=== PATIENT | female | born 1955 | race Caucasian/White ===

== ENCOUNTER 2018-06-24 08:48 | Observation (INO) | payer OTHER ==
--- OUTSIDE RECORDS SUMMARY | 2018-06-24 08:54 | XMS REPORT | Continuity of Care Document ---
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 FOLLOW UP Active 11/27/[address] 6 MONTH FOLLOW UP Active 11/24/[address] Discharge 06/22/20 06/25/2017 [facility] Diagnosis: Chest 17 [facility] pain 3 MONTH FOLLOW Active 02/01/20 [facility] ER FOLLOW UP Active 02/01/[address] Discharge 01/05/20 01/07/2017 [facility] Diagnosis: Acute 17 [facility] pain of both knees Discharge 01/05/20 01/07/2017 [facility] Diagnosis: 17 [facility] Effusion of knee joint, left KNEE PAIN Active 01/05/20 [facility] 17 [facility] LOW BACK PAIN Active 10/15/20 [facility] 16 [facility] Discharge 10/13/20 10/16/2016 [facility] Diagnosis: Acute 16 [facility] diverticulitis Discharge 10/13/20 10/16/2016 [facility] Diagnosis: 16 Hospital Abdominal pain, acute, left lower quadrant ABD PAIN Active 10/13/20 [facility] 16 Hospital 3 MONTH FOLLOW UP Active 09/06/[address] OBESITY Active 09/06/20 [facility] H[facility]PITAL FOLLOW UP Active 06/08/[address] CHEST PAIN Active 06/07/20 [facility] 16 [facility] ACUTE BACK Active 06/07/20 [facility] PAIN/SOB 16 Hospital CHEST PAIN Active 06/07/[address] Cardiac Active Problem 03/19/2018 [facility] catheterization Neuro,[facility],Sudarshan Galarza,[facility], [facility] Hyperlipemia Active Problem 03/19/2018 [facility] Neuro,[facility],Sudarshan Galarza,[facility], [facility] Hypertension Active Problem 03/19/2018 [facility] Neuro,[facility] J LUIS Galarza,[facility], [facility] [place] (<span Active Problem 03/19/2018 [facility] ID="[id number]"> Neuro, Confirmed</span>) [facility] J LUIS Galarza,[facility], [facility] Morbid obesity Active Problem 03/19/2018 [facility] Neuro, J LUIS Galarza,[facility] OA (<span Resolved Problem 03/19/2018 [facility] ID="[id number]"> Neuro, Confirmed</span>) [facility] J LUIS Galarza,[facility], [facility] Stent Active Problem 10/30/2017 [facility], J LUIS Galarza, [facility] Low back pain 03/14/2018 [facility] Degenerative 03/14/2018 [facility] disease of nervous [facility] system, unspecified 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 [facility] or radiculopathy, 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/2018 [facility]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, lumbar region Spinal stenosis, 03/14/2018 [facility] lumbar region [facility] without neurogenic claudication Unspecified 03/14/2018 [facility] dementia without [facility] behavioral disturbance Chest pain, 03/05/2018 [facility] Coronary 03/05/2018 [facility] angioplasty status Medical Center Essential 03/05/2018 [facility] hypertension [facility] Center Hyperlipidemia, 03/05/2018 [facility] Unspecified 03/05/2018 [facility] osteoarthritis, Medical unspecified site Center Morbid obesity due 03/05/2018 [facility] to excess calories Medical Center Old myocardial 03/05/2018 [facility] infarction [facility] Center Myasthenia gravis 03/05/2018 [facility] without Medical exacerbation Center CHEST PAIN, Active [facility] Active [facility] ADULT MEDICAL EXAM Medical W/ Center OBESITY, Active [facility] UNSPECIFIED Rehab Medications Medication Details Route Status Patient Ordering Order Source Instructions Provider Date tizanidine 4 mg 4 mg=1 tab, PO, Active 12/12/ Leonel oral tablet Bedtime, # 30 2018 Neuro tab, 3 Refill(s), Pharmacy: [facility] [id number] predniSONE 2.5 2.5 mg=1 tab, Active 12/12/ [facility] mg oral tablet PO, Daily, # 2017 Neuro tab, 3 Refill(s), Pharmacy: [facility] [id number] pyridostigmine 180 mg=1 tab, Active 12/12/ [facility] 180 mg oral PO, QAM, # 2017 Neuro tablet, extended tab, 3 release Refill(s), Pharmacy: [facility] [id number] tizanidine 4 mg 4 mg=1 tab, PO, Active 09/21/ [facility] oral tablet Bedtime, # 30 2016 Neuro tab, 1 Refill(s), Pharmacy: [facility] [id number] pyridostigmine 60 mg=1 tab, Active 09/19/ [facility] 60 mg oral PO, TID, # 90 2016 Neuro tablet tab, 2 Refill(s), Pharmacy: [facility] [address]649 atorvastatin 80 80 mg=1 tab, Active [place] mg oral tablet PO, Daily, # 90 2017 Medical tab, 3 Center Refill(s), Pharmacy: [facility] [id number] isosorbide See Active [place] mononitrate 30 Instructions, 3 2017 Medical mg oral tablet, tabs PO QAM, # Center extended release 90 tab, 2 Refill(s), Pharmacy: [facility] [address] Aspirin 324 mg, 4 tab, No Longer [facility] Route: PO, Drug Active 2017 Hospital form: CHEWTAB, ONCE, Dosing Weight 119.091, kg, Priority: STAT, Start date: 06/21/17 22:42:00 CDT, Stop date: 06/21/17 22:42:00 CDTNotes: Take with food. Nitroglycerin 1 inch, Route: No Longer [facility] 0.02 MG/MG TOP, Drug Form: Active 2017 [facility] Topical Ointment OINT, Dosing Weight 119.091, kg, ONCE, STAT, Start date: 06/21/17 22:42:00 CDT, Stop date: 06/21/17 22:42:00 CDTNotes: 1 gram is approximately 1 inch of nitroglycerin ointment (20 mg NTG per gram) (Same as:Nitro-Bid) Saline Flush 10 mL, Route: No Longer [facility] 0.9% IVP, Drug Form: Active 2016 Hospital INJ, Dosing Weight 119.091, kg, PRN, PRN Line Flush, Start date: 06/21/17 22:42:00 CDT, Duration: 30 day, Stop date: 07/21/17 22:41:00 CDTNotes: (Same as: BD Posiflush) Saline Flush 10 mL, Route: Inactive [facility] 0.9% IVP, Drug Form: 2017 Hospital INJ, Dosing Weight 119.091, kg, PRN, PRN Line Flush, Start date: 06/21/17 18:13:00 CDT, Duration: 30 day, Stop date: 07/21/17 18:12:00 CDTNotes: (Same as: BD Posiflush) 24 HR Isosorbide 60 mg=1 tab, Active [place] Mononitrate 60 PO, QAM, # 30 2017 Medical MG Extended tab, 11 Center Release Tablet Refill(s), [Imdur] Pharmacy: [facility] [id number] valsartan 320 mg 320 mg=1 tab, Active [facility] oral tablet PO, Daily, # 30 2016 Medical tab, 11 Center Refill(s), Pharmacy: [facility] [id number] spironolactone 25 mg=1 tab, Active [place] 25 mg oral PO, Daily, # 30 2016 Medical tablet tab, 11 Center Refill(s), Pharmacy: [facility] [address] prasugrel 10 MG 10 mg=1 tab, Active [facility] Oral Tablet PO, Daily, # 30 2017 Medical [Effient] tab, 11 Center Refill(s), [facility] [id number] atorvastatin 80 80 mg=1 tab, Active [place] mg oral tablet PO, Daily, # 30 2017 Medical tab, 0 Center Refill(s), [facility] [address] Acetaminophen 1 tab, PO, Q6H, Active [facility] 325 MG / X 5 day, # 20 2017 Hospital Hydrocodone tab, 0 Bitartrate 5 MG Refill(s) Oral Tablet [[place] 5/325] {21 See Active [facility] (Methylprednisol Instructions, 2017 [facility] one 4 MG Oral PO, Take by Tablet [Medrol]) mouth as } Pack [Medrol directed on Dosepak] label., # 1 Pack, 0 Refill(s) naproxen 250 mg 250 mg=1 tab, Active [facility] oral tablet PO, BID, X 7 2016 Hospital day, # 14 tab, 0 Refill(s) BD Normal Saline 10 mL, Route: Inactive [facility] Flush IV, Drug Form: [address] [place] [address] INJ, PRN, PRN Line Flush, Start date: 01/04/17 12:28:00 CDT, Duration: 30 day, Stop date: 02/03/17 12:27:00 CDTNotes: (Same as: BD Posiflush) Motrin 600 mg, Route: Inactive [facility] PO, Drug form: 2017 [facility] TAB, ONCE, Dosing Weight 119.545, kg, Priority: STAT, Start date: 01/04/17 12:15:00 CDT, Stop date: 01/04/17 12:15:00 CDT valsartan 320 mg, 2 tab, No Longer [facility] Route: PO, Drug Active 2015 Hospital form: TAB, Daily, Dosing Weight 118.182, kg, Start date: 10/18/16 9:00:00 GUEST RELATIONS COORDINATOR, Duration: 30 day, Stop date: 11/16/16 9:00:00 CSTNotes: Same as Sang pantoprazole 40 40 mg=1 tab, Active [facility] mg oral enteric PO, Daily, # 30 2015 Hospital coated tablet tab, 1 Refill(s), Pharmacy: [facility] [id number] moxifloxacin 400 400 mg=1 tab, Active [facility] MG Oral Tablet PO, Daily, X 10 2015 Hospital day, # 10 tab, 0 Refill(s), Pharmacy: [facility] [address] Tylenol 650 mg, 2 tab, Inactive [facility] Route: PO, Drug 2015 Hospital form: TAB, Q6H, Dosing Weight 118.182, kg, PRN Pain 1-3/Temp > 100.4 F, Start date: 10/17/16 13:12:00 GUEST RELATIONS COORDINATOR, Duration: 30 day, Stop date: 11/16/16 13:11:00 CSTNotes: Do not exceed 4 gm/day. (Same as: Tylenol) valsartan 320 mg, 2 tab, Inactive Route: PO, Drug 2015 Hospital form: TAB, ONCE, Dosing Weight 118.182, kg, Start date: 10/17/16 13:11:00 GUEST RELATIONS COORDINATOR, Stop date: 10/17/16 13:11:00 CSTNotes: Same as Diovan Levaquin 750 mg, 150 mL, No Longer [facility] Route: IV, Drug Active 2015 Hospital form: SOLN, [id number], Start date: 10/16/16 11:30:00 GUEST RELATIONS COORDINATOR, Duration: 30 day, Stop date: 11/14/16 11:30:00 CSTNotes: (Same as:Levaquin) Lovenox 40 mg, 0.4 mL, No Longer [facility] Route: SUB-Q, Active 2015 Hospital Drug form: INJ, [id number], Dosing Weight 118.182, kg, Start date: 10/16/16 9:00:00 GUEST RELATIONS COORDINATOR, Duration: 30 day, Stop date: 11/14/16 9:00:00 CSTNotes: (Same as: Lovenox) Spironolactone 25 mg, 1 tab, No Longer [facility] Route: PO, Drug Active 2015 Hospital form: TAB, Daily, Dosing Weight 118.182, kg, Start date: 10/16/16 9:00:00 GUEST RELATIONS COORDINATOR, Duration: 30 day, Stop date: 11/14/16 9:00:00 CSTNotes: (Same As: Aldactone) Imdur 60 mg, 1 tab, No Longer [facility] Route: PO, Drug Active 2015 Hospital form: ERTAB, QAM, Dosing Weight 118.182, kg, Start date: 10/16/16 9:00:00 GUEST RELATIONS COORDINATOR, Duration: 30 day, Stop date: 11/14/16 9:00:00 CSTNotes: (Same as:Imdur) "Do Not Crush" Take on empty stomach/ full glass of water. Do not crush moxifloxacin 400 mg, Route: Inactive [facility] IVPB, [id number], 2015 Hospital Dosing Weight 118.182, kg, Start date: 10/16/16 9:00:00 GUEST RELATIONS COORDINATOR, Duration: 30 day, Stop date: 11/14/16 9:00:00 GUEST RELATIONS COORDINATOR Lunesta 3 mg, Route: Inactive [facility] PO, Drug form: 2015 Hospital TAB, Bedtime, Dosing Weight 118.182, kg, PRN Insomnia, Start date: 10/16/16 8:27:00 GUEST RELATIONS COORDINATOR, Duration: 30 day, Stop date: 11/15/16 8:26:00 GUEST RELATIONS COORDINATOR Diazepam 2 mg, 1 tab, No Longer [facility] Route: PO, Drug Active 2015 Hospital form: TAB, BID, Dosing Weight 118.182, kg, PRN Anxiety, Start date: 10/16/16 8:27:00 GUEST RELATIONS COORDINATOR, Duration: 30 day, Stop date: 11/15/16 8:26:00 CSTNotes: (Same as: Valium) Protonix Route: IVP, No Longer [facility] BID-Before Active 2015 Hospital Meals, Dosing Weight 118.182, kg, Start date: 10/16/16 7:30:00 GUEST RELATIONS COORDINATOR, Duration: 30 day, Stop date: 11/14/16 16:30:00 CSTNotes: For IV push reconstitute with 10 ml 0.9% sodium chloride and push over 2 minutes. (Same as: Protonix) atorvastatin 80 mg, 4 tab, No Longer [facility] Route: PO, Drug Active 2015 Hospital form: TAB, Daily, Dosing Weight 118.182, kg, Start date: 10/15/16 21:00:00 GUEST RELATIONS COORDINATOR, Duration: 30 day, Stop date: 11/13/16 21:00:00 CSTNotes: (Same As: Lipitor) Carbamazepine 300 mg, 3 tab, No Longer [facility] Route: PO, Drug Active 2015 Hospital form: ERTAB, Bedtime, Dosing Weight 118.182, kg, Start date: 10/15/16 21:00:00 GUEST RELATIONS COORDINATOR, Stop date: 11/13/16 21:00:00 CSTNotes: Do not crush or chew. (Same As: Tegretol XR) Sucralfate 100 1 gm, 1 tab, No Longer [facility] MG/ML Oral Route: PO, Drug Active [address] [place] [address] Suspension form: TAB, QID, [Carafate] Dosing Weight 118.182, kg, Start date: 10/15/16 17:00:00 GUEST RELATIONS COORDINATOR, Duration: 30 day, Stop date: 11/14/16 13:00:00 CSTNotes: May interfere w/enteral feeds - Take 1 hr before or 2 hr after antacids, dairy pdt, meals & minerals - On empty stomach. For patients unable to swallow tablet, dissolve in 10mL - 30mL of water or juice and stir before giving. (Same As: Carafate) Protonix 40 mg, Route: Inactive [facility] IVP, Drug form: [address] [place] [address] INJ, Before Dinner, Dosing Weight 118.182, kg, Start date: 10/15/16 16:30:00 GUEST RELATIONS COORDINATOR, Duration: 30 day, Stop date: 11/13/16 16:30:00 CSTNotes: For IV push reconstitute with 10 ml 0.9% sodium chloride and push over 2 minutes. (Same as: Protonix) Phenergan 12.5 mg, 0.5 Inactive 10/15[facility] mL, Route: IV [address] [place] [address] Central, Q6H, Dosing Weight 118.182, kg, PRN Nausea & Vomiting, Start date: 10/15/16 10:03:00 GUEST RELATIONS COORDINATOR, Duration: 30 day, Stop date: 11/14/16 10:02:00 CSTNotes: Do not give IV push. (Same as: Phenergan) Phenergan 12.5 mg, Route: Inactive [facility] IV Central, [address] [place] [address] Q6H, Dosing Weight 118.182, kg, PRN Nausea & Vomiting, Priority: STAT, Start date: 10/15/16 9:30:00 GUEST RELATIONS COORDINATOR, Duration: 30 day, Stop date: 11/14/16 9:29:00 GUEST RELATIONS COORDINATOR Dilaudid 0.5 mg, 0.25 Inactive 10/15[facility] mL, Route: IVP, [address] [place] [address] Drug form: INJ, Q6H, Dosing Weight 118.182, kg, PRN Pain Score 7-10, if morphine is not working, Priority: STAT, Start date: 10/15/16 9:29:00 GUEST RELATIONS COORDINATOR, Duration: 30 day, Stop date: 11/14/16 9:28:00 CSTNotes: Same as Dilaudid Effient 10 mg, 1 tab, No Longer [facility] Route: PO, Drug Active 2015 [facility] form: TAB, Daily, Dosing Weight 118.182, kg, Start date: 10/15/16 9:00:00 GUEST RELATIONS COORDINATOR, Duration: 30 day, Stop date: 11/13/16 9:00:00 CSTNotes: Same as Effient For patients 60kg, without history of TIA/Ischemic stroke and without likely bypass surgery Pramipexole 0.25 mg, 1 tab, No Longer [facility] Route: PO, Drug Active 2015 [facility] form: TAB, TID, Dosing Weight 118.182, kg, Start date: 10/15/16 9:00:00 GUEST RELATIONS COORDINATOR, Duration: 30 day, Stop date: 11/13/16 17:00:00 CSTNotes: (Same as: Mirapex) Ambien 5 mg, 1 tab, No Longer [facility] Route: PO, Drug Active [address] [place] [address] form: TAB, Bedtime, PRN Insomnia, Start date: 10/15/16 3:18:00 GUEST RELATIONS COORDINATOR, Duration: 30 day, Stop date: 11/14/16 3:17:00 CSTNotes: (Same As: Ambien) Nitroglycerin 0.4 mg, 1 tab, No Longer [facility] 0.4 MG Route: SL, Drug Active [address] [place] [address] Sublingual form: TAB, Tablet Q5Min, Dosing Weight 118.182, kg, PRN Chest Pain, Start date: 10/15/16 3:10:00 GUEST RELATIONS COORDINATOR, Duration: 30 day, Stop date: 11/14/16 3:09:00 CSTNotes: (Same as:Nitroquick, Nitrostat) "Do Not Crush" Sublingual tablet Lunesta 3 mg, Route: Inactive [facility] PO, Drug form: [address] [place] [address] TAB, Bedtime, Dosing Weight 118.182, kg, PRN Insomnia, Start date: 10/15/16 3:10:00 GUEST RELATIONS COORDINATOR, Duration: 30 day, Stop date: 11/14/16 3:09:00 GUEST RELATIONS COORDINATOR Morphine 2 mg, 1 mL, Inactive [facility] Route: IVP, 2015 [facility] Drug form: SOLN, ONCE, Dosing Weight 118.182, kg, Start date: 10/15/16 2:19:00 GUEST RELATIONS COORDINATOR, Stop date: 10/15/16 2:19:00 GUEST RELATIONS COORDINATOR Sodium Chloride 25 mL, Route: No Longer [facility] 0.9% IV IV, Start date: Active [address] [place] [address] 10/15/16 0:54:00 GUEST RELATIONS COORDINATOR, Duration: 30 day, Stop date: 11/14/16 0:53:00 GUEST RELATIONS COORDINATOR, PRN Line Flush pantoprazole Route: IVP, Inactive [facility] Daily, Dosing 2015 Hospital Weight 117.727, kg, Priority: NOW, Start date: 10/15/16 0:45:00 GUEST RELATIONS COORDINATOR, Duration: 30 day, Stop date: 11/13/16 16:30:00 CSTNotes: For IV push reconstitute with 10 ml 0.9% sodium chloride and push over 2 minutes. (Same as: Protonix) Dextrose 5% with 1,000 mL, Rate: Inactive [facility] 0.45% NaCl IV 125 ml/hr, [address] [place] [address] 1000 mL Infuse over: 8 hr, Route: IV, Dosing Weight 117.727 kg, Total Volume: 1,000, Start date: 10/15/16 0:39:00 GUEST RELATIONS COORDINATOR, Duration: 30 day, Stop date: 11/14/16 0:38:00 GUEST RELATIONS COORDINATOR Flagyl 500 mg, 100 mL, No Longer [facility] Route: IVPB, Active 2015 [facility] Drug form: INJ, [id number], Dosing Weight 117.727, kg, Priority: NOW, Start date: 10/15/16 0:38:00 GUEST RELATIONS COORDINATOR, Duration: 30 day, Stop date: 11/13/16 20:00:00 CSTNotes: (Same as: Flagyl) Avoid alcohol. Ciprofloxacin 400 mg, 200 mL, No Longer [facility] Route: IVPB, Active 2015 [facility] Drug form: INJ, [id number], Dosing Weight 117.727, kg, Priority: NOW, Start date: 10/15/16 0:38:00 GUEST RELATIONS COORDINATOR, Duration: 30 day, Stop date: 11/13/16 13:00:00 CSTNotes: Do not refrigerate Acetaminophen 650 mg, 1 supp, No Longer [facility] Route: [place], Drug [facility] 2015 [facility] form: SUPP, Q4H, Dosing Weight 117.727, kg, PRN Pain 1-3/Temp > 100.4 F, Start date: 10/15/16 0:36:00 GUEST RELATIONS COORDINATOR, Duration: 30 day, Stop date: 11/14/16 0:35:00 CSTNotes: Max acetaminophen=4 000 mg/day (4 gm/day). (Same as: Tylenol) Morphine 2 mg, 1 mL, No Longer [facility] Route: IVP, [facility] 2015 [facility] Drug form: SOLN, Q3H, Dosing Weight 117.727, kg, PRN Pain Score 7-10, Start date: 10/15/16 0:36:00 GUEST RELATIONS COORDINATOR, Duration: 30 day, Stop date: 11/14/16 0:35:00 GUEST RELATIONS COORDINATOR Saline Flush 10 ml, Route: No Longer [facility] 0.9% IVP, Drug Form: [address] INJ, Dosing Weight 117.727, kg, PRN, PRN Line Flush, Start date: 10/15/16 0:36:00 GUEST RELATIONS COORDINATOR, Duration: 30 day, Stop date: 11/14/16 0:35:00 CSTNotes: (Same as: BD Posiflush) Ondansetron 4 mg, 2 mL, No Longer [facility] Route: IVP, [address] Drug form: INJ, Q6H, Dosing Weight 117.727, kg, PRN Nausea & Vomiting, Start date: 10/15/16 0:36:00 GUEST RELATIONS COORDINATOR, Duration: 30 day, Stop date: 11/14/16 0:35:00 CSTNotes: (Same as: Zofran) MEDICATION WASTE Product Size: 4 mg Product Wasted: _0__ mg D5W 1/2NS 1,000 1,000 mL, Rate: No Longer [facility] mL 125 ml/hr, [address] Infuse over: 8 hr, Route: IV, Dosing Weight 117.727 kg, Total Volume: 1,000, Start date: 10/15/16 0:36:00 GUEST RELATIONS COORDINATOR, Duration: 30 day, Stop date: 11/14/16 0:35:00 GUEST RELATIONS COORDINATOR Ondansetron 4 mg, Route: No Longer [facility] IVP, Drug form: Active 2016 [facility] INJ, ONCE, Dosing Weight 117.727, kg, Priority: STAT, Start date: 10/14/16 22:17:00 GUEST RELATIONS COORDINATOR, Stop date: 10/14/16 22:17:00 GUEST RELATIONS COORDINATOR Sodium Chloride 1,000 mL, 2,000 No Longer [facility] 0.154 MEQ/ML ml/hr, Infuse Active 2016 [facility] Injectable Over: 30 Solution minutes, Route: IV, ONCE, Priority: STAT, Dosing Weight 117.727 kg, Start date: 10/14/16 22:17:00 GUEST RELATIONS COORDINATOR, Duration: 1 doses or times, Stop date: 10/14/16 22:17:00 GUEST RELATIONS COORDINATOR Metronidazole 500 mg=1 tab, On Hold [facility] 500 MG Oral PO, TID, # 30 2015 [facility] Tablet [Flagyl] tab, 0 Refill(s) Ciprofloxacin 500 mg=1 tab, On Hold [facility] 500 MG Oral PO, Q12H, # [address] [place] [address] Tablet [Cipro] tab, 0 Refill(s) tramadol 50 mg=1 tab, On Hold [facility] hydrochloride 50 PO, Q4H, PRN 2015 Hospital MG Oral Tablet Pain, # 20 tab, 0 Refill(s) Cipro 500 mg, 1 tab, Inactive [facility] Route: PO, Drug 2015 [facility] form: TAB, ONCE, Dosing Weight 117.773, kg, Priority: STAT, Start date: 10/13/16 14:42:00 GUEST RELATIONS COORDINATOR, Stop date: 10/13/16 14:42:00 CSTNotes: May interfere w/enteral feedings - Take 1 hr before or 2 hrs after antacids, dairy pdt & minerals. On empty stomach. Flagyl 500 mg, 1 tab, Inactive [facility] Route: PO, Drug 2015 [facility] form: TAB, ONCE, Dosing Weight 117.773, kg, Priority: STAT, Start date: 10/13/16 14:42:00 GUEST RELATIONS COORDINATOR, Stop date: 10/13/16 14:42:00 CSTNotes: (Same as: Flagyl) Take with food/ avoid alcohol Sodium Chloride IV, 0 ml/hr, Inactive [facility] 0.9% IV PRN, PRN Line [address] [place] [address] Flush, Start date: 10/13/16 12:15:00 GUEST RELATIONS COORDINATOR, Duration: 30, 25 ml BD Normal Saline 10 mL, Route: Inactive [facility] Flush IV, Drug Form: [address] [place] [address] INJ, PRN, PRN Line Flush, Start date: 10/13/16 12:15:00 GUEST RELATIONS COORDINATOR, Duration: 30 day, Stop date: 11/12/16 12:14:00 CSTNotes: (Same as: BD Posiflush) Morphine 4 mg, 1 mL, Inactive [facility] Route: IVP, [address] [place] [address] Drug form: INJ, ONCE, Dosing Weight 117.727, kg, Priority: STAT, Start date: 10/13/16 12:07:00 GUEST RELATIONS COORDINATOR, Stop date: 10/13/16 12:07:00 CSTNotes: (Same as:MORPhine Sulfate) Sodium Chloride 1,000 mL, 2,000 Inactive [facility] 0.154 MEQ/ML ml/hr, Infuse [address] [place] [address] Injectable Over: 30 Solution minutes, Route: IV, 1,000, Drug form: INJ, ONCE, Priority: STAT, Dosing Weight 117.727 kg, Start date: 10/13/16 12:07:00 GUEST RELATIONS COORDINATOR, Duration: 1 doses or times, Stop date: 10/13/16 12:07:00 GUEST RELATIONS COORDINATOR Ondansetron 4 mg, 2 mL, Inactive [facility] Route: IVP, [address] [place] [address] Drug form: INJ, ONCE, Dosing Weight 117.727, kg, Priority: STAT, Start date: 10/13/16 12:07:00 GUEST RELATIONS COORDINATOR, Stop date: 10/13/16 12:07:00 CSTNotes: (Same as: Zofran) MEDICATION WASTE Product Size: 4 mg Product Wasted: _0__ mg diazepam 2 mg 2 mg=1 tab, PO, Active [place] oral tablet BID, PRN 2016 [facility] Anxiety, # 60 Center tab, 0 Refill(s) pramipexole 0.25 0.25 mg=1 tab, Active [place] mg oral tablet PO, TID, 0 2015 Medical Refill(s) Center Trazodone 100 mg=1 tab, Active [place] Hydrochloride PO, Bedtime, # 2016 Medical 100 MG Oral 30 tab, 0 Center Tablet Refill(s) carBAMazepine 300 mg=1 cap, Active [place] 300 mg oral PO, Bedtime, 0 2016 Medical capsule, Refill(s) Center extended release Baclofen 20 mg, 2 tab, Inactive [facility] Route: PO, Drug 2016 Hospital form: TAB, ONCE, Dosing Weight 116.591, kg, Start date: 06/08/16 10:16:00 CDT, Stop date: 06/08/16 10:16:00 CDTNotes: (Same As: Lioresal) baclofen 20 mg 20 mg=1 tab, Active [facility] oral tablet PO, TID, PRN 2016 [facility] Spasms, # 90 tab, 0 Refill(s) 24 HR Isosorbide 60 mg=1 tab, Active [facility] Mononitrate 60 PO, QAM, # 30 2016 Hospital MG Extended tab, 11 Release Tablet Refill(s) [Imdur] Nitroglycerin 0.4 mg=1 tab, Active [facility] 0.4 MG SL, Q5Min, PRN 2016 [facility] Sublingual Chest pain, Tablet Give up to 3 doses. Call 911 if pain persists., # 100 tab, 3 Refill(s) valsartan 320 mg, 2 tab, Inactive [facility] Route: PO, Drug 2015 Hospital form: TAB, Daily, Dosing Weight 116.364, kg, Start date: 06/08/16 9:00:00 CDT, Duration: 30 day, Stop date: 07/07/16 9:00:00 CDTNotes: Same as Diovan Spironolactone 25 mg, 1 tab, Inactive [facility] Route: PO, Drug 2015 Hospital form: TAB, Daily, Dosing Weight 116.364, kg, Start date: 06/08/16 9:00:00 CDT, Duration: 30 day, Stop date: 07/07/16 9:00:00 CDTNotes: (Same As: Aldactone) Effient 10 mg, 1 tab, Inactive [facility] Route: PO, Drug 2015 Hospital form: TAB, Daily, Dosing Weight 116.364, kg, Start date: 06/08/16 9:00:00 CDT, Duration: 30 day, Stop date: 07/07/16 9:00:00 CDTNotes: Same as Effient For patients 60kg, without history of TIA/Ischemic stroke and without likely bypass surgery Wellbutrin 300 mg, 2 tab, Inactive [facility] Route: PO, Drug 2015 Hospital form: ERTAB, Daily, Dosing Weight 116.364, kg, Start date: 06/08/16 9:00:00 CDT, Duration: 30 day, Stop date: 07/07/16 9:00:00 CDT Aspirin 325 MG 325 mg, 1 tab, Inactive [facility] Enteric Coated Route: PO, Drug 2015 [facility] Tablet form: ECTAB, Daily, Dosing Weight 100, kg, Start date: 06/08/16 9:00:00 CDT, Duration: 30 day, Stop date: 07/07/16 9:00:00 CDTNotes: (Do Not Crush) Do not crush or chew. atorvastatin 80 mg, 4 tab, No Longer [facility] Route: PO, Drug Active 2015 Hospital form: TAB, Bedtime, Dosing Weight 116.364, kg, Start date: 06/07/16 23:00:00 CDT, Duration: 30 day, Stop date: 07/07/16 21:00:00 CDTNotes: (Same As: Lipitor) Ambien 5 mg, 1 tab, No Longer [facility] Route: PO, Drug Active 2015 Hospital form: TAB, Bedtime, PRN Sleep, Start date: 06/07/16 22:16:00 CDT, Duration: 30 day, Stop date: 07/07/16 22:15:00 CDTNotes: (Same As: Ambien) Lunesta 3 mg, Route: Inactive [facility] PO, Drug form: 2016 Hospital TAB, Bedtime, Dosing Weight 116.364, kg, PRN Insomnia, Start date: 06/07/16 21:11:00 CDT, Duration: 30 day, Stop date: 07/07/16 21:10:00 CDT heparin 5,000 unit, 1 No Longer [facility] mL, Route: Active 2015 [facility] SUB-Q, Drug form: INJ, Q12H, Dosing Weight 100, kg, Start date: 06/07/16 21:00:00 CDT, Duration: 30 day, Stop date: 07/07/16 9:00:00 CDTNotes: porcine heparin Saline Flush 10 ml, Route: No Longer [facility] 0.9% IVP, Drug Form: Active 2015 [facility] INJ, Dosing Weight 100, kg, Q12H, Start date: 06/07/16 21:00:00 CDT, Duration: 30 day, Stop date: 07/07/16 9:00:00 CDTNotes: (Same as: BD Posiflush) valsartan 320 mg 320 mg=1 tab, Active [facility] oral tablet PO, Daily, # 30 2016 Hospital tab, 0 Refill(s) spironolactone 25 mg=1 tab, Active [facility] 25 mg oral PO, Daily, # 30 2016 Hospital tablet tab, 3 Refill(s) Wellbutrin 300 mg, PO, Active [facility] Daily, 0 2016 Hospital Refill(s) Eszopiclone 3 MG 3 mg=1 tab, PO, Active [facility] Oral Tablet Bedtime, PRN 2016 [facility] [Lunesta] for insomnia, # 30 tab, 0 Refill(s) prasugrel 10 MG 10 mg=1 tab, Active [facility] Oral Tablet PO, Daily, # 30 2016 Hospital [Effient] tab, 0 Refill(s) atorvastatin 80 80 mg=1 tab, Active [facility] mg oral tablet PO, Daily, # 90 2016 Hospital tab, 3 Refill(s) Saline Flush 10 ml, Route: Inactive [facility] 0.9% IVP, Drug Form: 2015 [facility] INJ, Dosing Weight 100, kg, PRN, PRN Line Flush, Start date: 06/07/16 18:28:00 CDT, Duration: 30 day, Stop date: 07/07/16 18:27:00 CDTNotes: (Same as: BD Posiflush) Nitroglycerin 0.4 mg, 1 tab, No Longer [facility] Route: SL, Drug Active 2015 Hospital form: TAB, Q5Min, Dosing Weight 100, kg, PRN Chest Pain, Start date: 06/07/16 18:28:00 CDT, Duration: 3 doses or times, Stop date: Limited # of timesNotes: (Same as:Nitroquick, Nitrostat) "Do Not Crush" Sublingual tablet Morphine 2 mg, 1 mL, No Longer [facility] Route: IVP, Active 2015 [facility] Drug form: INJ, Q15Min, Dosing Weight 100, kg, PRN Chest Pain, Start date: 06/07/16 18:28:00 CDT, Duration: 2 doses or times, Stop date: Limited # of timesNotes: (Same as:MORPhine Sulfate) Ondansetron 4 mg, 1 tab, No Longer [facility] Route: PO, Drug Active 2015 Hospital form: TAB, Q4H, Dosing Weight 100, kg, PRN Nausea & Vomiting, Start date: 06/07/16 18:28:00 CDT, Duration: 30 day, Stop date: 07/07/16 18:27:00 CDTNotes: (Same as: Zofran) Aspirin 324 mg, 4 tab, Inactive [facility] Route: CHEW, 2015 Hospital Drug form: CHEWTAB, ONCE, Dosing Weight 100, kg, Priority: STAT, Start date: 06/07/16 17:40:00 CDT, Stop date: 06/07/16 17:40:00 CDTNotes: Take with food. Sodium Chloride 25 mL, Route: No Longer [facility] 0.9% IV IV, Start date: Active 2016 Hospital 06/07/16 15:59:00 CDT, Duration: 30 day, Stop date: 07/07/16 15:58:00 CDT, PRN Line Flush Saline Flush 10 mL, Route: No Longer [facility] 0.9% IVP, Drug Form: Active 2015 [facility] INJ, Dosing Weight 100, kg, PRN, PRN Line Flush, Start date: 06/07/16 15:55:00 CDT, Duration: 30 day, Stop date: 07/07/16 15:54:00 CDTNotes: (Same as: BD Posiflush) Allergies, Adverse Reactions, Alerts Substance Category Reaction Severity Reaction Status Date Comments Source type Reported penicillins Assertion Drug Active [facility] allergy Neuro tetanus Assertion Drug Active [facility] toxoid allergy Neuro Immunizations Immunization Date Given Site Status Last Updated Comments Source Results Order Name Results Value Reference Date Interpretation Comments Source Range Brain wo Brain wo Procedure: MRI Brain without contrast. 12/06 [facility] contrast contrast MRI /2017 - [facility] Clinical Indication: Memory loss, dementia. Read by: Preston Voss MD Dictated Date/time: 12/06/17 15:24 Electronically Signed by: Preston Voss MD 12/06/17 15:28 FINAL REPORT Comparison: Head CT 06/21/2017. TECHNIQUE: Multiplanar MRI of the brain was performed without contrast. FINDINGS: BRAIN PARENCHYMA: There is minimal generalized brain parenchymal atrophy. Nonspecific periventricular white matter foci of increased T2 and FLAIR signal are seen, likely related to small vesse l disease. There is no mass effect or midline shift. There is no extra- axial fluid collection or intraparenchymal hemorrhage. The corpus callosum is unremarkable. There is no diffusion weighted imaging or ADC map abnormality to suggest acute/subacute ischemia. There is no magnetic susceptibility to suggest recent or remote intracranial hemorrhage. CEREBELLOPONTINE REGIONS AND SKULL BASE: The cerebellopontine angles appear unremarkable. The skull base, craniocervical junction, and brainstem regions are normal. The optic chiasm is normal. The sellar and pineal regions are unremarkable. VENTRICLES: The ventricles are minimally dilated. The basilar cisterns are normal. VISUALIZED VESSELS:The venous sinuses are grossly unremarkable. The expected intracranial flow voids are present. ORBITS, VISUALIZED PARANASAL SINUSES AND MASTOIDS: The orbits are maintained. The visualized paranasal sinuses are unremarkable. The mastoid air cells are pneumatized. IMPRESSION: 1. No acute intracranial abnormality without acute stroke, hemorrhage or mass. 2. Minimal brain parenchymal atrophy with associated nonspecific periventricular white matter disease changes/small vessel disease. [id number] Spine Spine lumbar MRI LUMBAR SPINE WITHOUT CONTRAST 12/06 [facility] lumbar wo wo contrast /2017 - [facility] contrast MRI MRI HISTORY: Low back pain. Read by: Scooby Noble MD Dictated Date/time: 12/06/17 15:33 Electronically Signed by: Scooby Noble 12/06/17 15:39 FINAL REPORT FINDINGS: COMPARISON: None TECHNIQUE: Multiplanar, multi-sequence surface-coil MR imaging of the lumbar spine was performed without contrast. LEVELS IMAGED: Lower thoracic to upper sacral region FINDINGS: Conus: Terminates at T12-L1. Normal signal and contour. Vertebrae: There is 5 lumbar type vertebral bodies. Scattered vertebral hemangioma. Otherwise marrow signal is within normal limits. Vertebral heights are maintained. Normal alignment. Paraspinal soft tissues: No edema or masses. Discs: T12-L1: No significant central canal, lateral recess or foraminal stenosis L1-L2: No significant suture canal, lateral recess or foraminal stenosis. Mild facet disease. L2-L3: Small bulging disc minimally indenting the ventral thecal sac. No significant lateral recess stenosis. Minimal right foraminal narrowing. Mild facet disease. L3-L4: Minimal bulging discs very slightly indenting the ventral thecal sac. Mild to moderate facet disease with slight ligament flavum thickening and small facet effusions. Mild foraminal narrowing. L4-L5: Minimal bulging disc slightly indenting the ventral thecal sac and minimally narrowing the lateral recesses. Moderate facet disease with hypertrophy and ligament flavum thickening slightly in denting the dorsal lateral aspect of the thecal sac producing a slight trefoil configuration of the thecal sac. Mild bilateral foraminal narrowing slightly greater on the left related to endplate osteophytes. L5-S1: Small bulging disc and small foraminal endplate osteophytes. No significant suture canal stenoses. Moderate facet arthrosis with hypertrophy. Foraminal stenosis is mild bilaterally. Additional Comments: None . IMPRESSION: Lumbar spondylosis with degenerative disc disease and facet osteoarthropathy result in mild areas of central canal and foraminal stenosis as detailed above. SL: [id number] Cardiac Cardiac LEXISCAN CARDIOLITE STRESS TEST 07/17 [facility] SPECT multi SPECT [facility] /2017 - [facility] studies (C) studies (C) NM NM Reason for study: chest pain Read by: Kayli Galeas MD Dictated Date/time: 07/17/17 18:08 Electronically Signed by: Kayli Galeas MD 07/17/17 18:11 FINAL REPORT Referring physician: Dr. Galeas Site of injection: Right antecubital vein Stress ECG Results: This patient was stressed by 0.4 mg intravenous lexiscan infused over 10 seconds. Please see the pediatric nephrologist's dictation of this section. Myocardial Perfusion Imaging: Gated myocardial perfusion SPECT imaging was carried out with 32.5 mCi of technetium 99 sestamibi with lexiscan at stress and 13 mCi of technetium 99 sestamibi at rest. Standard imaging planes processed in the short, vertical and horizontal planes The end-diastolic volume is 107 cc , end-systolic volume is 40 cc , and the calculated stroke volume is 67 cc . Both sets of images show an apical defect that improves from rest to stress imaging. SSS: 4 SRS: 3 SDS: 1 TID: 1.02 Raw Images: Breast shadow noted, limited motion artifact. Conclusions: 1. Lexiscan technetium 99 sestamibi study is negative for stress induced ischemia. The apical perfusion defect improving from rest to stress imaging appears to be consistent with shifting breast attenuation artifact. 2. Gated perfusion images showed normal left ventricular function with an estimated ejection fraction of 63% . There are no regional wall motion abnormalities. CARDIAC CK MB 1.2 ng/mL 0.5 - 3.6 06/22 [facility] CARDIAC CK MB Index 0.8 0.0 - 2.5 06/22 [facility] CARDIAC Troponin-I null 0.00 - 06/22 [facility] ENZYMES 0.40 [facility] CARDIAC Total CK 143 unit/L - 06/22 [facility] CARDIAC CK MB Index 0.8 0.0 - 2.5 06/22 [facility] CARDIAC Total CK 154 unit/L 06/22 [facility] CARDIAC CK MB 1.3 ng/mL 0.5 - 3.6 06/22 [facility] CARDIAC Troponin-I null 0.00 - 06/22 [facility] 0.40 2017 Hospital CHEM PANEL eGFR 72 06/22 Result Comment: The eGFR is calculated using the CKD-EPI formula. In most young, healthy individuals the eGFR will be >90 mL/ min/1.73m2. The eGFR declines with age. An eGFR of 60-89 may be normal in mL/min/1.7 some populations, particularly the elderly, for whom the CKD-EPI formula has not been extensively validated. Use of the eGFR is not recommended in the following populations: Hospital 3m2 Individuals with unstable creatinine concentrations, including patients and those with serious co-morbid conditions. Patients with extremes in muscle mass or diet. The data above are obtained from the National Kidney Disease Education Program (NKDEP) which additionally recommends that when the eGFR is used in patients with extremes of body mass index for purposes of drug dosing, the eGFR should be multiplied by the estimated BMI. CHEM PANEL A/G Ratio 1.0 0.7 - 1.6 06/22 Hospital CHEM PANEL B/C Ratio 13 6 - 25 06/22 Hospital CHEM PANEL Globulin 3.7 g/dL 2.7 - 4.2 06/22 Hospital CHEM PANEL Bili Total 0.4 mg/dL 0.2 - 1.3 06/22 Hospital CHEM PANEL AGAP 10.1 meq/L 10.0 - 06/22 20.0 Hospital CHEM PANEL AST 19 unit/L 0 - 37 06/22 Hospital CHEM PANEL Alk Phos 116 unit/L 39 - 136 06/22 Hospital CHEM PANEL Total 7.4 g/dL 6.4 - 8.4 06/22 [facility] CHEM PANEL Albumin Lvl 3.7 g/dL 3.5 - 5.0 06/22 Hospital CHEM PANEL ALT 24 unit/L 0 - 65 06/22 Hospital CHEM PANEL CO2 33 meq/L 24 - 32 06/22 Hospital CHEM PANEL Calcium Lvl 9.1 mg/dL 8.5 - 10.5 06/22 Hospital CHEM PANEL BUN 11 mg/dL 7 - 22 06/22 Hospital CHEM PANEL Sodium Lvl 141 meq/L 135 - 145 06/22 Hospital CHEM PANEL Creatinine 0.87 mg/dL 0.50 - 06/22 Lvl 1.40 Hospital CHEM PANEL Potassium 4.1 meq/L 3.5 - 5.1 06/22 l Hospital CHEM PANEL Glucose Lvl 87 mg/dL 70 - 99 06/22 Hospital CHEM PANEL Chloride Lvl 102 meq/L 95 - 109 06/22 [facility] CHEM PANEL Lipase Lvl 112 unit/L 73 - 393 06/22 [facility] HEMATOLOGY Eosinophils 0.2 K/CMM 0.0 - 0.5 06/22 [facility] # /2016 [facility] HEMATOLOGY Monocytes # 0.5 K/CMM 0.0 - 0.8 06/22 [facility] HEMATOLOGY Lymphocytes 1.9 K/CMM 1.0 - 5.5 06/22 [facility] # [facility] HEMATOLOGY Monocytes 7.9 % 2.0 - 12.0 06/22 [facility] HEMATOLOGY Segs 60.0 % 45.0 - 06/22 [facility] 75.0 [facility] HEMATOLOGY Segs-Bands # 4.0 K/CMM 1.5 - 8.1 06/22 [facility] HEMATOLOGY Basophils 0.6 % 0.0 - 1.0 06/22 [facility] HEMATOLOGY Eosinophils 2.8 % 0.0 - 4.0 06/22 [facility] HEMATOLOGY Lymphocytes 28.7 % 20.0 - 06/22 [facility] 40.0 [facility] HEMATOLOGY MCH 28.4 pg 27.0 - 06/22 [facility] 31.0 [facility] HEMATOLOGY MCV 85.0 fL 80.0 - 06/22 [facility] 98.0 [facility] HEMATOLOGY WBC 6.7 K/CMM 3.7 - 10.4 06/22 [facility] HEMATOLOGY RBC 4.47 M/CMM 4.20 - 06/22 [facility] 5.40 [facility] HEMATOLOGY Hgb 12.7 g/dL 12.0 - 06/22 [facility] 16.0 [facility] HEMATOLOGY Hct 38.0 % 36.0 - 06/22 [facility] 48.0 [facility] HEMATOLOGY Platelet 295 K/CMM 133 - 450 06/22 [facility] HEMATOLOGY MPV 7.8 fL 7.4 - 10.4 06/22 [facility] HEMATOLOGY MCHC 33.4 g/dL 32.0 - 06/22 [facility] 36.0 [facility] HEMATOLOGY RDW 13.6 % 11.5 - 06/22 [facility] 14.5 [facility] HEMATOLOGY PT 12.9 s 12.0 - 06/22 [facility] 14.7 [facility] HEMATOLOGY INR 0.95 0.85 - 06/22 [facility] 1.17 [facility] HEMATOLOGY PTT 35.1 s 22.9 - 06/22 [facility] 35.8 [facility] URINE AND UA Ketones Negative Negative 06/22 [facility] STOOL mg/dL mg/dL /2016 [facility] URINE AND UA Glucose Negative Negative 06/22 [facility] mg/dL mg/dL [facility] URINE AND UA Bili Negative Negative 06/22 [facility] STOOL [facility] *NA* (06/21/17 10:50 PM) URINE AND UA Protein Negative Negative 06/22 [facility] mg/dL mg/dL /2016 [facility] URINE AND UA pH 6.0 5.0 - 8.0 06/22 [facility] STOOL [facility] URINE AND UA Leuk Est Negative Negative 06/22 [facility] (06/21/17 10:50 PM) URINE AND UA 0.2 EU/dL 0.1 - 1.0 [facility] URINE AND UA Blood Negative Negative 06/22 [facility] STO[facility] (06/21/17 10:50 PM) URINE AND UA Nitrite Negative Negative 06/22 [facility] (06/21/17 10:50 PM) URINE AND UA Turbidity Clear Clear 06/22 [facility] STO[facility] (06/21/17 10:50 PM) URINE AND UA Color Yellow Yellow 06/22 [facility] *NA* (06/21/17 10:50 PM) URINE AND UA Spec Grav 1.015 <=1.030 06/22 [facility] STOOL [facility] URINE AND UA Bacteria Occasional None Seen 06/22 [facility] /HPF /HPF /2016 [facility] URINE AND UA Mucus None Seen None Seen 06/22 [facility] [address] [place] [address] (06/21/17 10:50 PM) URINE AND UA RBC None Seen 0 - 2 06/22 [facility] STOOL [facility] (06/21/17 10:50 PM) URINE AND UA Sq Epi Few /LPF Few /LPF 06/22 [facility] STO[facility] URINE AND UA WBC 0-2 /HPF None Seen 06/22 [facility] ST[facility]OL /HPF /2016 [facility] Brain/Neck Brain/Neck CTA head and neck without contrast 06/21/201706/22 [facility] CTA CTA /2017 - [facility] HISTORY: Right eyelid droop. Read by: Pedro Javed MD Dictated Date/time: 06/22/17 03:06 Electronically Signed by: Pedro Javed MD 06/22/17 03:30 FINAL REPORT PROCEDURE: Axial computed tomographic images obtained of the head and neck after intravenous contrast as per CTA protocol. Coronal and sagittal reconstructed images were performed. IV contrast: 97 mL of Omnipaque 350. DLP: 351 mGy.cm. Comparison: Noncontrast CT head dated 06/21/2017. FINDINGS: CTA neck: Calcified atherosclerotic plaques are noted arch of aorta, subclavian, CCA and brachiocephalic artery close to the aorta. Bilateral CCA enhance normally without abnormal dilation or stenosis. Calcified atherosclerotic plaques are present. Internal carotid artery enhance normally in the neck. Bilateral vertebral arteries are opacified in the neck. Left vertebral artery is dominant while right vertebral artery is smaller in caliber. Hypoplasia of the right vertebral artery is noted the at the level of foramen magnum while it remains smaller in caliber in the neck. Anterior circulation: Bilateral intracranial internal carotid arteries enhance normally. [place] of [place] is unremarkable. Bilateral middle cerebral arteries and anterior cerebral arteries are unremarka ble. No aneurysm formation or dissection is seen.. Posterior circulation: The left vertebral artery is dominant and predominantly forms the basilar artery. Right vertebral artery is attenuated at the level of foramen magnum. The basilar artery is unrema rkable. There are no hemodynamically significant stenosis or aneurysm formation. No vascular malformation is seen. No midline shift, extra-axial fluid collection, hydrocephalus, or mass lesion is present. The visualized mastoid air cells are clear. There is no air- fluid level in the visualized paranasal sinuses. Leonardo varium is intact. Artifact from dental work is noted. No adenopathy seen in the neck. Thyroid gland is unremarkable. Apical lung is unremarkable. Mild degenerative changes are noted in the cervical spine. IMPRESSION: 1. 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 Vertebral artery is smaller in caliber throughout its course. As an artery in the left vertebral arteries are unremarkable. 2. Bilateral carotid arteries and anterior circulation and the brain is unremarkable. There is no aneurysm formation, dissection or hemodynamically significant stenosis. 3. Atherosclerotic calcified plaques in bilateral carotid bulb, visualized arch of aorta and its branches in the apical chest. 4: No intracranial mass, midline shift or acute pathology seen. Mild degenerative changes of the cervical spine noted. Brain wo Brain wo CT head without contrast 06/21/201706/[address] [facility] contrast CT contrast CT /2016 - Hospital HISTORY: Right eyelid droop. Read by: Trevor Longoria MD Dictated Date/time: 06/21/17 23:30 Electronically Signed by: Trevor Longoria MD 06/21/17 23:32 FINAL REPORT PROCEDURE: Multiple axial images from the skull base to the skull vertex were obtained without contrast. Coronal and sagittal reconstructed images were performed. DLP: [id number] No prior exams are available for comparison. FINDINGS: No acute intracranial hemorrhage, midline shift, extra-axial fluid collection, hydrocephalus, or mass lesion is present. No cortical hypodensity to suggest acute infarct is present. The visual ized mastoid air cells are clear. There is no air-fluid level in the visualized paranasal sinuses. Calvarium is intact. IMPRESSION: No acute intracranial abnormality. SL: [id number] Chest 1view Chest 1view PROCEDURE: CHEST SINGLE VIEW 06/21 [facility] DX DX /2016 - Hospital INDICATION: Chest pain Read by: Trevor Longoria MD Dictated Date/time: 06/21/17 19:32 Electronically Signed by: Trevor Longoria MD 06/21/17 19:33 FINAL REPORT COMPARISON: 06/07/2016 FINDINGS: The lungs are clear. The pleura, cardiomediastinal silhouette and bony thorax are normal. No vascular congestion is present. IMPRESSION: No acute cardiopulmonary process. SL: [id number] Thyroid US Thyroid US PROCEDURE: THYROID ULTRASOUND 01/25 [facility] - [facility] INDICATION: Enlarged thyroid Read by: Navi Trinh MD Dictated Date/time: 01/25/17 14:18 Electronically Signed by: Navi Trinh MD 01/25/17 14:20 FINAL REPORT COMPARISON: None. TECHNIQUE: Sonographic evaluation of the thyroid gland is performed using high resolution B-mode and supplemental Doppler imaging. FINDINGS: The right lobe measures 4.5 x 1.7 x 1.6 cm The left lobe measures 4.6 x 1.5 x 1.4 cm The isthmus is 0.22 cm. Small hypoechoic nodule inferior right thyroid lobe measures 0.8 x 0.7 x 0.4 cm. Thyroid otherwise appears within normal limits. IMPRESSION: 1. Small hypoechoic nodule measuring up to 0.8 cm inferior right thyroid lobe. SL: [id number] Inj Inj Patient Name: JERMAINE JONES. 01/18 - [facility] Arthrogram Arthrogram /2016 - [facility] Knee Unilat Knee Unilat : 1955; Age: 61 years y/o; Female. DX DX MR: [id number]. Read by: Cliff Hines MD Dictated Date/time: 01/18/17 16:21 Ordering Physician: Nikko Jimenez MD. Electronically Signed by : Cliff Hines MD 01/18/17 16:33 FINAL REPORT FLUOROSCOPIC GUIDED LEFT KNEE STEROID INJECTION: HISTORY: Left knee osteoarthritis and pain. COMPARISON: None. FINDINGS: Prior to the start of the procedure, the procedure including risks and benefits was explained to the patient. Informed consent was obtained. The patient was placed in a supine position on the fluoroscopic table with the left leg internal rotation. Using fluoroscopic guidance, a skin site overlying the lateral patellofemoral compartment was s elected. The site was prepped and draped in sterile fashion. Approximately 3 to 4 mL of 1% lidocaine was administered for local anesthesia. Under fluoroscopic guidance, a 22-gauge needle was used to acc ess the lateral patellofemoral compartment. Needle entry into the lateral patellofemoral compartment was confirmed with fluoroscopic-guided administration of 0.5 mL of Omnipaque 300. Then a solution con taining 5 cc of 0.5% ropivacaine and 80 mg of Kenalog was administered into the left knee. The needle was then removed and pressure was applied to the skin puncture site. The site was cleaned and a ster ile dressing was applied. The patient tolerated the procedure well. No immediate complication. Discharge instructions were given to the patient prior to patient discharge. IMPRESSION: Successful fluoroscopic guided left knee steroid injection as described. Total fluoroscopic time 0.6 minutes noted. SL: [id number] Knee 3 Knee 3 Views 3 VIEW RIGHT KNEE 01/04 - [facility] Views Bilateral DX /2016 - [facility] Bilateral 3 VIEW LEFT KNEE DX Read by: Aroldo Chavis MD Dictated Date/time: 01/04/17 13:35 INDICATION: Several weeks of bilateral knee pain is worse today. Electronically Signed by: Aroldo Chavis MD 01/04/17 13 :37 FINAL REPORT COMPARISON: None. Right knee: Mild arthritic changes noted medially with small bony spurs. Mild arthritic changes noted patellofemoral space as well. No appreciable narrowing of the medial and lateral compartment. No debbie reciable joint effusion. Bone density normal. Soft tissues normal. Left knee: Mild arthritic change noted medial compartment. Patellofemoral space arthritic change also present. Small joint effusion. No fractures or malalignment. Bone density normal. Soft tissues normal. IMPRESSION: Mild osteoarthritic changes bilaterally fairly symmetric from right to left. Small suprapatellar joint effusion on the left. END REPORT SL: [id number] Ext Lower Ext Lower PROCEDURE: BILATERAL LOWER EXTREMITY VENOUS ULTRASOUND 01/04 - [facility] Venous Venous /2016 - [facility] Doppler Doppler Bilat US Bil[facility] US INDICATION: Bilateral leg pain for 2 weeks, left greater than right. Deep vein thrombosis. Read by: Asaf Brizuela MD Dictated Date/time: 01/04/17 13:18 Electronically Signed by: Asaf Brizuela MD 01/04/17 13:19 FINAL REPORT COMPARISON: None. TECHNIQUE: Sonographic evaluation of the bilateral lower extremity veins was performed using high resolution B-mode, pulse and color Doppler imaging. FINDINGS: Exam limited by patient body habitus. RIGHT: The common femoral, femoral, popliteal and visualized calf veins are patent. Normal venous waveforms. LEFT: The common femoral, femoral, popliteal and visualized calf veins are patent. Normal venous waveforms. IMPRESSION: No deep venous thrombosis. SL: [id number] ELECTROLYTE AGAP 10.6 meq/L 10.0 - 10/16 [facility] 20.0 Hospital ELECTROLYTE eGFR 70 10/16 Result Comment: The eGFR is calculated using the CKD-EPI formula. In most young, healthy individuals the eGFR will be >90 mL/ min/1.73m2. The eGFR declines with age. An eGFR of 60-89 may be normal in [facility] mL/min/1. some populations, particularly the elderly, for whom the CKD-EPI formula has not been extensively validated. Use of the eGFR is not recommended in the following populations: [facility] 3m2 Individuals with unstable creatinine concentrations, including patients and those with serious co-morbid conditions. Patients with extremes in muscle mass or diet. The data above are obtained from the National Kidney Disease Education Program (NKDEP) which additionally recommends that when the eGFR is used in patients with extremes of body mass index for purposes of drug dosing, the eGFR should be multiplied by the estimated BMI. ELECTROLYTE Sodium Lvl 143 meq/L 135 - 145 10/16 [facility] ELECTROLYTE Creatinine 0.90 mg/dL 0.50 - 10/16 [facility] 1.40 [facility] ELECTROLYTE Chloride Lvl 102 meq/L 95 - 109 10/16 [facility] ELECTROLYTE Potassium 3.6 meq/L 3.5 - 5.1 10/16 [facility] Lvl [facility] ELECTROLYTE Calcium Lvl 8.4 mg/dL 8.5 - 10.5 10/16 [facility] ELECTROLYTE CO2 34 meq/L 24 - 32 10/16 [facility] ELECTROLYTE Glucose Lvl 108 mg/dL 70 - 99 10/16 [facility] ELECTROLYTE BUN 6 mg/dL 7 - 22 10/16 [facility] HEMATOLOGY Lymphocytes 2.8 K/CMM 1.0 - 5.5 10/16 # Hospital HEMATOLOGY Monocytes 10.0 % 2.0 - 12.0 10/16 [facility] HEMATOLOGY Eosinophils 0.4 % 0.0 - 4.0 10/16 [facility] HEMATOLOGY Basophils 0.5 % 0.0 - 1.0 10/16 [facility] HEMATOLOGY Segs-Bands # 5.3 K/CMM 1.5 - 8.1 10/16 [facility] HEMATOLOGY Monocytes # 0.9 K/CMM 0.0 - 0.8 10/16 [facility] HEMATOLOGY Basophils # 0.1 K/CMM 0.0 - 0.2 10/16 [facility] HEMATOLOGY Lymphocytes 31.0 % 20.0 - 10/16y 40.0 Hospital HEMATOLOGY Segs 58.1 % 45.0 - 10/16 [facility] 75.0 [facility] HEMATOLOGY MCHC 32.4 g/dL 32.0 - 10/16 [facility] 36.0 [facility] HEMATOLOGY RDW 13.8 % 11.5 - 10/16 [facility] 14.5 [facility] HEMATOLOGY MCV 86.4 fL 80.0 - 10/16 [facility] 98.0 [facility] HEMATOLOGY MCH 28.0 pg 27.0 - 10/16 [facility] 31.0 [facility] HEMATOLOGY Platelet 255 K/CMM 133 - 450 10/16 [facility] HEMATOLOGY MPV 7.7 fL 7.4 - 10.4 10/16 Hospital HEMATOLOGY WBC 9.1 K/CMM 3.7 - 10.4 10/16 [facility] HEMATOLOGY RBC 3.47 M/CMM 4.20 - 10/16 [facility] 5.40 [facility] HEMATOLOGY Hgb 9.7 g/dL 12.0 - 10/16 [facility] 16.0 [facility] HEMATOLOGY Hct 30.0 % 36.0 - 10/16 [facility] 48.0 [facility] CHEM PANEL Lipase Lvl 71 unit/L 73 - 393 10/15 Hospital CHEM PANEL eGFR 75 10/15 Result Comment: The eGFR is calculated using the CKD-EPI formula. In most young, healthy individuals the eGFR will be >90 mL/ min/1.73m2. The eGFR declines with age. An eGFR of 60-89 may be normal in mL/min/1. some populations, particularly the elderly, for whom the CKD-EPI formula has not been extensively validated. Use of the eGFR is not recommended in the following populations: [facility] 3m2 Individuals with unstable creatinine concentrations, including patients and those with serious co-morbid conditions. Patients with extremes in muscle mass or diet. The data above are obtained from the National Kidney Disease Education Program (NKDEP) which additionally recommends that when the eGFR is used in patients with extremes of body mass index for purposes of drug dosing, the eGFR should be multiplied by the estimated BMI. CHEM PANEL Bili Total 0.4 mg/dL 0.2 - 1.3 10/15 Hospital CHEM PANEL ALT 18 unit/L 0 - 65 10/15 Hospital CHEM PANEL AST 18 unit/L 0 - 37 10/15 [facility] CHEM PANEL Alk Phos 108 unit/L 39 - 136 10/15 [facility] CHEM PANEL Albumin Lvl 2.9 g/dL 3.5 - 5.0 10/15 [facility] CHEM PANEL Creatinine 0.85 mg/dL 0.50 - 12 [facility] 1[facility]40 [facility] CHEM PANEL BUN 8 mg/dL 7 - 22 10/15 [facility] CHEM PANEL Glucose Lvl 106 mg/dL 70 - 99 10/15 [facility] CHEM PANEL Total 7.0 g/dL 6.4 - 8.4 10/15 [facility] CHEM PANEL Calcium Lvl 9.1 mg/dL 8.5 - 10.5 10/15 [facility] CHEM PANEL CO2 35 meq/L 24 - 32 10/15 [facility] CHEM PANEL Potassium 3.9 meq/L 3.5 - 5.1 10/15 l [facility] CHEM PANEL Chloride Lvl 100 meq/L 95 - 109 10/15 [facility] CHEM PANEL Sodium Lvl 141 meq/L 135 - 145 10/15 [facility] CHEM PANEL A/G Ratio 0.7 0.7 - 1.6 10/15 [facility] CHEM PANEL Globulin 4.1 g/dL 2.7 - 4.2 10/15 [facility] CHEM PANEL AGAP 9.9 meq/L 10.0 - 10/15 [facility] 20.0 [facility] CHEM PANEL B/C Ratio 9 6 - 25 10/15 [facility] HEMATOLOGY Platelet 287 K/CMM 133 - 450 10/15 [facility] HEMATOLOGY RDW 13.9 % 11.5 - 10/15 [facility] 14.5 [facility] HEMATOLOGY MPV 7.8 fL 7.4 - 10.4 10/15 [facility] HEMATOLOGY MCV 84.6 fL 80.0 - 10/15 [facility] 98.0 [facility] HEMATOLOGY MCHC 33.6 g/dL 32.0 - 10/15 [facility] 36.0 [facility] HEMATOLOGY MCH 28.4 pg 27.0 - 10/15 [facility] 31.0 [facility] HEMATOLOGY WBC 9.9 K/CMM 3.7 - 10.4 10/15 Hospital HEMATOLOGY Hct 31.4 % 36.0 - 10/15 [facility] 48.0 [facility] HEMATOLOGY Hgb 10.5 g/dL 12.0 - 10/15 [facility] 16.0 [facility] HEMATOLOGY RBC 3.71 M/CMM 4.20 - 12 [facility] 5.40 /2015 [facility] HEMATOLOGY Lymphocytes 2.4 K/CMM 1.0 - 5.5 12 [facility] # /2015 [facility] HEMATOLOGY Segs-Bands # 6.7 K/CMM 1.5 - 8.1 10/15 [facility] HEMATOLOGY Monocytes 7.8 % 2.0 - 12.0 12 [facility] HEMATOLOGY Basophils 0.3 % 0.0 - 1.0 10/15 [facility] HEMATOLOGY Eosinophils 0.4 % 0.0 - 4.0 10/15 [facility] HEMATOLOGY Monocytes # 0.8 K/CMM 0.0 - 0.8 10/15 [facility] HEMATOLOGY Lymphocytes 23.7 % 20.0 - 10/15 [facility] 40.0 [facility] HEMATOLOGY Segs 67.8 % 45.0 - 10/15 [facility] 75.0 [facility] CHEM PANEL eGFR 83 10/13 Result Comment: The eGFR is calculated using the CKD-EPI formula. In most young, healthy individuals the eGFR will be >90 mL/ min/1.73m2. The eGFR declines with age. An eGFR of 60-89 may be normal in mL/min/1. some populations, particularly the elderly, for whom the CKD-EPI formula has not been extensively validated. Use of the eGFR is not recommended in the following populations: [facility] 3m2 Individuals with unstable creatinine concentrations, including patients and those with serious co-morbid conditions. Patients with extremes in muscle mass or diet. The data above are obtained from the National Kidney Disease Education Program (NKDEP) which additionally recommends that when the eGFR is used in patients with extremes of body mass index for purposes of drug dosing, the eGFR should be multiplied by the estimated BMI. CHEM PANEL Bili Total 0.4 mg/dL 0.2 - 1.3 10/13 [facility] CHEM PANEL ALT 18 unit/L 0 - 65 10/13 [facility] CHEM PANEL AST 14 unit/L 0 - 37 10/13 [facility] CHEM PANEL Alk Phos 119 unit/L 39 - 136 10/13 [facility] CHEM PANEL CO2 33 meq/L 24 - 32 10/13 [facility] CHEM PANEL Chloride Lvl 104 meq/L 95 - 109 10/13 [facility] CHEM PANEL Potassium 3.8 meq/L 3.5 - 5.1 10/13 [facility] CHEM PANEL Sodium Lvl 143 meq/L 135 - 145 10/13 [facility] CHEM PANEL Albumin Lvl 3.1 g/dL 3.5 - 5.0 10/13 [facility] CHEM PANEL Total 7.2 g/dL 6.4 - 8.4 10/13 [facility] CHEM PANEL Calcium Lvl 9.0 mg/dL 8.5 - 10.5 10/13 [facility] CHEM PANEL Creatinine 0.78 mg/dL 0.50 - 10/13 [facility] 1[facility]40 [facility] CHEM PANEL BUN 8 mg/dL 7 - 22 10/13 [facility] CHEM PANEL Glucose Lvl 103 mg/dL 70 - 99 10/13 [facility] CHEM PANEL AGAP 9.8 meq/L 10.0 - 10/13 [facility] 20.0 [facility] CHEM PANEL B/C Ratio 10 6 - 25 10/13 [facility] CHEM PANEL Globulin 4.1 g/dL 2.7 - 4.2 10/13 [facility] CHEM PANEL A/G Ratio 0.8 0.7 - 1.6 10/13 [facility] CHEM PANEL Lipase Lvl 152 unit/L 73 - 393 10/13 [facility] HEMATOLOGY MPV 7.6 fL 7.4 - 10.4 10/13 [facility] HEMATOLOGY MCHC 32.8 g/dL 32.0 - 10/13 [facility] 36.0 [facility] HEMATOLOGY RDW 14.3 % 11.5 - 10/13 [facility] 14.5 [facility] HEMATOLOGY Platelet 310 K/CMM 133 - 450 10/13 [facility] HEMATOLOGY MCH 27.6 pg 27.0 - 10/13 [facility] 31.0 [facility] HEMATOLOGY WBC 10.2 K/CMM 3.7 - 10.4 10/13 [facility] HEMATOLOGY MCV 84.3 fL 80.0 - 10/13 [facility] 98.0 /2015 [facility] HEMATOLOGY RBC 4.28 M/CMM 4.20 - 10/13 [facility] 5.40 /2015 [facility] HEMATOLOGY Hgb 11.8 g/dL 12.0 - 10/13 [facility] 16.0 /2015 [facility] HEMATOLOGY Hct 36.1 % 36.0 - 10/13 [facility] 48.0 /2015 [facility] HEMATOLOGY Eosinophils 0.2 K/CMM 0.0 - 0.5 10/13 [facility] # /2016 [facility] HEMATOLOGY Basophils 1.0 % 0.0 - 1.0 10/13 [facility] /2015 [facility] HEMATOLOGY Basophils # 0.1 K/CMM 0.0 - 0.2 10/13 [facility] /2015 [facility] HEMATOLOGY Segs-Bands # 7.7 K/CMM 1.5 - 8.1 10/13 [facility] /2015 [facility] HEMATOLOGY Monocytes # 0.7 K/CMM 0.0 - 0.8 10/13 [facility] /2015 [facility] HEMATOLOGY Lymphocytes 1.6 K/CMM 1.0 - 5.5 10/13 [facility] # /2016 [facility] HEMATOLOGY Eosinophils 1.7 % 0.0 - 4.0 10/13 [facility] /2015 [facility] HEMATOLOGY Lymphocytes 15.3 % 20.0 - 10/13 [facility] 40.0 [facility] HEMATOLOGY Monocytes 6.5 % 2.0 - 12.0 10/13 [facility] /2015 [facility] HEMATOLOGY Segs 75.5 % 45.0 - 10/13 [facility] 75.0 [facility] URINE AND UA Ketones Negative Negative 10/13 [facility] STOOL [facility] *NA* (10/13/16 12:27 PM) URINE AND UA Turbidity Clear Clear 10/13 [facility]OOL /2015 [facility] (10/13/16 12:27 PM) URINE AND UA Spec Grav 1.015 <=1.030 10/13 [facility] STOOL [facility] URINE AND UA Color Yellow Yellow 10/13 [place] STOOL [facility] *NA* (10/13/16 12:27 PM) URINE AND UA 0.2 EU/dL 0.1 - 1.0 10/13 [facility]OOL Urobilinogen /2015 [facility] URINE AND UA Blood Negative Negative 10/13 [facility]OOL /2015 [facility] (10/13/16 12:27 PM) URINE AND UA Nitrite Negative Negative 10/13 [facility] /2015 [facility] (10/13/16 12:27 PM) URINE AND UA Leuk Est Negative Negative 10/13 [facility] /2015 [facility] (10/13/16 12:27 PM) URINE AND UA pH 6.0 5.0 - 8.0 10/[address] URINE AND UA Protein Negative Negative 10/13 [facility] /2015 [facility] (10/13/16 12:27 PM) URINE AND UA Bili Moderate Negative 10/[address] *ABN* (10/13/16 12:27 PM) URINE AND UA Glucose Negative Negative 10/13 [facility] /2015 [facility] (10/13/16 12:27 PM) URINE AND UA RBC 0-2 /HPF 0 - 2 10/13 [facility] [address] [place] [address] URINE AND UA Mucus None Seen None Seen 10/13 [facility] /2015 [facility] (10/13/16 12:27 PM) URINE AND UA Bacteria Occasional None Seen 10/13 [facility] STOOL /HPF /HPF /2015 [facility] URINE AND UA WBC 0-2 /HPF None Seen 10/13 [facility] /HPF /[address] [place] [address] URINE AND UA Sq Epi Moderate Few /LPF 10/13 [facility] STOOL /LPF /2015 [facility] ED ED PROCEDURE: CT ABDOMEN AND PELVIS WITH CONTRAST 10/13 - [facility] Abdomen/Pel Abdomen/Pelv /2015 [facility] vis IV is IV contrast contrast only CT only CT Clinical Indication: Abdominal pain predominantly left lower quadrant.. Read by: Aroldo Chavis MD Dictated Date/time: 10/13/16 14:32 Comparison: 06/07/2016 CT chest abdomen pelvis. Electronically Signed by: Aroldo Chavis MD 10/13/16 14:38 FINAL REPORT TECHNIQUE: Helical imaging was performed diaphragm through the symphysis with multiplanar reformations obtained. IV CONTRAST: 96 cc Omnipaque 300. GI CONTRAST: None. DLP: 1285 mGy-cm FINDINGS: LOWER CHEST: The lung bases are clear. LIVER: No focal liver lesions. Liver size normal. BILIARY TREE: Normal. No bile duct dilatation. GALLBLADDER: Normal. PANCREAS: Normal. SPLEEN: Normal. ADRENALS: Normal. KIDNEYS: Normal. No stones, masses or hydronephrosis evident. BOWEL: There are scattered colonic diverticula. There is mild wall thickening of the distal sigmoid colon with associated pericolonic inflammatory change. No extraluminal air densities no abscess. Large and small bowel otherwise normal. APPENDIX: Not identified. PERITONEUM: There are several very small mesenteric lymph nodes in close proximity to the acute distal sigmoid diverticulitis. No free peritoneal air collections or fluid collections. RETROPERITONEUM: There are several very small, 3 to 4 mm diameter or less retroperitoneal nodes. These are nonspecific in light of their small size. Abdominal aorta and IVC are normal. PELVIS: Urinary bladder is almost empty but otherwise normal in appearance. No pelvic mass. Calcified pelvic phleboliths are present. MUSCULOSKELETAL: The skeleton is intact. IMPRESSION: 1. Acute diverticulitis distal sigmoid colon. No abscess or free air. A few adjacent small reactive lymph nodes. 2. Nonspecific very small retroperitoneal nodes. These are incidental in light of their small size. END IMPRESSION SL: [id number] CARDIAC Troponin-I 0.02 ng/mL 0.00 - 06/08 [facility] 0.40 [facility] LIPIDS HDL 50 mg/dL >=61 mg/dL 06/08 [facility] LIPIDS Trig 109 mg/dL <=149 06/08 [facility] mg/dL /2015 [facility] LIPIDS Chol 153 mg/dL <=199 06/08 [facility] mg/dL /2015 [facility] LIPIDS VLDL 22 06/08 [facility] /2016 [facility] LIPIDS CHD Risk 3.06 3.90 - 06/08 [facility] 5.80 /2015 [facility] LIPIDS LDL 81 mg/dL <=99 mg/dL 06/08 [facility] (Calculated) [facility] CARDIAC Troponin-I null 0.00 - 06/08 [facility] ENZYMES 0.40 2016 [facility] CARDIAC CK MB Index 1.6 0.0 - 2.5 06/07 [facility]ZYMES /2015 Hospital CARDIAC CK MB 1.8 ng/mL 0.5 - 3.6 06/07 [facility] ENZYMES /2016 Hospital CARDIAC Troponin-I null 0.00 - 06/07 [facility] ENZYMES 0.40 2016 [facility] CARDIAC Total CK 112 unit/L 12 - 191 06/07 [facility] CHEM PANEL eGFR 63 06/07 Result Comment: The eGFR is calculated using the CKD-EPI formula. In most young, healthy individuals the eGFR will be >90 mL/ min/1.73m2. The eGFR declines with age. An eGFR of 60-89 may be normal in mL/min/1.7 /2015 some populations, particularly the elderly, for whom the CKD-EPI formula has not been extensively validated. Use of the eGFR is not recommended in the following populations: [facility] 3m2 Individuals with unstable creatinine concentrations, including patients and those with serious co-morbid conditions. Patients with extremes in muscle mass or diet. The data above are obtained from the National Kidney Disease Education Program (NKDEP) which additionally recommends that when the eGFR is used in patients with extremes of body mass index for purposes of drug dosing, the eGFR should be multiplied by the estimated BMI. CHEM PANEL Globulin 3.7 g/dL 2.7 - 4.2 06/07 [facility] CHEM PANEL A/G Ratio 1.0 0.7 - 1.6 06/07 Hospital CHEM PANEL B/C Ratio 16 6 - 25 06/07 Hospital CHEM PANEL Alk Phos 134 unit/L 39 - 136 06/07 Hospital CHEM PANEL Bili Total 0.4 mg/dL 0.2 - 1.3 06/07 Hospital CHEM PANEL AGAP 7.7 meq/L 10.0 - 06/07 20.0 Hospital CHEM PANEL Creatinine 0.98 mg/dL 0.50 - 06/07 Lvl 1.40 /2015 Hospital CHEM PANEL Potassium 3.7 meq/L 3.5 - 5.1 06/07 L[facility] CHEM PANEL Sodium Lvl 138 meq/L 135 - 145 06/07 Hospital CHEM PANEL Glucose Lvl 84 mg/dL 70 - 99 06/07 [facility] CHEM PANEL BUN 16 mg/dL 7 - 22 06/07 [facility] CHEM PANEL Total 7.4 g/dL 6.4 - 8.4 06/07 [facility] CHEM PANEL Albumin Lvl 3.7 g/dL 3.5 - 5.0 06/07 [facility] CHEM PANEL AST 17 unit/L 0 - 37 06/07 [facility] CHEM PANEL ALT 23 unit/L 0 - 65 06/07 [facility] CHEM PANEL Chloride Lvl 101 meq/L 95 - 109 06/07 [facility] CHEM PANEL Calcium Lvl 8.8 mg/dL 8.5 - 10.5 06/07 [facility] CHEM PANEL CO2 33 meq/L 24 - 32 06/07 [facility] HEMATOLOGY Segs 57.1 % 45.0 - 06/07 [facility] 75.0 /2015 [facility] HEMATOLOGY Lymphocytes 31.2 % 20.0 - 08 [facility] 40.0 [facility] HEMATOLOGY Monocytes 8.8 % 2.0 - 12.0 08 [facility] HEMATOLOGY Eosinophils 2.2 % 0.0 - 4.0 06/07 [facility] HEMATOLOGY Segs-Bands # 4.3 K/CMM 1.5 - 8.1 06/07 [facility] HEMATOLOGY Basophils 0.7 % 0.0 - 1.0 06/07 [facility] HEMATOLOGY Eosinophils 0.2 K/CMM 0.0 - 0.5 06/07 [facility] # /2015 [facility] HEMATOLOGY Lymphocytes 2.4 K/CMM 1.0 - 5.5 06/07 [facility] # /2015 [facility] HEMATOLOGY Monocytes # 0.7 K/CMM 0.0 - 0.8 06/07 [facility] HEMATOLOGY Basophils # 0.1 K/CMM 0.0 - 0.2 06/07 [facility] HEMATOLOGY PT 13.0 s 12.0 - 06/07 [facility] 14.7 [facility] HEMATOLOGY INR 0.95 0.85 - 06/07 [facility] 1.17 [facility] HEMATOLOGY PTT 34.9 s 22.9 - 06/07 [facility] 35.8 [facility] HEMATOLOGY MPV 8.3 fL 7.4 - 10.4 06/07 [facility] HEMATOLOGY Platelet 305 K/CMM 133 - 450 06/07 [facility] HEMATOLOGY MCH 28.6 pg 27.0 - 06/07 [facility] 31.0 [facility] HEMATOLOGY MCHC 34.1 g/dL 32.0 - 06/07 [facility] 36.0 [facility] HEMATOLOGY RDW 13.6 % 11.5 - 06/07 [facility] 14.5 [facility] HEMATOLOGY Hct 34.8 % 36.0 - 06/07 [facility] 48.0 /2015 [facility] HEMATOLOGY Hgb 11.9 g/dL 12.0 - 06/07 [facility] 16.0 [facility] HEMATOLOGY MCV 83.7 fL 80.0 - 06/07 [facility] 98.0 [facility] HEMATOLOGY RBC 4.16 M/CMM 4.20 - 06/07 [facility] 5.40 /2015 [facility] HEMATOLOGY WBC 7.6 K/CMM 3.7 - 10.4 06/07 [facility] /2015 [facility] HEMATOLOGY D-Dimer 0.34 ug/mL 06/07 [facility] FEU /2015 [facility] Chest/Abd/P Chest/Abd/Pe CT angiogram chest 06/07 - [facility] latricia CTA lvis CTA /2015 - [facility] CT angiogram abdomen CT angiogram pelvis Read by: Navi Trinh MD Dictated Date/time: 06/07/16 17:08 Electronically Signed by: Navi Trinh MD 06/07/16 17:19 FINAL REPORT HISTORY: Chest pain. Back pain. Shortness of breath. COMPARISON: None. TECHNIQUE: Following administration of Omnipaque 300 100 mL IV, CT angiogram protocol of the chest, CT angiogram protocol of the abdomen, and CT angiogram protocol of the pelvis were performed. This in cluded noncontrast images from the thoracic inlet to the upper abdomen. Source images and reconstructions including MIP images acquired. FINDINGS: CTA chest/abdomen/pelvis: The thoracic and abdominal aorta appear within normal limits demonstrating minimal atherosclerotic calcifications and no aneurysm or dissection. The bilateral iliac arteries widely patent and unremarkable. Branches of the aortic arch appear within normal limits. The celiac artery , SMA, bilateral main renal arteries, small accessory left renal artery and JORGE appear within normal limits. A few tiny noncalcified nodular changes seen bilaterally with the largest measuring 2.5 mm within the left lower lobe (series 7 image 60). A 3 mm calcified nodule seen within the right upper lobe. No consolidation, effusion, or pneumothorax seen. Pulmonary arteries appear within normal limits. Moderate coronary artery calcifications present. Heart size appears upper limits normal. No mediastinal or hilar adenopathy seen. The contracted gallbladder, liver, spleen, pancreas, adrenal glands and kidneys appear within normal limits. No inflammatory changes gastrointestinal tract present. Sigmoid diverticulosis evident. No free air or free fluid seen. Urinary bladder unremarkable. Uterus appears within normal limits. Surgical clips within the pelvis evident. No retroperitoneal or pelvic adenopathy seen. No acute osseous abnormality identified. Degenerative changes present. IMPRESSION: 1. Thoracic and abdominal aorta appear within normal limits. No aneurysm or dissection seen. 2. Prominent coronary artery calcifications. 3. Sigmoid diverticulosis. 4. There are several bilateral indeterminate nodular changes measuring up to 2.5 mm. Consider 1 year follow-up imaging to evaluate for change/stability. SL: 200 Chest 1view Chest 1view CHEST FRONTAL VIEW. 06/07/2016 1615 hours 06/07 - [facility] DX DX /2015 - Hospital HISTORY: Chest pain and back pain. Shortness of breath. Read by: Navi Trinh MD Dictated Date/time: 06/07/16 16:22 Electronically Signed by: Navi Trinh MD 06/07/16 16:30 FINAL REPORT COMPARISON: None available FINDINGS: Heart size is borderline. Pulmonary vasculature appears within normal limits. No focal infiltrates or effusions identified. No acute osseous abnormality identified. IMPRESSION: 1. No evidence for acute cardiopulmonary disease. SL: 200 Vital Signs Vital Sign Value Date Comments Source Weight 123.977 12/11/2017 [facility] Heart Rate 93 12/11/2017 [facility] Systolic (mm Hg) 176 12/11/2017 [facility] Diastolic (mm Hg) 91 12/11/2017 [facility] Heart Rate 81 11/27/2017 [facility] Respitory Rate 16 11/27/2017 [facility] BMI Calculated 46.76 11/27/2017 [facility] Systolic (mm Hg) 133 11/27/2017 [facility] Diastolic (mm Hg) 88 11/27/2017 [facility] Height 160.02 cm 11/27/2017 [facility] Temperature Oral (F) 99.1 F 11/27/2017 [facility] Weight 119.744 11/27/2017 [facility] BMI Calculated 46.55 09/19/2017 [facility] Height 160.02 cm 09/19/2017 [facility] Weight 119.205 09/19/2017 [facility] Heart Rate 86 09/19/2017 [facility] Systolic (mm Hg) 105 09/19/2017 [facility] Diastolic (mm Hg) 75 09/19/2017 [facility] BMI Calculated 45.62 06/30/2017 [facility] Temperature Oral (F) 97.5 F 06/30/2017 [facility] Heart Rate 73 06/30/2017 [facility] Respitory Rate 18 06/30/2017 [facility] Systolic (mm Hg) 129 06/30/2017 [facility] Diastolic (mm Hg) 75 06/30/2017 [facility] Height 160.02 cm 06/30/2017 [facility] Weight 116.818 06/30/2017 [facility] Heart Rate 64 06/22/2017 [facility] Hospital Respitory Rate 16 06/22/2017 [facility] Hospital Systolic (mm Hg) 161 06/22/2017 [facility] Hospital Diastolic (mm Hg) 83 06/22/2017 [facility] Temperature Oral (F) 98.4 F 06/22/2017 [facility] Heart Rate 58 06/22/2017 [facility] Hospital Systolic (mm Hg) 163 06/22/2017 [facility] Hospital Diastolic (mm Hg) 88 06/22/2017 [facility] Respitory Rate 16 06/22/2017 [facility] Hospital Systolic (mm Hg) 177 06/22/2017 [facility] Hospital Diastolic (mm Hg) 82 06/22/2017 [facility] Heart Rate 59 06/22/2017 [facility] Respitory Rate 16 06/22/2017 [facility] Weight 118.636 06/22/2017 [facility] BMI Calculated 46.33 06/22/2017 [facility] Height 160.02 cm 06/22/2017 [facility] Temperature Oral (F) 98.4 F 06/22/2017 [facility] Weight 119.091 06/21/2017 [facility] BMI Calculated 46.51 06/21/2017 [facility] Height 160.02 cm 06/21/2017 [facility] Respitory Rate 18 06/21/2017 [facility] Heart Rate 89 06/21/2017 [facility] Temperature Oral (F) 98.1 F 06/21/2017 [facility] Hospital Systolic (mm Hg) 161 06/21/2017 [facility] Hospital Diastolic (mm Hg) 94 06/21/2017 [facility] Weight 112.727 01/31/2017 [facility] BMI Calculated 44.02 01/31/2017 [facility] Heart Rate 87 01/31/2017 [facility] Temperature Oral (F) 97.8 F 01/31/2017 [facility] Respitory Rate 20 01/31/2017 [facility] Height 160.02 cm 01/31/2017 [facility] Systolic (mm Hg) 128 01/31/2017 [facility] Diastolic (mm Hg) 85 01/31/2017 [facility] Temperature Oral (F) 97.9 F 01/04/2017 [facility] Hospital Heart Rate 59 01/04/2017 [facility] Hospital Respitory Rate 18 01/04/2017 [facility] Hospital Systolic (mm Hg) 144 01/04/2017 [facility] Hospital Diastolic (mm Hg) 61 01/04/2017 [facility] Weight 119.545 01/04/2017 [facility] BMI Calculated 46.69 01/04/2017 [facility] Height 160.02 cm 01/04/2017 [facility] Heart Rate 69 01/04/2017 [facility] Respitory Rate 18 01/04/2017 [facility] Temperature Oral (F) 97.5 F 01/04/2017 [facility] Hospital Systolic (mm Hg) 152 01/04/2017 [facility] Hospital Diastolic (mm Hg) 78 01/04/2017 [facility] Systolic (mm Hg) 162 10/17/2016 [facility] Hospital Diastolic (mm Hg) 88 10/17/2016 [facility] Heart Rate 79 10/17/2016 [facility] Hospital Respitory Rate 18 10/17/2016 [facility] Hospital Systolic (mm Hg) 174 10/17/2016 [facility] Hospital Diastolic (mm Hg) 103 10/17/2016 [facility] Heart Rate 75 10/17/2016 [facility] Temperature Oral (F) 98.3 F 10/17/2016 [facility] Heart Rate 75 10/17/2016 [facility] Temperature Oral (F) 98.2 F 10/17/2016 [facility] Hospital Systolic (mm Hg) 182 10/17/2016 [facility] Hospital Diastolic (mm Hg) 107 10/17/2016 [facility] Hospital Respitory Rate 18 10/17/2016 [facility] Temperature Oral (F) 97.9 F 10/17/2016 [facility] Respitory Rate 16 10/17/2016 [facility] BMI Calculated 46.15 10/15/2016 [facility] Height 160.02 cm 10/15/2016 [facility] Weight 118.182 10/15/2016 [facility] BMI Calculated 45.98 10/15/2016 [facility] Weight 117.727 10/15/2016 [facility] Height 160.02 cm 10/15/2016 [facility] Respitory Rate 18 10/13/2016 [facility] Heart Rate 70 10/13/2016 [facility] Temperature Oral (F) 98.0 F 10/13/2016 [facility] Systolic (mm Hg) 134 10/13/2016 [facility] Diastolic (mm Hg) 88 10/13/2016 [facility] Respitory Rate 18 10/13/2016 [facility] Heart Rate 73 10/13/2016 [facility] Systolic (mm Hg) 164 10/13/2016 [facility] Diastolic (mm Hg) 94 10/13/2016 [facility] Height 160.02 cm 10/13/2016 [facility] Temperature Oral (F) 98.1 F 10/13/2016 [facility] BMI Calculated 45.99 10/13/2016 [facility] Weight 117.773 10/13/2016 [facility] BMI Calculated 45.98 09/06/2016 [facility] Weight 117.727 09/06/2016 [facility] Height 160.02 cm 09/06/2016 [facility] Temperature Oral (F) 98.3 F 09/06/2016 [facility] Respitory Rate 20 09/06/2016 [facility] Systolic (mm Hg) 122 09/06/2016 [facility] Diastolic (mm Hg) 88 09/06/2016 [facility] Heart Rate 84 09/06/2016 [facility] Weight 112.386 06/14/2016 [facility] BMI Calculated 43.89 06/14/2016 [facility] Height 160.02 cm 06/14/2016 [facility] Temperature Oral (F) 97.5 F 06/14/2016 [facility] Respitory Rate 20 06/14/2016 [facility] Heart Rate 77 06/14/2016 [facility] Systolic (mm Hg) 103 06/14/2016 [facility] Diastolic (mm Hg) 65 06/14/2016 [facility] Weight 116.591 06/08/2016 [facility] Heart Rate 58 06/08/2016 [facility] Temperature Oral (F) 97.6 F 06/08/2016 [facility] Systolic (mm Hg) 126 06/08/2016 [facility] Diastolic (mm Hg) 68 06/08/2016 [facility] Respitory Rate 20 06/08/2016 [facility] Systolic (mm Hg) 130 06/08/2016 [facility] Diastolic (mm Hg) 77 06/08/2016 [facility] Heart Rate 62 06/08/2016 [facility] Respitory Rate 20 06/08/2016 [facility] Temperature Oral (F) 97.5 F 06/08/2016 [facility] Temperature Oral (F) 98.0 F 06/08/2016 [facility] Heart Rate 50 06/08/2016 [facility] Systolic (mm Hg) 148 06/08/2016 [facility] Diastolic (mm Hg) 85 06/08/2016 [facility] Respitory Rate 20 06/08/2016 [facility] Height 160.02 cm 06/08/2016 [facility] Weight 116.364 06/08/2016 [facility] BMI Calculated 45.44 06/08/2016 [facility] Weight 100 06/07/2016 [facility] Height 172.72 cm 06/07/2016 [facility] BMI Calculated 33.52 06/07/2016 [facility] Encounters Location Location Encounter Encounter Reason Attending ADM DC Status Source Details Type Number For Provider Date Date Visit [facility] Observation [id number] Nathaniel castro 06/07 06/08 [facility] 0 Jenny [facility] Outpatient [id number] Shanti 06/14 06/15 [facility] 1 Medical Cardiology [facility] Outpatient [id number] Shanti 09/06 09/07 [facility] 2 Medical Cardiology [facility] Outpatient [id number] Shanti 09/21 09/21 [facility] 5 Rehab [facility] Emergency [id number] Aditya 10/13 10/13 [facility] 6 Neftali [facility] Inpatient [id number] Ana 10/15 10/17 [facility] 7 Edokpayi [facility] Emergency [id number] Jason 01/04 01/04 [id number] Nikko 01/18 01/19 [facility] Out[facility] Di[facility] [id number] Ami Foster 01/25 01/26 [facility]patient [id number] Shanti 01/31 02/01 [facility] 9 [facility] Emergency [id number] Imran Adal 06/21 06/22 [facility] [place] [facility] Emergency [id number] Cat 06/22 06/22 [facility] Omar 2 Foy [facility] Outpatient [id number] Shanti 06/30 07/01 [facility] 0 [facility] Cardiology [facility] Outpatient [id number] Imran Adal 07/17 07/18 [facility] Outpatient [id number] ANDIE 09/19 [facility] 1 [place] [facility] [id number] 09/19 09/20 [facility] Phone [id number] 09/20 09/22 [facility] Phone [id number] 10/26 10/28 [facility] Outpatient [id number] Shanti 11/27 11/28 [facility] 7 [facility] Cardiology [place] [facility] Outpt Diag [id number] Andie 12/06 12/07 [facility]patient [id number] ANDIE 12/11 [facility] 2 [facility] Outpatient [id number] Imran Adal 12/11 12/12 [facility] Outpatient [id number] ANDIE 05/25 [facility] 3 [facility] Outpatient [id number] ANDIE 08/20 [facility] 4 [facility] Procedures Procedure Code Date Perfomer Comments Source [facility] [id number] [facility] [id number] [facility] Neuro catheterization Gastric bypass [id number] [facility] Appendectomy [id number] [facility] Cardiac [id number] [facility] Gastric bypass [id number] [facility] Appendectomy [id number] [facility] Cardiac [id number] [facility] Gastric bypass [id number] [facility] Appendectomy [id number] [facility] Cardiac [id number] [facility] Gastric bypass [id number] [facility] Appendectomy [id number] [facility] Cardiac [id number] [facility] catheterization Gastric bypass [id number] [facility]
--- OUTSIDE RECORDS SUMMARY | 2018-06-24 08:55 | XMS REPORT | Summary of Care ---
:1955 Author Organization [facility] Address [address] [place] [address]- Encounter HQ Lia_arthur(FIN) [id number] Date(s): 09/19/17 - 09/19/17 [facility] [address] [place] [address] [phone] Discharge Disposition: Home or Self Care Vital Signs Most recent to oldest [Reference Range]: 1 Height 160.02 cm (09/19/17 1:38 PM) Blood Pressure [90-140/60-90 mmHg] 105/75 mmHg (09/19/17 1:38 PM) Peripheral Pulse Rate [60-100 bpm] 86 bpm (09/19/17 1:38 PM) Weight 119.205 kg (09/19/17 1:38 PM) Body Mass Index 46.55 m2 (09/19/17 1:38 PM) Problem List Condition Effective Dates Status Health Status Informant Cardiac catheterization(Confirmed) Active Hyperlipemia(Confirmed) Active Hypertension(Confirmed) Active DE (myocardial Active infarction)(Confirmed) Morbid obesity(Confirmed) Active OA (osteoarthritis)(Confirmed) Resolved Stent(Confirmed) Active Allergies, Adverse Reactions, Alerts Substance Reaction Severity Status penicillins Active tetanus toxoid Active Medications pyridostigmine 60 mg oral tablet 60 mg=1 tab, PO, TID, # 90 tab, 2 Refill(s), Pharmacy: [id number] Start Date: 09/19/17 Status: Orderedtizanidine 4 mg oral tablet 4 mg=1 tab, PO, Bedtime, # 30 tab, 1 Refill(s), Pharmacy: [facility] [id number] Start Date: 09/20/17 Stop Date: 1/28/18 Status: Ordered Results No data available for this section Immunizations No data available for this section Procedures Procedure Date Related Diagnosis Body Site Appendectomy Cardiac catheterization Gastric bypass Social History Social History Type Response Substance Abuse Use: None. Exercise Exercise frequency: Daily. Exercise type: Swimming. Alcohol Never Smoking Status Never smoker; Ready to change: No; Concerns about tobacco use in household: No; Exposure to Tobacco Smoke None; Cigarette Smoking Last 365 Days No; Reg Smoking Cessation Counseling No Assessment and Plan No data available for this section
--- OUTSIDE RECORDS SUMMARY | 2018-06-24 08:55 | XMS REPORT | Summary of Care ---
:1955 Author Organization [facility] Address [address] [address]- Encounter HQ Lia_arthur(TOMEKA) [id number] Date(s): 06/30/17 - 06/30/17 [facility] [address] [place], [place] [address] [phone] Discharge Disposition: Home or Self Care Attending Physician: Kayli Galeas MD Referring Physician: Shanti Simpson MD Vital Signs Most recent to oldest [Reference Range]: 1 Height 160.02 cm (06/30/17 12:09 PM) Temperature Oral [96.4-99.1 DegF] 97.5 DegF (06/30/17 12:09 PM) Blood Pressure [90-140/60-90 mmHg] 129/75 mmHg (06/30/17 12:09 PM) Respiratory Rate [14-20 BRMIN] 18 BRMIN (06/30/17 12:09 PM) Peripheral Pulse Rate [60-100 bpm] 73 bpm (06/30/17 12:09 PM) Weight 116.818 kg (06/30/17 12:09 PM) Body Mass Index 45.62 m2 (06/30/17 12:09 PM) Problem List Condition Effective Dates Status Health Status Informant Cardiac catheterization(Confirmed) Active Hyperlipemia(Confirmed) Active Hypertension(Confirmed) Active [place] (myocardial Active infarction)(Confirmed) OA (osteoarthritis)(Confirmed) Resolved Stent(Confirmed) Active Allergies, Adverse Reactions, Alerts Substance Reaction Severity Status penicillins Active tetanus toxoid Active Medications atorvastatin 80 mg oral tablet 80 mg=1 tab, PO, Daily, # 90 tab, 3 Refill(s), Pharmacy: [id number] Start Date: 06/30/17 Status: Orderedisosorbide mononitrate 30 mg oral tablet, extended release See Instructions, 3 tabs PO QAM, # 90 tab, 2 Refill(s), Pharmacy: [facility] [id number] Start Date: 06/30/17 Status: Ordered Results No data available for [...]
--- OUTSIDE RECORDS SUMMARY | 2018-06-24 08:55 | XMS REPORT | Summary of Care ---
:1955 Author Organization [facility] Address [address], [place] [address]- Encounter HQ Lia_arthur(FIN) [id number] Date(s): 06/14/16 - 06/14/16 [facility] [address] [place] [address] [phone] Discharge Disposition: Home or Self Care Attending Physician: Shanti Simpson MD Referring Physician: Shanti Simpson MD Vital Signs Most recent to oldest [Reference Range]: 1 Height 160.02 cm (06/14/16 11:52 AM) Temperature Oral [96.4-99.1 DegF] 97.5 DegF (06/14/16 11:52 AM) Blood Pressure [90-140/60-90 mmHg] 103/65 mmHg (06/14/16 11:52 AM) Respiratory Rate [14-20 BRMIN] 20 BRMIN (06/14/16 11:52 AM) Peripheral Pulse Rate [60-100 bpm] 77 bpm (06/14/16 11:52 AM) Weight 112.386 kg (06/14/16 11:52 AM) Body Mass Index 43.89 m2 (06/14/16 11:52 AM) Problem List Condition Effective Dates Status Health Status Informant Cardiac catheterization(Confirmed) Active Hyperlipemia(Confirmed) Active Hypertension(Confirmed) Active AL (myocardial Active infarction)(Confirmed) OA (osteoarthritis)(Confirmed) Resolved Stent(Confirmed) Active Allergies, Adverse Reactions, Alerts Substance Reaction Severity Status penicillins Active tetanus toxoid Active Medications carBAMazepine 300 mg oral capsule, extended release 300 mg=1 cap, PO, Bedtime, 0 Refill(s) Start Date: 06/14/16 Status: Ordereddiazepam 2 mg oral tablet 2 mg=1 tab, PO, BID, PRN Anxiety, # 60 tab, 0 Refill(s) Start Date: 06/14/16 Stop Date: 07/14/16 Status: Orderedpramipexole 0.25 mg oral tablet 0.25 mg=1 tab, PO, TID, 0 Refill(s) Start Date: 06/14/16 Status: Orderedtrazodone 100 mg oral tablet 100 mg=1 tab, PO, Bedtime, # 30 tab, 0 Refill(s) Start Date: 06/14/16 Stop Date: 07/14/16 Status: Ordered Results No data available for this section Immunizations No data available for this section Procedures Procedure Date Related Diagnosis Body Site Appendectomy Cardiac catheterization Gastric bypass Social History Social History Type Response Substance Abuse Use: None. Alcohol Never Smoking Status Never smoker; Ready to change: No; Concerns about tobacco use in household: No; Exposure to Tobacco Smoke None; Cigarette Smoking Last 365 Days No; Reg Smoking Cessation Counseling No Assessment and Plan No data available for this section
--- OUTSIDE RECORDS SUMMARY | 2018-06-24 08:55 | XMS REPORT | Summary of Care ---
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4-99.1 DegF] 99.1 DegF (11/27/17 2:19 PM) Blood Pressure [90-140/60-90 mmHg] 133/88 mmHg (11/27/17 2:19 PM) Respiratory Rate [14-20 BRMIN] 16 BRMIN (11/27/17 2:19 PM) Peripheral Pulse Rate [60-100 bpm] 81 bpm (11/27/17 2:19 PM) Weight 119.744 kg (11/27/17 2:19 PM) Body Mass Index 46.76 m2 (11/27/17 2:19 PM) Problem List Condition Effective Dates Status Health Status Informant Cardiac catheterization(Confirmed) Active Hyperlipemia(Confirmed) Active Hypertension(Confirmed) Active [place] (myocardial Active infarction)(Confirmed) Morbid obesity(Confirmed) Active OA (osteoarthritis)(Confirmed) Resolved Allergies, Adverse Reactions, Alerts Substance Reaction Severity Status penicillins Active tetanus toxoid Active Medications No Known Medications Results No data available for this section Immunizations No data available for this section Procedures Procedure Date Related Diagnosis Body Site Status Appendectomy Completed Cardiac catheterization Completed Gastric bypass Completed Social History Social History Type Response Substance Abuse Use: None. Exercise Exercise frequency: Daily. Exercise type: Swimming. Alcohol Never Smoking Status Never smoker; Ready to change: No; Concerns about tobacco use in household: No; Exposure to Tobacco Smoke None; Cigarette Smoking Last 365 Days No; Reg Smoking Cessation Counseling No entered on: 12/11/17 Assessment and Plan No data available for this section
--- OUTSIDE RECORDS SUMMARY | 2018-06-24 08:55 | XMS REPORT | Summary of Care ---
:1955 Author Organization [facility] Address [address] [place] [address]- Encounter HQ Encntr_alijoann(FIN) [id number] Date(s): 06/21/17 - 06/22/17 [facility] [address] [place] [address]- [phone] Discharge Diagnosis: Chest pain Discharge Disposition: Left Against Medical Advise Attending Physician: Cat Foy DO Vital Signs Most recent to oldest 1 2 3 [Reference Range]: Height 160.02 cm (06/21/17 10:35 PM) Temperature Oral [96.4-99.1 98.4 DegF 98.4 DegF DegF] (06/22/17 4:30 AM) (06/21/17 10:35 PM) Blood Pressure [90-140/60-90 161/83 mmHg 163/88 mmHg 177/82 mmHg mmHg] *HI* *HI* *HI* (06/22/17 4:30 AM) (06/22/17 3:00 AM) (06/22/17 2:04 AM) Respiratory Rate [14-20 16 BRMIN 16 BRMIN 16 BRMIN BRMIN] (06/22/17 4:30 AM) (06/22/17 3:00 AM) (06/22/17 2:04 AM) Peripheral Pulse Rate [60-100 64 bpm 58 bpm 59 bpm bpm] (06/22/17 4:30 AM) *LOW* *LOW* (06/22/17 3:00 AM) (06/22/17 2:04 AM) Weight 118.636 kg (06/21/17 10:35 PM) Body Mass Index 46.33 m2 (06/21/17 10:35 PM) Problem List Condition Effective Dates Status Health Status Informant Cardiac catheterization(Confirmed) Active Hyperlipemia(Confirmed) Active Hypertension(Confirmed) Active MS (myocardial Active infarction)(Confirmed) OA (osteoarthritis)(Confirmed) Resolved Stent(Confirmed) Active Allergies, Adverse Reactions, Alerts Substance Reaction Severity Status penicillins Active tetanus toxoid Active Medications aspirin 324 mg, 4 tab, Route: PO, Drug form: CHEWTAB, ONCE, Dosing Weight 119.091, kg, Priority: STAT, Startdate: 06/21/17 22:42:00 CDT, Stop date: 06/21/17 22:42:00 CDT Notes: Take with food. Start Date: 06/21/17 Stop Date: 06/22/17 Status: Completednitroglycerin 2% ointment 1 inch, Route: TOP, Drug Form: OINT, Dosing Weight 119.091, kg, ONCE, STAT, Start date: 06/21/17 22:42:00 CDT, Stop date: 06/21/17 22:42:00 CDT Notes: 1 gram is approximately 1 inch of nitroglycerin ointment (20 mg NTG per gram) (Same as:Nitro-Bid) Start Date: 06/21/17 Stop Date: 06/22/17 Status: CompletedSaline Flush 0.9% 10 mL, Route: IVP, Drug Form: INJ, Dosing Weight 119.091, kg, PRN, PRN Line Flush, Start date: 06/21/17 22:42:00 CDT, Duration: 30 day, Stop date: 07/21/17 22:41:00 CDT Notes: (Same as: BD Posiflush) Start Date: 06/21/17 Stop Date: 06/22/17 Status: Discontinued Results ELECTROLYTES Most recent to oldest [Reference Range]: 1 2 Sodium Lvl [135-145 mEq/L] 141 mEq/L (06/21/17 10:50 PM) Potassium Lvl [3.5-5.1 mEq/L] 4.1 mEq/L (06/21/17 10:50 PM) Chloride Lvl [95-109 mEq/L] 102 mEq/L (06/21/17 10:50 PM) CO2 [24-32 mEq/L] 33 mEq/L *HI* (06/21/17 10:50 PM) AGAP [10.0-20.0 mEq/L] 10.1 mEq/L (06/21/17 10:50 PM) CHEM PANEL Most recent to oldest [Reference Range]: 1 2 Creatinine Lvl [0.50-1.40 mg/dL] 0.87 mg/dL (06/21/17 10:50 PM) eGFR 72 mL/min/1.73m2 1 *NA* (06/21/17 10:50 PM) BUN [7-22 mg/dL] 11 mg/dL (06/21/17 10:50 PM) B/C Ratio [6-25] 13 (06/21/17 10:50 PM) Glucose Lvl [70-99 mg/dL] 87 mg/dL (06/21/17 10:50 PM) Total Protein [6.4-8.4 g/dL] 7.4 g/dL (06/21/17 10:50 PM) Albumin Lvl [3.5-5.0 g/dL] 3.7 g/dL (06/21/17 10:50 PM) Globulin [2.7-4.2 g/dL] 3.7 g/dL (06/21/17 10:50 PM) A/G Ratio [0.7-1.6] 1.0 (06/21/17 10:50 PM) Calcium Lvl [8.5-10.5 mg/dL] 9.1 mg/dL (06/21/17 10:50 PM) ALT [0-65 unit/L] 24 unit/L (06/21/17 10:50 PM) AST [0-37 unit/L] 19 unit/L (06/21/17 10:50 PM) Alk Phos [39-136 unit/L] 116 unit/L (06/21/17 10:50 PM) Bili Total [0.2-1.3 mg/dL] 0.4 mg/dL (06/21/17 10:50 PM) Lipase Lvl [73-393 unit/L] 112 unit/L (06/21/17 10:50 PM) 1Result Comment: The eGFR is calculated using the CKD-EPI formula. In most young , healthy individualsthe eGFR will be >90 mL/min/1.73m2. The eGFR declines with age. An eGFR of 60-89 may be normal in some populations, particularly the elderly, for whom the CKD-EPI formula has not been extensively validated. Use of the eGFR is not recommended in the following populations: Individuals with unstable creatinine concentrations, including patients and those with serious co-morbid conditions. Patients with extremes in muscle mass or diet. The data above are obtained from the National Kidney Disease Education Program ( NKDEP) which additionally recommends that when the eGFR is used in patients with extremes of body mass index for purposesof drug dosing, the eGFR should be multiplied by the estimated BMI.CARDIAC ENZYMES Most recent to oldest [Reference Range]: 1 2 Total CK [12-191 unit/L] 143 unit/L 154 unit/L (06/22/17 2:15 AM) (06/21/17 10:50 PM) CK MB [0.5-3.6 ng/mL] 1.2 ng/mL 1.3 ng/mL (06/22/17 2:15 AM) (06/21/17 10:50 PM) CK MB Index [0.0-2.5] 0.8 0.8 (06/22/17 2:15 AM) (06/21/17 10:50 PM) Troponin-I [0.00-0.40 ng/mL] <0.02 ng/mL <0.02 ng/mL (06/22/17 2:15 AM) (06/21/17 10:50 PM) URINE AND STOOL Most recent to oldest [Reference Range]: 1 2 UA Turbidity [Clear] Clear (06/21/17 10:50 PM) UA Color [Yellow] Yellow *NA* (06/21/17 10:50 PM) UA pH [5.0-8.0] 6.0 (06/21/17 10:50 PM) UA Spec Grav [<=1.030] 1.015 (06/21/17 10:50 PM) UA Glucose [Negative mg/dL] Negative mg/dL (06/21/17 10:50 PM) UA Blood [Negative] Negative (06/21/17 10:50 PM) UA Ketones [Negative mg/dL] Negative mg/dL *NA* (06/21/17 10:50 PM) UA Protein [Negative mg/dL] Negative mg/dL (06/21/17 10:50 PM) UA Urobilinogen [0.1-1.0 EU/dL] 0.2 EU/dL (06/21/17 10:50 PM) UA Bili [Negative] Negative *NA* (06/21/17 10:50 PM) UA Leuk Est [Negative] Negative (06/21/17 10:50 PM) UA Nitrite [Negative] Negative (06/21/17 10:50 PM) UA WBC [None Seen /HPF] 0-2 /HPF (06/21/17 10:50 PM) UA RBC [0-2] None Seen (06/21/17 10:50 PM) UA Bacteria [None Seen /HPF] Occasional /HPF (06/21/17 10:50 PM) UA Sq Epi [Few /LPF] Few /LPF (06/21/17 10:50 PM) UA Mucus [None Seen] None Seen (06/21/17 10:50 PM) HEMATOLOGY Most recent to oldest [Reference Range]: 1 2 WBC [3.7-10.4 K/CMM] 6.7 K/CMM (06/21/17 10:50 PM) RBC [4.20-5.40 M/CMM] 4.47 M/CMM (06/21/17 10:50 PM) Hgb [12.0-16.0 g/dL] 12.7 g/dL (06/21/17 10:50 PM) Hct [36.0-48.0 %] 38.0 % (06/21/17 10:50 PM) MCV [80.0-98.0 fL] 85.0 fL (06/21/17 10:50 PM) MCH [27.0-31.0 pg] 28.4 pg (06/21/17 10:50 PM) MCHC [32.0-36.0 g/dL] 33.4 g/dL (06/21/17 10:50 PM) RDW [11.5-14.5 %] 13.6 % (06/21/17 10:50 PM) Platelet [133-450 K/CMM] 295 K/CMM (06/21/17 10:50 PM) MPV [7.4-10.4 fL] 7.8 fL (06/21/17 10:50 PM) Segs [45.0-75.0 %] 60.0 % (06/21/17 10:50 PM) Lymphocytes [20.0-40.0 %] 28.7 % (06/21/17 10:50 PM) Monocytes [2.0-12.0 %] 7.9 % (06/21/17 10:50 PM) Eosinophils [0.0-4.0 %] 2.8 % (06/21/17 10:50 PM) Basophils [0.0-1.0 %] 0.6 % (06/21/17 10:50 PM) Segs-Bands # [1.5-8.1 K/CMM] 4.0 K/CMM (06/21/17 10:50 PM) Lymphocytes # [1.0-5.5 K/CMM] 1.9 K/CMM (06/21/17 10:50 PM) Monocytes # [0.0-0.8 K/CMM] 0.5 K/CMM (06/21/17 10:50 PM) Eosinophils # [0.0-0.5 K/CMM] 0.2 K/CMM (06/21/17 10:50 PM) PT [12.0-14.7 seconds] 12.9 seconds (06/21/17 10:50 PM) INR [0.85-1.17] 0.95 (06/21/17 10:50 PM) PTT [22.9-35.8 seconds] 35.1 seconds (06/21/17 10:50 PM) Immunizations No data available for this section Procedures Procedure Date Related Diagnosis Body Site Appendectomy Cardiac catheterization Gastric bypass Social History Social History Type Response Substance Abuse Use: None. Exercise Exercise frequency: Daily. Exercise type: Swimming. Alcohol Never Smoking Status Never smoker; Concerns about tobacco use in household: No; Exposure to Tobacco Smoke None; Cigarette Smoking Last 365 Days No; Reg Smoking Cessation Counseling No Assessment and Plan No data available for this section
--- OUTSIDE RECORDS SUMMARY | 2018-06-24 08:55 | XMS REPORT | Summary of Care ---
:1955 Author Organization [facility] Address [address] [place] [address]- Encounter HQ Encntr_alias(FIN) [id number] Date(s): 06/07/16 - 06/08/16 [facility] [address] [place] [address]- Discharge Disposition: Home or Self Care Attending Physician: Nathaniel Larson MD Admitting Physician: Tello Schuster MD Vital Signs Most recent to oldest 1 2 3 [Reference Range]: Height 160.02 cm 172.72 cm (06/07/16 8:17 PM) (06/07/16 3:35 PM) Temperature Oral [96.4-99.1 97.6 DegF 97.5 DegF 98.0 DegF DegF] (06/08/16 5:04 AM) (06/08/16 12:05 AM) (06/07/16 8:30 PM) Blood Pressure [90-140/60-90 126/68 mmHg 130/77 mmHg 148/85 mmHg mmHg] (06/08/16 5:04 AM) (06/08/16 12:05 AM) *HI* (06/07/16 8:30 PM) Respiratory Rate [14-20 BRMIN] 20 BRMIN 20 BRMIN 20 BRMIN (06/08/16 5:04 AM) (06/08/16 12:05 AM) (06/07/16 8:30 PM) Peripheral Pulse Rate [60-100 58 bpm 62 bpm 50 bpm bpm] *LOW* (06/08/16 12:05 AM) *LOW* (06/08/16 5:04 AM) (06/07/16 8:30 PM) Weight 116.591 kg 116.364 kg 100 kg (06/08/16 6:08 AM) (06/07/16 8:17 PM) (06/07/16 3:35 PM) Body Mass Index 45.44 m2 33.52 m2 (06/07/16 8:17 PM) (06/07/16 3:35 PM) Problem List Condition Effective Dates Status Health Status Informant Cardiac catheterization(Confirmed) Active Hyperlipemia(Confirmed) Active Hypertension(Confirmed) Active [place] (myocardial Active infarction)(Confirmed) OA (osteoarthritis)(Confirmed) Resolved Stent(Confirmed) Active Allergies, Adverse Reactions, Alerts Substance Reaction Severity Status penicillins Active tetanus toxoid Active Medications Ambien 5 mg, 1 tab, Route: PO, Drug form: TAB, Bedtime, PRN Sleep, Start date: 22:16:00 CDT, Duration: 30 day, Stop date: 07/07/16 22:15:00 CDT Notes: (Same As: Ambien) Start Date: 06/07/16 Stop Date: 06/08/16 Status: Discontinuedaspirin 324 mg, 4 tab, Route: CHEW, Drug form: CHEWTAB, ONCE, Dosing Weight 100, kg, Priority: STAT, Start date: 06/07/16 17:40:00 CDT, Stop date: 06/07/16 17:40:00 CDT Notes: Take with food. Start Date: 06/07/16 Stop Date: 06/07/16 Status: Completedaspirin 325 mg tablet, enteric coated 325 mg, 1 tab, Route: PO, Drug form: ECTAB, Daily, Dosing Weight 100, kg, Start date: 06/08/16 9:00:00 CDT, Duration: 30 day, Stop date: 07/07/16 9:00:00 CDT Notes: (Do Not Crush) Do not crush or chew. Start Date: 06/08/16 Stop Date: 06/08/16 Status: Discontinuedatorvastatin 80 mg, 4 tab, Route: PO, Drug form: TAB, Bedtime, Dosing Weight 116.364, kg, Start date: 06/07/16 23:00:00 CDT, Duration: 30 day, Stop date: 07/07/16 21:00: 00 CDT Notes: (Same As: Lipitor) Start Date: 06/07/16 Stop Date: 06/08/16 Status: Discontinuedatorvastatin 80 mg oral tablet 80 mg=1 tab, PO, Daily, # 90 tab, 3 Refill(s) Start Date: 06/07/16 Status: Orderedbaclofen 20 mg, 2 tab, Route: PO, Drug form: TAB, ONCE, Dosing Weight 116.591, kg, Start date: 06/08/16 10:16:00 CDT, Stop date: 06/08/16 10:16:00 CDT Notes: (Same As: Kelby) Start Date: 06/08/16 Stop Date: 06/08/16 Status: Completedbaclofen 20 mg oral tablet 20 mg=1 tab, PO, TID, PRN Spasms, # 90 tab, 0 Refill(s) Start Date: 06/08/16 Status: OrderedEffient 10 mg, 1 tab, Route: PO, Drug form: TAB, Daily, Dosing Weight 116.364, kg, Start date: 06/08/16 9:00:00 CDT, Duration: 30 day, Stop date: 07/07/16 9:00:00 CDT Notes: Same as Effient For patients < 75 years old, > 60kg, without history of TIA/Ischemic stroke and without likely bypass surgery Start Date: 06/08/16 Stop Date: 06/08/16 Status: DiscontinuedEffient 10 mg oral tablet 10 mg=1 tab, PO, Daily, # 30 tab, 0 Refill(s) Start Date: 06/07/16 Status: Orderedheparin 5,000 unit, 1 mL, Route: SUB-Q, Drug form: INJ, Q12H, Dosing Weight 100, kg, Start date: 06/07/16 21:00:00 CDT, Duration: 30 day, Stop date: 07/07/16 9:00: 00 CDT Notes: porcine heparin Start Date: 06/07/16 Stop Date: 06/08/16 Status: DiscontinuedImdur 60 mg oral tablet, extended release 60 mg=1 tab, PO, QAM, # 30 tab, 11 Refill(s) Start Date: 06/08/16 Status: OrderedLunesta 3 mg, Route: PO, Drug form: TAB, Bedtime, Dosing Weight 116.364, kg, PRN Insomnia, Start date: 06/07/16 21:11:00 CDT, Duration: 30 day, Stop date: 21:10:00 CDT Start Date: 06/07/16 Stop Date: 06/07/16 Status: DeletedLunesta 3 mg oral tablet 3 mg=1 tab, PO, Bedtime, PRN for insomnia, # 30 tab, 0 Refill(s) Start Date: 06/07/16 Stop Date: 07/07/16 Status: Orderedmorphine Sulfate 2 mg, 1 mL, Route: IVP, Drug form: INJ, Q15Min, Dosing Weight 100, kg, PRN Chest Pain, Start date: 06/07/16 18:28:00 CDT, Duration: 2 doses or times, Stop date: Limited # of times Notes: (Same as:MORPhine Sulfate) Start Date: 06/07/16 Stop Date: 06/08/16 Status: Completednitroglycerin 0.4 mg sublingual tablet 0.4 mg=1 tab, SL, Q5Min, PRN Chest pain, Give up to 3 doses. Call 911 if pain persists., # 100 tab, 3 Refill(s) Start Date: 06/08/16 Status: Orderednitroglycerin SL Tab 0.4 mg, 1 tab, Route: SL, Drug form: TAB, Q5Min, Dosing Weight 100, kg, PRN Chest Pain, Start date: 06/07/16 18:28:00 CDT, Duration: 3 doses or times, Stop date: Limited # of times Notes: (Same as:Nitroquick, Nitrostat)"Do Not Crush" Sublingual tablet Start Date: 06/07/16 Stop Date: 06/08/16 Status: Discontinuedondansetron 4 mg, 1 tab, Route: PO, Drug form: TAB, Q4H, Dosing Weight 100, kg, PRN Nausea & amp; Vomiting, Startdate: 06/07/16 18:28:00 CDT, Duration: 30 day, Stop date: 18:27:00 CDT Notes: (Same as: Zofran) Start Date: 06/07/16 Stop Date: 06/08/16 Status: DiscontinuedSaline Flush 0.9% 10 ml, Route: IVP, Drug Form: INJ, Dosing Weight 100, kg, PRN, PRN Line Flush, Start date: 06/07/16 18:28:00 CDT, Duration: 30 day, Stop date: 07/07/16 18:27: 00 CDT Notes: (Same as: BD Posiflush) Start Date: 06/07/16 Stop Date: 06/07/16 Status: DiscontinuedSaline Flush 0.9% 10 ml, Route: IVP, Drug Form: INJ, Dosing Weight 100, kg, Q12H, Start date: 21:00:00 CDT, Duration: 30 day, Stop date: 07/07/16 9:00:00 CDT Notes: (Same as: BD Posiflush) Start Date: 06/07/16 Stop Date: 06/08/16 Status: DiscontinuedSaline Flush 0.9% 10 mL, Route: IVP, Drug Form: INJ, Dosing Weight 100, kg, PRN, PRN Line Flush, Start date: 06/07/16 15:55:00 CDT, Duration: 30 day, Stop date: 07/07/16 15:54: 00 CDT Notes: (Same as: BD Posiflush) Start Date: 06/07/16 Stop Date: 06/08/16 Status: DiscontinuedSodium Chloride 0.9% IV 25 mL, Route: IV, Start date: 06/07/16 15:59:00 CDT, Duration: 30 day, Stop date : 07/07/16 15:58:00 CDT, PRN Line Flush Start Date: 06/07/16 Stop Date: 06/08/16 Status: Discontinuedspironolactone 25 mg, 1 tab, Route: PO, Drug form: TAB, Daily, Dosing Weight 116.364, kg, Start date: 06/08/16 9:00:00 CDT, Duration: 30 day, Stop date: 07/07/16 9:00:00 CDT Notes: (Same As: Aldactone) Start Date: 06/08/16 Stop Date: 06/08/16 Status: Discontinuedspironolactone 25 mg oral tablet 25 mg=1 tab, PO, Daily, # 30 tab, 3 Refill(s) Start Date: 06/07/16 Stop Date: 07/07/16 Status: Orderedvalsartan 320 mg, 2 tab, Route: PO, Drug form: TAB, Daily, Dosing Weight 116.364, kg, Start date: 06/08/16 9:00:00 CDT, Duration: 30 day, Stop date: 07/07/16 9:00:00 CDT Notes: Same as Diovan Start Date: 06/08/16 Stop Date: 06/08/16 Status: Discontinuedvalsartan 320 mg oral tablet 320 mg=1 tab, PO, Daily, # 30 tab, 0 Refill(s) Start Date: 06/07/16 Status: OrderedWellbutrin 300 mg, 2 tab, Route: PO, Drug form: ERTAB, Daily, Dosing Weight 116.364, kg, Start date: 06/08/16 9:00:00 CDT, Duration: 30 day, Stop date: 07/07/16 9:00:00 CDT Start Date: 06/08/16 Stop Date: 06/08/16 Status: DiscontinuedWellbutrin 300 mg, PO, Daily, 0 Refill(s) Start Date: 06/07/16 Status: Ordered Results ELECTROLYTES Most recent to oldest [Reference Range]: 1 2 3 Sodium Lvl [135-145 mEq/L] 138 mEq/L (06/07/16 3:59 PM) Potassium Lvl [3.5-5.1 mEq/L] 3.7 mEq/L (06/07/16 3:59 PM) Chloride Lvl [95-109 mEq/L] 101 mEq/L (06/07/16 3:59 PM) CO2 [24-32 mEq/L] 33 mEq/L *HI* (06/07/16 3:59 PM) AGAP [10.0-20.0 mEq/L] 7.7 mEq/L *LOW* (06/07/16 3:59 PM) CHEM PANEL Most recent to oldest [Reference Range]: 1 2 3 Creatinine Lvl [0.50-1.40 mg/dL] 0.98 mg/dL (06/07/16 3:59 PM) eGFR 63 mL/min/1.73m2 1 *NA* (06/07/16 3:59 PM) BUN [7-22 mg/dL] 16 mg/dL (06/07/16 3:59 PM) B/C Ratio [6-25] 16 (06/07/16 3:59 PM) Glucose Lvl [70-99 mg/dL] 84 mg/dL (06/07/16 3:59 PM) Total Protein [6.4-8.4 g/dL] 7.4 g/dL (06/07/16 3:59 PM) Albumin Lvl [3.5-5.0 g/dL] 3.7 g/dL (06/07/16 3:59 PM) Globulin [2.7-4.2 g/dL] 3.7 g/dL (06/07/16 3:59 PM) A/G Ratio [0.7-1.6] 1.0 (06/07/16 3:59 PM) Calcium Lvl [8.5-10.5 mg/dL] 8.8 mg/dL (06/07/16 3:59 PM) ALT [0-65 unit/L] 23 unit/L (06/07/16 3:59 PM) AST [0-37 unit/L] 17 unit/L (06/07/16 3:59 PM) Alk Phos [39-136 unit/L] 134 unit/L (06/07/16 3:59 PM) Bili Total [0.2-1.3 mg/dL] 0.4 mg/dL (06/07/16 3:59 PM) 1Result Comment: The eGFR is calculated [...] estimated BMI.CARDIAC ENZYMES Most recent to oldest 1 2 3 [Reference Range]: Total CK [12-191 unit/L] 112 unit/L (06/07/16 3:59 PM) CK MB [0.5-3.6 ng/mL] 1.8 ng/mL (06/07/16 3:59 PM) CK MB Index [0.0-2.5] 1.6 (06/07/16 3:59 PM) Troponin-I [0.00-0.40 ng/mL] 0.02 ng/mL <0.02 ng/mL <0.02 ng/mL (06/08/16 12:37 AM) (06/07/16 8:08 PM) (06/07/16 3:59 PM) LIPIDS Most recent to oldest [Reference Range]: 1 2 3 CHD Risk [3.90-5.80] 3.06 *LOW* (06/08/16 12:37 AM) Chol [<=199 mg/dL] 153 mg/dL (06/08/16 12:37 AM) Trig [<=149 mg/dL] 109 mg/dL (06/08/16 12:37 AM) HDL [>=61 mg/dL] 50 mg/dL *LOW* (06/08/16 12:37 AM) LDL (Calculated) [<=99 mg/dL] 81 mg/dL (06/08/16 12:37 AM) VLDL 22 *NA* (06/08/16 12:37 AM) HEMATOLOGY Most recent to oldest [Reference Range]: 1 2 3 WBC [3.7-10.4 K/CMM] 7.6 K/CMM (06/07/16 3:59 PM) RBC [4.20-5.40 M/CMM] 4.16 M/CMM *LOW* (06/07/16 3:59 PM) Hgb [12.0-16.0 g/dL] 11.9 g/dL *LOW* (06/07/16 3:59 PM) Hct [36.0-48.0 %] 34.8 % *LOW* (06/07/16 3:59 PM) MCV [80.0-98.0 fL] 83.7 fL (06/07/16 3:59 PM) MCH [27.0-31.0 pg] 28.6 pg (06/07/16 3:59 PM) MCHC [32.0-36.0 g/dL] 34.1 g/dL (06/07/16 3:59 PM) RDW [11.5-14.5 %] 13.6 % (06/07/16 3:59 PM) Platelet [133-450 K/CMM] 305 K/CMM (06/07/16 3:59 PM) MPV [7.4-10.4 fL] 8.3 fL (06/07/16 3:59 PM) Segs [45.0-75.0 %] 57.1 % (06/07/16 3:59 PM) Lymphocytes [20.0-40.0 %] 31.2 % (06/07/16 3:59 PM) Monocytes [2.0-12.0 %] 8.8 % (06/07/16 3:59 PM) Eosinophils [0.0-4.0 %] 2.2 % (06/07/16 3:59 PM) Basophils [0.0-1.0 %] 0.7 % (06/07/16 3:59 PM) Segs-Bands # [1.5-8.1 K/CMM] 4.3 K/CMM (06/07/16 3:59 PM) Lymphocytes # [1.0-5.5 K/CMM] 2.4 K/CMM (06/07/16 3:59 PM) Monocytes # [0.0-0.8 K/CMM] 0.7 K/CMM (06/07/16 3:59 PM) Eosinophils # [0.0-0.5 K/CMM] 0.2 K/CMM (06/07/16 3:59 PM) Basophils # [0.0-0.2 K/CMM] 0.1 K/CMM (06/07/16 3:59 PM) PT [12.0-14.7 seconds] 13.0 seconds (06/07/16 3:59 PM) INR [0.85-1.17] 0.95 (06/07/16 3:59 PM) D-Dimer 0.34 ug/mL FEU *NA* (06/07/16 3:59 PM) PTT [22.9-35.8 seconds] 34.9 seconds (06/07/16 3:59 PM) Immunizations No data available for this [...] Smoking Cessation Counseling No Assessment and Plan Extracted from: Title: [facility] Cardiology Consult Note Author: Shanti Simpson MD Date : 06/08/16 Assessment/Plan Orders: Imdur 60 mg oral tablet, extended release, 60 mg=1 tab, PO, QAM, # 30 tab, 11 Refill(s) nitroglycerin 0.4 mg sublingual tablet, 0.4 mg=1 tab, SL, Q5Min, PRN Chest pain, Give up to 3 doses. Call 911 if pain persists., # 100 tab, 3 Refill(s) Discharge Membership Director Clearance - Sign Off(Provider Only) Ms Jones is an obese 61-year-old woman with history of coronary artery disease status post PCI in November 2015, systemic hypertension, dyslipidemia and osteoarthritis who presented to the emergency d [facility] with the complaints of chest pain and back pain. 1. Chest pain Concerning for unstable angina, given recent recurrence after her chest pain free period since PCI in November. She is nondiabetic and does not have a history of systolic heart failure, therefore, med ical management and repeat stenting would be considered therapeutically equivalent. We discussed this approach with the patient and she is agreeable to medical management at this time -Continue aspirin, Effient and high intensity statin -Prescribed nitroglycerin sublingual tablets to be used as needed -Prescribed Imdur 60 mg by mouth daily -Follow-up TTE 2. Systemic hypertension, controlled Her blood pressures have been controlled and she has a relative resting bradycardia. Therefore, I have chosen nitroglycerin as the first anti-anginal but may reassess for the addition of amlodipine in the near future, as opposed to beta-blockade -Continue valsartan and spironolactone 3. Back pain History of osteoarthritis. The hands over her right back and is reproducible on exam, more likely musculoskeletal component -Defer management to primary service, but would consider pain medications and/ or trial of muscle relaxants -Also discussed warm heat and stretching exercises Okay for discharge from cardiology perspective. She will be given a clinic appointment early next week to reassess her symptoms. She should return to the emergency department sooner if her chest tejinder n is unrelieved with nitroglycerin. She will bring us her personal records at that time.
--- OUTSIDE RECORDS SUMMARY | 2018-06-24 08:55 | XMS REPORT | Summary of Care ---
:1955 Author Organization [facility] Address [address] [place] [address]- Encounter HQ Encntr_alias(FIN) [id number] Date(s): 07/17/17 - 07/17/17 [facility] [id number] [place] [phone]- [phone] Discharge Disposition: Home or Self Care Attending Physician: Kayli Galeas MD Admitting Physician: Kayli Galeas MD Referring Physician: Kayli Galeas MD Vital Signs No data available for this section Problem List Condition Effective Dates Status Health Status Informant Cardiac catheterization(Confirmed) Active Hyperlipemia(Confirmed) Active Hypertension(Confirmed) Active OK (myocardial Active infarction)(Confirmed) OA (osteoarthritis)(Confirmed) Resolved Stent(Confirmed) Active Allergies, Adverse Reactions, Alerts Substance Reaction Severity Status penicillins Active tetanus toxoid Active Medications No data available for this section Results No data available for this section [...]
--- OUTSIDE RECORDS SUMMARY | 2018-06-24 08:55 | XMS REPORT | Summary of Care ---
:1955 Author Organization [facility] Address [address] [place] [address]- Encounter HQ Encntr_alias(FIN) [id number] Date(s): 09/20/17 - 09/21/17 [facility] [address] [place] [address]- [phone] Vital Signs No data available for this section Problem List Condition Effective Dates Status Health Status Informant Cardiac catheterization(Confirmed) Active Hyperlipemia(Confirmed) Active Hypertension(Confirmed) Active SD (myocardial Active infarction)(Confirmed) Morbid obesity(Confirmed) Active OA [...]
--- OUTSIDE RECORDS SUMMARY | 2018-06-24 08:55 | XMS REPORT | Summary of Care ---
:1955 Author Organization [facility] Address [address] [employer], [address] [place] [address]- Encounter HQ Encntr_alias(FIN) [id number] Date(s): 10/26/17 - 10/27/[facility] [email or web address] [place] [address] [phone] Vital Signs No data available for this section Problem List Condition Effective Dates Status Health Status Informant Cardiac catheterization(Confirmed) Active Hyperlipemia(Confirmed) Active Hypertension(Confirmed) Active PA (myocardial Active infarction)(Confirmed) Morbid obesity(Confirmed) Active OA [...]
--- OUTSIDE RECORDS SUMMARY | 2018-06-24 08:55 | XMS REPORT | Summary of Care ---
:1955 Author Organization [facility] Cam[facility] Address [email or web address] [place] [address]- Encounter HQ Rejir_arthur(FIN) [phone] Date(s): 12/11/17 - 12/11/17 [facility] Camille Galarza [email or web address] [place] [phone] Discharge Disposition: Home or Self Care Referring Physician: Kayli Galeas MD Vital Signs Most recent to oldest [Reference Range]: 1 Blood Pressure [90-140/60-90 mmHg] 176/91 mmHg *HI* (12/11/17 3:02 PM) Peripheral Pulse Rate [60-100 bpm] 93 bpm (12/11/17 3:02 PM) Weight 123.977 kg (12/11/17 3:02 PM) Problem List Condition Effective Dates Status Health Status Informant Cardiac catheterization(Confirmed) Active Hyperlipemia(Confirmed) Active Hypertension(Confirmed) Active [place] (myocardial Active infarction)(Confirmed) Morbid obesity(Confirmed) Active OA (osteoarthritis)(Confirmed) Resolved Allergies, Adverse Reactions, Alerts Substance Reaction Severity Status penicillins Active tetanus toxoid Active Medications predniSONE 2.5 mg oral tablet 2.5 mg=1 tab, PO, Daily, # 30 tab, 3 Refill(s), Pharmacy: [facility] [id number] Start Date: 12/11/17 Status: Orderedpyridostigmine 180 mg oral tablet, extended release 180 mg=1 tab, PO, QAM, # 30 tab, 3 Refill(s), Pharmacy: [facility] [id number] Start Date: 12/11/17 Status: Orderedtizanidine 4 mg oral tablet 4 mg=1 tab, PO, Bedtime, # 30 tab, 3 Refill(s), Pharmacy: [facility] [id number] Start Date: 12/11/17 Stop Date: 04/10/18 Status: Ordered Results No data available for [...]
--- OUTSIDE RECORDS SUMMARY | 2018-06-24 08:55 | XMS REPORT | Summary of Care ---
:1955 Author Organization [facility] Address [address] [place] [address]- Encounter HQ Encntr_alias(FIN) [id number] Date(s): 06/21/17 - 06/21/17 [facility] [address] [place] [address]- Discharge Disposition: Home or Self Care Attending Physician: Jason Butler DO Referring Physician: Kayli Galeas MD Vital Signs Most recent to oldest [Reference Range]: 1 Height 160.02 cm (06/21/17 5:58 PM) Temperature Oral [96.4-99.1 DegF] 98.1 DegF (06/21/17 5:58 PM) Blood Pressure [90-140/60-90 mmHg] 161/94 mmHg *HI* (06/21/17 5:58 PM) Respiratory Rate [14-20 BRMIN] 18 BRMIN (06/21/17 5:58 PM) Peripheral Pulse Rate [60-100 bpm] 89 bpm (06/21/17 5:58 PM) Weight 119.091 kg (06/21/17 5:58 PM) Body Mass Index 46.51 m2 (06/21/17 5:58 PM) Problem List Condition Effective Dates Status Health Status Informant Cardiac catheterization(Confirmed) Active Hyperlipemia(Confirmed) Active Hypertension(Confirmed) Active [place] (myocardial Active infarction)(Confirmed) OA (osteoarthritis)(Confirmed) Resolved Stent(Confirmed) Active Allergies, Adverse Reactions, Alerts Substance Reaction Severity Status penicillins Active tetanus toxoid Active Medications Saline Flush 0.9% 10 mL, Route: IVP, Drug Form: INJ, Dosing Weight 119.091, kg, PRN, PRN Line Flush, Start date: 06/21/17 18:13:00 CDT, Duration: 30 day, Stop date: 07/21/17 18:12:00 CDT Notes: (Same as: BD Posiflush) Start Date: 06/21/17 Stop Date: 06/21/17 Status: Discontinued Results No data available for this section [...]
--- OUTSIDE RECORDS SUMMARY | 2018-06-24 08:55 | XMS REPORT | Summary of Care ---
:1955 Author Organization [facility] Address [address] [place], [place] [address]- Encounter HQ Encntr_alias(FIN) [id number] Date(s): 12/06/17 - 12/06/17 [facility] [address] [place] [address]- [place] Encounter Diagnosis Other symptoms and signs involving cognitive functions and awareness (Final) - Low back pain (Final) - Degenerative disease of nervous system, unspecified (Final) - Spondylosis without myelopathy or radiculopathy, lumbar region (Final) - Other intervertebral disc degeneration, lumbar region (Final) - Spinal stenosis, lumbar region without neurogenic claudication (Final) - Unspecified dementia without behavioral disturbance (Final) - Discharge Disposition: Home or Self Care Attending Physician: Aldo Walker MD Vital Signs No data available for this section Problem List Condition Effective Dates Status Health Status Informant Cardiac catheterization(Confirmed) Active Hyperlipemia(Confirmed) Active Hypertension(Confirmed) Active [place] (myocardial Active infarction)(Confirmed) Morbid obesity(Confirmed) Active OA [...]
--- OUTSIDE RECORDS SUMMARY | 2018-06-24 08:56 | XMS REPORT | Summary of Care ---
:1955 Author Organization [facility] Address [address] [place] [address]- Encounter HQ Lia_arthur(FIN) [id number] Date(s): 10/13/16 - 10/13/16 [facility] [address] [place] [address]- [phone] Discharge Diagnosis: Acute diverticulitis Discharge Diagnosis: Abdominal pain, acute, left lower quadrant Discharge Disposition: Home or Self Care Attending Physician: Aditya Lindsay MD Vital Signs Most recent to oldest [Reference Range]: 1 2 Height 160.02 cm (10/13/16 12:07 PM) Temperature Oral [96.4-99.1 DegF] 98.0 DegF 98.1 DegF (10/13/16 2:55 PM) (10/13/16 12:07 PM) Blood Pressure [90-140/60-90 mmHg] 134/88 mmHg 164/94 mmHg (10/13/16 2:55 PM) *HI* (10/13/16 12:07 PM) Respiratory Rate [14-20 BRMIN] 18 BRMIN 18 BRMIN (10/13/16 2:55 PM) (10/13/16 12:07 PM) Peripheral Pulse Rate [60-100 bpm] 70 bpm 73 bpm (10/13/16 2:55 PM) (10/13/16 12:07 PM) Weight 117.773 kg (10/13/16 12:07 PM) Body Mass Index 45.99 m2 (10/13/16 12:07 PM) Problem List Condition Effective Dates Status Health Status Informant Cardiac catheterization(Confirmed) Active Hyperlipemia(Confirmed) Active Hypertension(Confirmed) Active [place] (myocardial Active infarction)(Confirmed) OA (osteoarthritis)(Confirmed) Resolved Stent(Confirmed) Active Allergies, Adverse Reactions, Alerts Substance Reaction Severity Status penicillins Active tetanus toxoid Active Medications BD Normal Saline Flush 10 mL, Route: IV, Drug Form: INJ, PRN, PRN Line Flush, Start date: 10/13/16 12: 15:00 BRANCH EXAMINER, Duration: 30 day, Stop date: 11/12/16 12:14:00 BRANCH EXAMINER Notes: (Same as: BD Posiflush) Start Date: 10/13/16 Stop Date: 10/13/16 Status: DiscontinuedCipro 500 mg, 1 tab, Route: PO, Drug form: TAB, ONCE, Dosing Weight 117.773, kg, Priority: STAT, Start date: 10/13/16 14:42:00 BRANCH EXAMINER, Stop date: 10/13/16 14:42:00 BRANCH EXAMINER Notes: May interfere w/enteral feedings - Take 1 hr before or 2 hrs after antacids, dairy pdt & minerals. On empty stomach. Start Date: 10/13/16 Stop Date: 10/13/16 Status: CompletedCipro 500 mg oral tablet 500 mg=1 tab, PO, Q12H, # 20 tab, 0 Refill(s) Start Date: 10/13/16 Stop Date: 10/16/16 Status: SuspendedFlagyl 500 mg, 1 tab, Route: PO, Drug form: TAB, ONCE, Dosing Weight 117.773, kg, Priority: STAT, Start date: 10/13/16 14:42:00 BRANCH EXAMINER, Stop date: 10/13/16 14:42:00 BRANCH EXAMINER Notes: (Same as: Flagyl) Take with food/ avoid alcohol Start Date: 10/13/16 Stop Date: 10/13/16 Status: CompletedFlagyl 500 mg oral tablet 500 mg=1 tab, PO, TID, # 30 tab, 0 Refill(s) Start Date: 10/13/16 Stop Date: 10/16/16 Status: Suspendedmorphine Sulfate 4 mg, 1 mL, Route: IVP, Drug form: INJ, ONCE, Dosing Weight 117.727, kg, Priority: STAT, Start date:10/13/16 12:07:00 BRANCH EXAMINER, Stop date: 10/13/16 12:07:00 BRANCH EXAMINER Notes: (Same as:MORPhine Sulfate) Start Date: 10/13/16 Stop Date: 10/13/16 Status: Completedondansetron 4 mg, 2 mL, Route: IVP, Drug form: INJ, ONCE, Dosing Weight 117.727, kg, Priority: STAT, Start date:10/13/16 12:07:00 BRANCH EXAMINER, Stop date: 10/13/16 12:07:00 BRANCH EXAMINER Notes: (Same as: Liza) MEDICATION WASTE Product Size: 4 mgProduct Wasted: _0__ mg Start Date: 10/13/16 Stop Date: 10/13/16 Status: CompletedSodium Chloride 0.9% (Bolus) IV 1,000 mL, 2,000 ml/hr, Infuse Over: 30 minutes, Route: IV, 1,000, Drug form: INJ , ONCE, Priority: STAT, Dosing Weight 117.727 kg, Start date: 10/13/16 12:07:00 BRANCH EXAMINER, Duration: 1 doses or times, Stop date: 10/13/16 12:07:00 BRANCH EXAMINER Start Date: 10/13/16 Stop Date: 10/13/16 Status: CompletedSodium Chloride 0.9% IV IV, 0 ml/hr, PRN, PRN Line Flush, Start date: 10/13/16 12:15:00 BRANCH EXAMINER, Duration: 30, 25 ml Start Date: 10/13/16 Stop Date: 10/13/16 Status: Discontinuedtramadol 50 mg oral tablet 50 mg=1 tab, PO, Q4H, PRN Pain, # 20 tab, 0 Refill(s) Start Date: 10/13/16 Stop Date: 10/16/16 Status: Suspended Results ELECTROLYTES Most recent to oldest [Reference Range]: 1 Sodium Lvl [135-145 mEq/L] 143 mEq/L (10/13/16 12:27 PM) Potassium Lvl [3.5-5.1 mEq/L] 3.8 mEq/L (10/13/16 12:27 PM) Chloride Lvl [95-109 mEq/L] 104 mEq/L (10/13/16 12:27 PM) CO2 [24-32 mEq/L] 33 mEq/L *HI* (10/13/16 12:27 PM) AGAP [10.0-20.0 mEq/L] 9.8 mEq/L *LOW* (10/13/16 12:27 PM) CHEM PANEL Most recent to oldest [Reference Range]: 1 Creatinine Lvl [0.50-1.40 mg/dL] 0.78 mg/dL (10/13/16 12:27 PM) eGFR 83 mL/min/1.73m2 1 *NA* (10/13/16 12:27 PM) BUN [7-22 mg/dL] 8 mg/dL (10/13/16 12:27 PM) B/C Ratio [6-25] 10 (10/13/16 12:27 PM) Glucose Lvl [70-99 mg/dL] 103 mg/dL *HI* (10/13/16 12: PM) Total Protein [6.4-8.4 g/dL] 7.2 g/dL (10/13/16 12:27 PM) Albumin Lvl [3.5-5.0 g/dL] 3.1 g/dL *LOW* (10/13/16 12:27 PM) Globulin [2.7-4.2 g/dL] 4.1 g/dL (10/13/16 12:27 PM) A/G Ratio [0.7-1.6] 0.8 (10/13/16 12:27 PM) Calcium Lvl [8.5-10.5 mg/dL] 9.0 mg/dL (10/13/16 12:27 PM) ALT [0-65 unit/L] 18 unit/L (10/13/16 12:27 PM) AST [0-37 unit/L] 14 unit/L (10/13/16 12:27 PM) Alk Phos [39-136 unit/L] 119 unit/L (10/13/16 12:27 PM) Bili Total [0.2-1.3 mg/dL] 0.4 mg/dL (10/13/16 12:27 PM) Lipase Lvl [73-393 unit/L] 152 unit/L (10/13/16 12:27 PM) 1Result Comment: The eGFR is calculated [...] eGFR should be multiplied by the estimated BMI.URINE AND STOOL Most recent to oldest [Reference Range]: 1 UA Turbidity [Clear] Clear (10/13/16 12:27 PM) UA Color [Yellow] Yellow *NA* (10/13/16 12:27 PM) UA pH [5.0-8.0] 6.0 (10/13/16 12:27 PM) UA Spec Grav [<=1.030] 1.015 (10/13/16 12:27 PM) UA Glucose [Negative] Negative (10/13/16 12:27 PM) UA Blood [Negative] Negative (10/13/16 12:27 PM) UA Ketones [Negative] Negative *NA* (10/13/16 12:27 PM) UA Protein [Negative] Negative (10/13/16 12:27 PM) UA Urobilinogen [0.1-1.0 EU/dL] 0.2 EU/dL (10/13/16 12:27 PM) UA Bili [Negative] Moderate *ABN* (10/13/16 12:27 PM) UA Leuk Est [Negative] Negative (10/13/16 12:27 PM) UA Nitrite [Negative] Negative (10/13/16 12:27 PM) UA WBC [None Seen /HPF] 0-2 /HPF (10/13/16 12:27 PM) UA RBC [0-2 /HPF] 0-2 /HPF (10/13/16 12:27 PM) UA Bacteria [None Seen /HPF] Occasional /HPF (10/13/16 12:27 PM) UA Sq Epi [Few /LPF] Moderate /LPF *ABN* (10/13/16 12:27 PM) UA Mucus [None Seen] None Seen (10/13/16 12:27 PM) HEMATOLOGY Most recent to oldest [Reference Range]: 1 WBC [3.7-10.4 K/CMM] 10.2 K/CMM (10/13/16 12:27 PM) RBC [4.20-5.40 M/CMM] 4.28 M/CMM (10/13/16 12:27 PM) Hgb [12.0-16.0 g/dL] 11.8 g/dL *LOW* (10/13/16: PM) Hct [36.0-48.0 %] 36.1 % (10/13/16 12: PM) MCV [80.0-98.0 fL] 84.3 fL (10/13/16 12:27 PM) MCH [27.0-31.0 pg] 27.6 pg (10/13/16: PM) MCHC [32.0-36.0 g/dL] 32.8 g/dL (10/13/16 12:27 PM) RDW [11.5-14.5 %] 14.3 % (10/13/16 12: PM) Platelet [133-450 K/CMM] 310 K/CMM (10/13/16 12:27 PM) MPV [7.4-10.4 fL] 7.6 fL (10/13/16 12:27 PM) Segs [45.0-75.0 %] 75.5 % *HI* (10/13/16 12:27 PM) Lymphocytes [20.0-40.0 %] 15.3 % *LOW* (10/13/16: PM) Monocytes [2.0-12.0 %] 6.5 % (10/13/16 12:27 PM) Eosinophils [0.0-4.0 %] 1.7 % (10/13/16 12:27 PM) Basophils [0.0-1.0 %] 1.0 % (10/13/16 12:27 PM) Segs-Bands # [1.5-8.1 K/CMM] 7.7 K/CMM (10/13/16 12:27 PM) Lymphocytes # [1.0-5.5 K/CMM] 1.6 K/CMM (10/13/16 12:27 PM) Monocytes # [0.0-0.8 K/CMM] 0.7 K/CMM (10/13/16 12:27 PM) Eosinophils # [0.0-0.5 K/CMM] 0.2 K/CMM (10/13/16 12:27 PM) Basophils # [0.0-0.2 K/CMM] 0.1 K/CMM (10/13/16 12:27 PM) Immunizations No data available for this [...]
--- OUTSIDE RECORDS SUMMARY | 2018-06-24 08:56 | XMS REPORT | Summary of Care ---
:1955 Author Organization [facility] Address [address] [place] [address]- Encounter HQ Encntr_alias(FIN) [id number] Date(s): 09/20/16 - 09/21/[address] [place] [address]- [phone] Discharge Disposition: Home or Self Care Attending Physician: Shanti Simpson MD Referring Physician: Shanti Simpson MD Vital Signs No data available for this section Problem List Condition Effective Dates Status Health Status Informant Cardiac catheterization(Confirmed) Active Hyperlipemia(Confirmed) Active Hypertension(Confirmed) Active [place] (myocardial Active infarction)(Confirmed) OA (osteoarthritis)(Confirmed) Resolved Stent(Confirmed) [...]
--- OUTSIDE RECORDS SUMMARY | 2018-06-24 08:56 | XMS REPORT | Summary of Care ---
:1955 Author Organization [facility] Address [address] [address]- Encounter HQ Lia_arthur(TOMEKA) [id number] Date(s): 09/06/16 - 09/06/16 [facility] [address] [facility] [address] [place] [phone] Discharge Disposition: Home or Self Care Attending Physician: Shanti Simpson MD Referring Physician: Shanti Simpson MD Vital Signs Most recent to oldest [Reference Range]: 1 Height 160.02 cm (09/06/16 1:46 PM) Temperature Oral [96.4-99.1 DegF] 98.3 DegF (09/06/16 1:46 PM) Blood Pressure [90-140/60-90 mmHg] 122/88 mmHg (09/06/16 1:46 PM) Respiratory Rate [14-20 BRMIN] 20 BRMIN (09/06/16 1:46 PM) Peripheral Pulse Rate [60-100 bpm] 84 bpm (09/06/16 1:46 PM) Weight 117.727 kg (09/06/16 1:46 PM) Body Mass Index 45.98 m2 (09/06/16 1:46 PM) Problem List Condition Effective Dates Status Health Status Informant Cardiac catheterization(Confirmed) Active Hyperlipemia(Confirmed) Active Hypertension(Confirmed) Active [place] (myocardial Active infarction)(Confirmed) OA (osteoarthritis)(Confirmed) Resolved Stent(Confirmed) [...]
--- OUTSIDE RECORDS SUMMARY | 2018-06-24 08:56 | XMS REPORT | Summary of Care ---
:1955 Author Name CHRISSIE CARRILLO M.D. Address Unavailable Unavailable , Care Team Providers Name Role Phone Unavailable Unavailable Unavailable Unavailable Unavailable Unavailable Functional Status Name Dates Details Functional status health issues are not documented Status: Name Dates Details Cognitive status health issues are not documented Status: Problems Name Dates Details Osteoarthritis of left knee (715.96, M17.12) Status: Active Left lumbar radiculopathy (724.4, M54.16) Status: Active Medications Name Dates Details Medications not documented Allergies and Adverse Reactions Name Dates Details Allergy history not documented Status: Procedures Procedure Dates Details Procedures not documented Immunization Name Dates Details Immunizations not documented Social History Name Dates Details Unknown if ever smoked Vital Signs Date Test Result Details No Known Vitals to report Results Date Description Value Details Results not documented Plan of Care Name Dates Details Planned Observations Planned Goals not documented Instructions Name Dates Details Instructions not documented Encounters Appointment; CHRISSIE CARRILLO M.D. On: 17-Jan-2017 13:00 Encounter Diagnosis: Problem not documented
--- OUTSIDE RECORDS SUMMARY | 2018-06-24 08:56 | XMS REPORT | Summary of Care ---
:1955 Author Organization [facility] Address [address] [place], [place] [address]- Encounter HQ Encntr_alias(FIN) [id number] Date(s): 01/25/17 - 01/25/17 [facility] [address] [place] [address]- Discharge Disposition: Home or Self Care Attending Physician: Angelita Arellano MD Vital Signs No data available for this section Problem List Condition Effective Dates Status Health Status Informant Cardiac catheterization(Confirmed) Active Hyperlipemia(Confirmed) Active Hypertension(Confirmed) Active [place] (myocardial Active infarction)(Confirmed) OA (osteoarthritis)(Confirmed) Resolved Stent(Confirmed) [...]
--- OUTSIDE RECORDS SUMMARY | 2018-06-24 08:56 | XMS REPORT | Summary of Care ---
:1955 Author Organization [facility] Address [address] [place], [place] [address]- Encounter HQ Encntr_alias(FIN) [id number] Date(s): 01/18/17 - 01/18/17 [facility] [address] [place] [address]- Discharge Disposition: Home or Self Care Attending Physician: Nikko Jimenez MD Vital Signs No data available for this section Problem List Condition Effective Dates Status Health Status Informant Cardiac catheterization(Confirmed) Active Hyperlipemia(Confirmed) Active Hypertension(Confirmed) Active [place] (myocardial Active infarction)(Confirmed) OA (osteoarthritis)(Confirmed) Resolved Stent(Confirmed) [...]
--- OUTSIDE RECORDS SUMMARY | 2018-06-24 08:56 | XMS REPORT | Summary of Care ---
:1955 Author Organization [facility] Address [address] [place] [address]- Encounter HQ Naomintr_arthur(TOMEKA) [id number] Date(s): 10/14/16 - 10/17/16 [facility] [address] [place] [address]- [phone] Discharge Disposition: Home or Self Care Attending Physician: Ana Armando MD Admitting Physician: Ana Armando MD Vital Signs Most recent to oldest 1 2 3 [Reference Range]: Height 160.02 cm 160.02 cm (10/15/16 1:29 AM) (10/14/16 9:43 PM) Temperature Oral 98.3 DegF 98.2 DegF 97.9 DegF [96.4-99.1 DegF] (10/17/16 12:59 PM) (10/17/16 7:26 AM) (10/17/16 3:18 AM) Blood Pressure 162/88 mmHg 174/103 mmHg 182/107 mmHg [90-140/60-90 mmHg] *HI* *HI* *HI* (10/17/16 2:56 PM) (10/17/16 12:59 PM) (10/17/16 7:26 AM) Respiratory Rate [14-20 18 BRMIN 18 BRMIN 16 BRMIN BRMIN] (10/17/16 12:59 PM) (10/17/16 7:26 AM) (10/17/16 3:18 AM) Peripheral Pulse Rate 79 bpm 75 bpm 75 bpm [60-100 bpm] (10/17/16 2:56 PM) (10/17/16 12:59 PM) (10/17/16 7:26 AM) Weight 118.182 kg 117.727 kg (10/15/16 1:29 AM) (10/14/16 9:43 PM) Body Mass Index 46.15 m2 45.98 m2 (10/15/16 1:29 AM) (10/14/16 9:43 PM) Problem List Condition Effective Dates Status Health Status Informant Cardiac catheterization(Confirmed) Active Hyperlipemia(Confirmed) Active Hypertension(Confirmed) Active OK (myocardial Active infarction)(Confirmed) OA (osteoarthritis)(Confirmed) Resolved Stent(Confirmed) Active Allergies, Adverse Reactions, Alerts Substance Reaction Severity Status penicillins Active tetanus toxoid Active Medications acetaminophen 650 mg, 1 supp, Route: NH, Drug form: SUPP, Q4H, Dosing Weight 117.727, kg, PRN Pain 1-3/Temp > 100.4 F, Start date: 10/15/16 0:36:00 GREENHOUSE TECHNICIAN, Duration: 30 day, Stop date: 11/14/16 0:35:00 GREENHOUSE TECHNICIAN Notes: Max ccbhlrbdymtoq=1868 mg/day (4 gm/day). (Same as: Tylenol) Start Date: 10/15/16 Stop Date: 10/17/16 Status: DiscontinuedAmbien 5 mg, 1 tab, Route: PO, Drug form: TAB, Bedtime, PRN Insomnia, Start date: 10/15 3:18:00 GREENHOUSE TECHNICIAN, Duration: 30 day, Stop date: 11/14/16 3:17:00 GREENHOUSE TECHNICIAN Notes: (Same As: Ambien) Start Date: 10/15/16 Stop Date: 10/17/16 Status: Discontinuedatorvastatin 80 mg, 4 tab, Route: PO, Drug form: TAB, Daily, Dosing Weight 118.182, kg, Start date: 10/15/16 21:00:00 GREENHOUSE TECHNICIAN, Duration: 30 day, Stop date: 11/13/16 21:00: 00 GREENHOUSE TECHNICIAN Notes: (Same As: Lipitor) Start Date: 10/15/16 Stop Date: 10/17/16 Status: DiscontinuedcarBAMazepine 300 mg, 3 tab, Route: PO, Drug form: ERTAB, Bedtime, Dosing Weight 118.182, kg, Start date: 10/15/1621:00:00 GREENHOUSE TECHNICIAN, Stop date: 11/13/16 21:00:00 GREENHOUSE TECHNICIAN Notes: Do not crush or chew. (Same As: Tegretol XR) Start Date: 10/15/16 Stop Date: 10/17/16 Status: Discontinuedciprofloxacin 400 mg, 200 mL, Route: IVPB, Drug form: INJ, [id number], Dosing Weight 117.727, kg , Priority: NOW, Start date: 10/15/16 0:38:00 GREENHOUSE TECHNICIAN, Duration: 30 day, Stop date: 11/13/16 13:00:00 GREENHOUSE TECHNICIAN Notes: Do not refrigerate Start Date: 10/15/16 Stop Date: 10/16/16 Status: KewrozxaeibpD5I 1/2NS 1,000 mL 1,000 mL, Rate: 125 ml/hr, Infuse over: 8 hr, Route: IV, Dosing Weight 117.727 kg, Total Volume: 1,000, Start date: 10/15/16 0:36:00 GREENHOUSE TECHNICIAN, Duration: 30 day, Stop date: 11/14/16 0:35:00 GREENHOUSE TECHNICIAN Start Date: 10/15/16 Stop Date: 10/17/16 Status: DiscontinuedDextrose 5% with 0.45% NaCl IV 1000 mL 1,000 mL, Rate: 125 ml/hr, Infuse over: 8 hr, Route: IV, Dosing Weight 117.727 kg, Total Volume: 1,000, Start date: 10/15/16 0:39:00 GREENHOUSE TECHNICIAN, Duration: 30 day, Stop date: 11/14/16 0:38:00 GREENHOUSE TECHNICIAN Start Date: 10/15/16 Stop Date: 10/15/16 Status: Discontinueddiazepam 2 mg, 1 tab, Route: PO, Drug form: TAB, BID, Dosing Weight 118.182, kg, PRN Anxiety, Start date: 10/16/16 8:27:00 GREENHOUSE TECHNICIAN, Duration: 30 day, Stop date: 8:26:00 GREENHOUSE TECHNICIAN Notes: (Same as: Valium) Start Date: 10/16/16 Stop Date: 10/17/16 Status: DiscontinuedDilaudid 0.5 mg, 0.25 mL, Route: IVP, Drug form: INJ, Q6H, Dosing Weight 118.182, kg, PRN Pain Score 7-10, ifmorphine is not working, Priority: STAT, Start date: 9:29:00 GREENHOUSE TECHNICIAN, Duration: 30 day, Stop date: 11/14/16 9:28:00 GREENHOUSE TECHNICIAN Notes: Same as Dilaudid Start Date: 10/15/16 Stop Date: 10/15/16 Status: DiscontinuedEffient 10 mg, 1 tab, Route: PO, Drug form: TAB, Daily, Dosing Weight 118.182, kg, Start date: 10/15/16 9:00:00 GREENHOUSE TECHNICIAN, Duration: 30 day, Stop date: 11/13/16 9:00:00 GREENHOUSE TECHNICIAN Notes: Same as Effient For patients < 75 years old, > 60kg, without history of TIA/Ischemic stroke and without likely bypass surgery Start Date: 10/15/16 Stop Date: 10/17/16 Status: DiscontinuedFlagyl 500 mg, 100 mL, Route: IVPB, Drug form: INJ, ABXQ6H, Dosing Weight 117.727, kg, Priority: NOW, Startdate: 10/15/16 0:38:00 GREENHOUSE TECHNICIAN, Duration: 30 day, Stop date: 20:00:00 GREENHOUSE TECHNICIAN Notes: (Same as: Flagyl) Avoid alcohol. Start Date: 10/15/16 Stop Date: 10/16/16 Status: DiscontinuedImdur 60 mg, 1 tab, Route: PO, Drug form: ERTAB, QAM, Dosing Weight 118.182, kg, Start date: 10/16/16 9:00:00 GREENHOUSE TECHNICIAN, Duration: 30 day, Stop date: 11/14/16 9:00:00 GREENHOUSE TECHNICIAN Notes: (Same as:Imdur)"Do Not Crush" Take on empty stomach/ full glass of water. Do not crush Start Date: 10/16/16 Stop Date: 10/17/16 Status: DiscontinuedLevaquin 750 mg, 150 mL, Route: IV, Drug form: SOLN, [id number], Start date: 10/16/16 11:30: 00 GREENHOUSE TECHNICIAN, Duration: 30day, Stop date: 11/14/16 11:30:00 GREENHOUSE TECHNICIAN Notes: (Same as:Levaquin) Start Date: 10/16/16 Stop Date: 10/17/16 Status: DiscontinuedLovenox 40 mg, 0.4 mL, Route: SUB-Q, Drug form: INJ, [id number], Dosing Weight 118.182, kg , Start date: 10/16/16 9:00:00 GREENHOUSE TECHNICIAN, Duration: 30 day, Stop date: 11/14/16 9:00: 00 GREENHOUSE TECHNICIAN Notes: (Same as: Lovenox) Start Date: 10/16/16 Stop Date: 10/17/16 Status: DiscontinuedLunesta 3 mg, Route: PO, Drug form: TAB, Bedtime, Dosing Weight 118.182, kg, PRN Insomnia, Start date: 10/15/16 3:10:00 GREENHOUSE TECHNICIAN, Duration: 30 day, Stop date: 3:09:00 GREENHOUSE TECHNICIAN Start Date: 10/15/16 Stop Date: 10/15/16 Status: DeletedLunesta 3 mg, Route: PO, Drug form: TAB, Bedtime, Dosing Weight 118.182, kg, PRN Insomnia, Start date: 10/16/16 8:27:00 GREENHOUSE TECHNICIAN, Duration: 30 day, Stop date: 8:26:00 GREENHOUSE TECHNICIAN Start Date: 10/16/16 Stop Date: 10/16/16 Status: Deletedmorphine Sulfate 2 mg, 1 mL, Route: IVP, Drug form: SOLN, ONCE, Dosing Weight 118.182, kg, Start date: 10/15/16 2:19:00 GREENHOUSE TECHNICIAN, Stop date: 10/15/16 2:19:00 GREENHOUSE TECHNICIAN Start Date: 10/15/16 Stop Date: 10/15/16 Status: Completedmorphine Sulfate 2 mg, 1 mL, Route: IVP, Drug form: SOLN, Q3H, Dosing Weight 117.727, kg, PRN Pain Score 7-10, Start date: 10/15/16 0:36:00 GREENHOUSE TECHNICIAN, Duration: 30 day, Stop date: 11/14/16 0:35:00 GREENHOUSE TECHNICIAN Start Date: 10/15/16 Stop Date: 10/17/16 Status: Discontinuedmoxifloxacin 400 mg, Route: IVPB, [id number], Dosing Weight 118.182, kg, Start date: 10/16/16 9: 00:00 GREENHOUSE TECHNICIAN, Duration:30 day, Stop date: 11/14/16 9:00:00 GREENHOUSE TECHNICIAN Start Date: 10/16/16 Stop Date: 10/16/16 Status: Deletedmoxifloxacin 400 mg oral tablet 400 mg=1 tab, PO, Daily, X 10 day, # 10 tab, 0 Refill(s), Pharmacy: [facility] [id number] Start Date: 10/17/16 Stop Date: 10/27/16 Status: Orderednitroglycerin 0.4 mg sublingual tablet 0.4 mg, 1 tab, Route: SL, Drug form: TAB, Q5Min, Dosing Weight 118.182, kg, PRN Chest Pain, Start date: 10/15/16 3:10:00 GREENHOUSE TECHNICIAN, Duration: 30 day, Stop date: 11/14 3:09:00 GREENHOUSE TECHNICIAN Notes: (Same as:Nitroquick, Nitrostat)"Do Not Crush" Sublingual tablet Start Date: 10/15/16 Stop Date: 10/17/16 Status: Discontinuedondansetron 4 mg, Route: IVP, Drug form: INJ, ONCE, Dosing Weight 117.727, kg, Priority: STAT, Start date: 10/14/16 22:17:00 GREENHOUSE TECHNICIAN, Stop date: 10/14/16 22:17:00 GREENHOUSE TECHNICIAN Start Date: 10/14/16 Stop Date: 10/15/16 Status: Completedondansetron 4 mg, 2 mL, Route: IVP, Drug form: INJ, Q6H, Dosing Weight 117.727, kg, PRN Nausea & Vomiting, Start date: 10/15/16 0:36:00 GREENHOUSE TECHNICIAN, Duration: 30 day, Stop date: 11/14/16 0:35:00 GREENHOUSE TECHNICIAN Notes: (Same as: Liza) MEDICATION WASTE Product Size: 4 mgProduct Wasted: _0__ mg Start Date: 10/15/16 Stop Date: 10/17/16 Status: Discontinuedpantoprazole 40 mg + BD Normal Saline Flush 10 mL Route: IVP, Daily, Dosing Weight 117.727, kg, Priority: NOW, Start date: 0:45:00 GREENHOUSE TECHNICIAN, Duration: 30 day, Stop date: 11/13/16 16:30:00 GREENHOUSE TECHNICIAN Notes: For IV push reconstitute with 10 ml 0.9% sodium chloride and push over 2 minutes. (Same as: Protonix) Start Date: 10/15/16 Stop Date: 10/15/16 Status: Discontinuedpantoprazole 40 mg oral enteric coated tablet 40 mg=1 tab, PO, Daily, # 30 tab, 1 Refill(s), Pharmacy: [facility] [id number] Start Date: 10/17/16 Status: OrderedPhenergan 12.5 mg, Route: IV Central, Q6H, Dosing Weight 118.182, kg, PRN Nausea & Vomiting, Priority: STAT, Start date: 10/15/16 9:30:00 GREENHOUSE TECHNICIAN, Duration: 30 day, Stop date: 11/14/16 9:29:00 GREENHOUSE TECHNICIAN Start Date: 10/15/16 Stop Date: 10/15/16 Status: DiscontinuedPhenergan + sodium chloride 0.9% 50ml non PVC bag 50 mL 12.5 mg, 0.5 mL, Route: IV Central, Q6H, Dosing Weight 118.182, kg, PRN Nausea & amp; Vomiting, Startdate: 10/15/16 10:03:00 GREENHOUSE TECHNICIAN, Duration: 30 day, Stop date: 10:02:00 GREENHOUSE TECHNICIAN Notes: Do not give IV push. (Same as: Phenergan) Start Date: 10/15/16 Stop Date: 10/15/16 Status: Discontinuedpramipexole 0.25 mg, 1 tab, Route: PO, Drug form: TAB, TID, Dosing Weight 118.182, kg, Start date: 10/15/16 9:00:00 GREENHOUSE TECHNICIAN, Duration: 30 day, Stop date: 11/13/16 17:00: 00 GREENHOUSE TECHNICIAN Notes: (Same as: Mirapex) Start Date: 10/15/16 Stop Date: 10/17/16 Status: DiscontinuedProtonix 40 mg, Route: IVP, Drug form: INJ, Before Dinner, Dosing Weight 118.182, kg, Start date: 10/15/16 16:30:00 GREENHOUSE TECHNICIAN, Duration: 30 day, Stop date: 11/13/16 16:30: 00 GREENHOUSE TECHNICIAN Notes: For IV push reconstitute with 10 ml 0.9% sodium chloride and push over 2 minutes. (Same as: Protonix) Start Date: 10/15/16 Stop Date: 10/15/16 Status: DiscontinuedProtonix 40 mg + BD Normal Saline Flush 10 mL Route: IVP, BID-Before Meals, Dosing Weight 118.182, kg, Start date: 10/16/16 7: 30:00 GREENHOUSE TECHNICIAN, Duration:30 day, Stop date: 11/14/16 16:30:00 GREENHOUSE TECHNICIAN Notes: For IV push reconstitute with 10 ml 0.9% sodium chloride and push over 2 minutes. (Same as: Protonix) Start Date: 10/16/16 Stop Date: 10/17/16 Status: DiscontinuedSaline Flush 0.9% 10 ml, Route: IVP, Drug Form: INJ, Dosing Weight 117.727, kg, PRN, PRN Line Flush, Start date: 10/15/16 0:36:00 GREENHOUSE TECHNICIAN, Duration: 30 day, Stop date: 11/14/16 0 :35:00 GREENHOUSE TECHNICIAN Notes: (Same as: BD Posiflush) Start Date: 10/15/16 Stop Date: 10/17/16 Status: DiscontinuedSodium Chloride 0.9% (Bolus) IV 1,000 mL, 2,000 ml/hr, Infuse Over: 30 minutes, Route: IV, ONCE, Priority: STAT , Dosing Weight 117.727 kg, Start date: 10/14/16 22:17:00 GREENHOUSE TECHNICIAN, Duration: 1 doses or times, Stop date: 10/14/16 22:17:00 GREENHOUSE TECHNICIAN Start Date: 10/14/16 Stop Date: 10/15/16 Status: CompletedSodium Chloride 0.9% IV 25 mL, Route: IV, Start date: 10/15/16 0:54:00 GREENHOUSE TECHNICIAN, Duration: 30 day, Stop date : 11/14/16 0:53:00 GREENHOUSE TECHNICIAN, PRN Line Flush Start Date: 10/15/16 Stop Date: 10/17/16 Status: Discontinuedspironolactone 25 mg, 1 tab, Route: PO, Drug form: TAB, Daily, Dosing Weight 118.182, kg, Start date: 10/16/16 9:00:00 GREENHOUSE TECHNICIAN, Duration: 30 day, Stop date: 11/14/16 9:00:00 GREENHOUSE TECHNICIAN Notes: (Same As: Aldactone) Start Date: 10/16/16 Stop Date: 10/17/16 Status: Discontinuedsucralfate 1 gm, 1 tab, Route: PO, Drug form: TAB, QID, Dosing Weight 118.182, kg, Start date: 10/15/16 17:00:00 GREENHOUSE TECHNICIAN, Duration: 30 day, Stop date: 11/14/16 13:00:00 GREENHOUSE TECHNICIAN Notes: May interfere w/enteral feeds - Take 1 hr before or 2 hr after antacids , dairy pdt, meals & minerals - On empty stomach.For patients unable to swallow tablet, dissolve in 10mL - 30mL of water or juice and stir before giving. (Same As: Carafate) Start Date: 10/15/16 Stop Date: 10/17/16 Status: DiscontinuedTylenol 650 mg, 2 tab, Route: PO, Drug form: TAB, Q6H, Dosing Weight 118.182, kg, PRN Pain 1-3/Temp > 100.4 F, Start date: 10/17/16 13:12:00 GREENHOUSE TECHNICIAN, Duration: 30 day, Stop date: 11/16/16 13:11:00 GREENHOUSE TECHNICIAN Notes: Do not exceed 4 gm/day. (Same as: Tylenol) Start Date: 10/17/16 Stop Date: 10/17/16 Status: Discontinuedvalsartan 320 mg, 2 tab, Route: PO, Drug form: TAB, ONCE, Dosing Weight 118.182, kg, Start date: 10/17/16 13:11:00 GREENHOUSE TECHNICIAN, Stop date: 10/17/16 13:11:00 GREENHOUSE TECHNICIAN Notes: Same as Sang Start Date: 10/17/16 Stop Date: 10/17/16 Status: Completedvalsartan 320 mg, 2 tab, Route: PO, Drug form: TAB, Daily, Dosing Weight 118.182, kg, Start date: 10/18/16 9:00:00 GREENHOUSE TECHNICIAN, Duration: 30 day, Stop date: 11/16/16 9:00:00 GREENHOUSE TECHNICIAN Notes: Same as Sang Start Date: 10/18/16 Stop Date: 10/17/16 Status: Canceled Results ELECTROLYTES Most recent to oldest [Reference Range]: 1 2 Sodium Lvl [135-145 mEq/L] 143 mEq/L 141 mEq/L (10/16/16 4:18 AM) (10/14/16 11:22 PM) Potassium Lvl [3.5-5.1 mEq/L] 3.6 mEq/L 3.9 mEq/L (10/16/16 4:18 AM) (10/14/16 11:22 PM) Chloride Lvl [95-109 mEq/L] 102 mEq/L 100 mEq/L (10/16/16 4:18 AM) (10/14/16 11:22 PM) CO2 [24-32 mEq/L] 34 mEq/L 35 mEq/L *HI* *HI* (10/16/16 4:18 AM) (10/14/16 11: PM) AGAP [10.0-20.0 mEq/L] 10.6 mEq/L 9.9 mEq/L (10/16/16 4:18 AM) *LOW* (10/14/16 11: PM) CHEM PANEL Most recent to oldest [Reference Range]: 1 2 Creatinine Lvl [0.50-1.40 mg/dL] 0.90 mg/dL 0.85 mg/dL (10/16/16 4:18 AM) (10/14/16 11:22 PM) eGFR 70 mL/min/1.73m2 1 75 mL/min/1.73m2 2 *NA* *NA* (10/16/16 4:18 AM) (10/14/16: PM) BUN [7-22 mg/dL] 6 mg/dL 8 mg/dL *LOW* (10/14/16 11:22 PM) (10/16/16 4:18 AM) B/C Ratio [6-25] 9 (10/14/16: PM) Glucose Lvl [70-99 mg/dL] 108 mg/dL 106 mg/dL *HI* *HI* (10/16/16 4:18 AM) (10/14/16: PM) Total Protein [6.4-8.4 g/dL] 7.0 g/dL (10/14/16: PM) Albumin Lvl [3.5-5.0 g/dL] 2.9 g/dL *LOW* (10/14/16 11:22 PM) Globulin [2.7-4.2 g/dL] 4.1 g/dL (10/14/16: PM) A/G Ratio [0.7-1.6] 0.7 (10/14/16 11:22 PM) Calcium Lvl [8.5-10.5 mg/dL] 8.4 mg/dL 9.1 mg/dL *LOW* (10/14/16 11:22 PM) (10/16/16 4:18 AM) ALT [0-65 unit/L] 18 unit/L (10/14/16 11:22 PM) AST [0-37 unit/L] 18 unit/L (10/14/16 11:22 PM) Alk Phos [39-136 unit/L] 108 unit/L (10/14/16 11: PM) Bili Total [0.2-1.3 mg/dL] 0.4 mg/dL (10/14/16 11:22 PM) Lipase Lvl [73-393 unit/L] 71 unit/L *LOW* (10/14/16 11: PM) 1Result Comment: The eGFR is calculated [...] eGFR should be multiplied by the estimated BMI.2Result Comment: The eGFR is calculated using the CKD-EPI formula. In most young, healthy individualsthe eGFR will be >90 mL/ min/1.73m2. The [...] eGFR should be multiplied by the estimated BMI.HEMATOLOGY Most recent to oldest [Reference Range]: 1 2 WBC [3.7-10.4 K/CMM] 9.1 K/CMM 9.9 K/CMM (10/16/16 4:18 AM) (10/14/16: PM) RBC [4.20-5.40 M/CMM] 3.47 M/CMM 3.71 M/CMM *LOW* *LOW* (10/16/16 4:18 AM) (10/14/16: PM) Hgb [12.0-16.0 g/dL] 9.7 g/dL 10.5 g/dL *LOW* *LOW* (10/16/16 4:18 AM) (10/14/16: PM) Hct [36.0-48.0 %] 30.0 % 31.4 % *LOW* *LOW* (10/16/16 4:18 AM) (10/14/16: PM) MCV [80.0-98.0 fL] 86.4 fL 84.6 fL (10/16/16 4:18 AM) (10/14/16: PM) MCH [27.0-31.0 pg] 28.0 pg 28.4 pg (10/16/16 4:18 AM) (10/14/16: PM) MCHC [32.0-36.0 g/dL] 32.4 g/dL 33.6 g/dL (10/16/16 4:18 AM) (10/14/16: PM) RDW [11.5-14.5 %] 13.8 % 13.9 % (10/16/16 4:18 AM) (10/14/16: PM) Platelet [133-450 K/CMM] 255 K/CMM 287 K/CMM (10/16/16 4:18 AM) (10/14/16:22 PM) MPV [7.4-10.4 fL] 7.7 fL 7.8 fL (10/16/16 4:18 AM) (10/14/16:22 PM) Segs [45.0-75.0 %] 58.1 % 67.8 % (10/16/16 4:18 AM) (10/14/16:22 PM) Lymphocytes [20.0-40.0 %] 31.0 % 23.7 % (10/16/16 4:18 AM) (10/14/16 11:22 PM) Monocytes [2.0-12.0 %] 10.0 % 7.8 % (10/16/16 4:18 AM) (10/14/16 11:22 PM) Eosinophils [0.0-4.0 %] 0.4 % 0.4 % (10/16/16 4:18 AM) (10/14/16 11:22 PM) Basophils [0.0-1.0 %] 0.5 % 0.3 % (10/16/16 4:18 AM) (10/14/16 11:22 PM) Segs-Bands # [1.5-8.1 K/CMM] 5.3 K/CMM 6.7 K/CMM (10/16/16 4:18 AM) (10/14/16 11:22 PM) Lymphocytes # [1.0-5.5 K/CMM] 2.8 K/CMM 2.4 K/CMM (10/16/16 4:18 AM) (10/14/16 11:22 PM) Monocytes # [0.0-0.8 K/CMM] 0.9 K/CMM 0.8 K/CMM *HI* (10/14/16 11:22 PM) (10/16/16 4:18 AM) Basophils # [0.0-0.2 K/CMM] 0.1 K/CMM (10/16/16 4:18 AM) Immunizations No data available for this section [...] No Assessment and Plan Extracted from: Title: Clinical Document Author: Javier Walker MD Date: 10/15/16 [id number]
--- OUTSIDE RECORDS SUMMARY | 2018-06-24 08:56 | XMS REPORT | Summary of Care ---
:1955 Author Organization [facility] Address [address] [address]- Encounter HQ Lia_arthur(FIN) [id number] Date(s): 01/31/17 - 01/31/17 [facility] [address] [facility] [address] [place] [phone] Discharge Disposition: Home or Self Care Attending Physician: Shanti Simpson MD Referring Physician: Shanti Simpson MD Vital Signs Most recent to oldest [Reference Range]: 1 Height 160.02 cm (01/31/17 1:51 PM) Temperature Oral [96.4-99.1 DegF] 97.8 DegF (01/31/17 1:51 PM) Blood Pressure [90-140/60-90 mmHg] 128/85 mmHg (01/31/17 1:51 PM) Respiratory Rate [14-20 BRMIN] 20 BRMIN (01/31/17 1:51 PM) Peripheral Pulse Rate [60-100 bpm] 87 bpm (01/31/17 1:51 PM) Weight 112.727 kg (01/31/17 1:51 PM) Body Mass Index 44.02 m2 (01/31/17 1:51 PM) Problem List Condition Effective Dates Status Health Status Informant Cardiac catheterization(Confirmed) Active Hyperlipemia(Confirmed) Active Hypertension(Confirmed) Active [place] (myocardial Active infarction)(Confirmed) OA (osteoarthritis)(Confirmed) Resolved Stent(Confirmed) Active Allergies, Adverse Reactions, Alerts Substance Reaction Severity Status penicillins Active tetanus toxoid Active Medications atorvastatin 80 mg oral tablet 80 mg=1 tab, PO, Daily, # 30 tab, 0 Refill(s), Pharmacy: [facility] [id number] Start Date: 01/31/17 Status: OrderedEffient 10 mg oral tablet 10 mg=1 tab, PO, Daily, # 30 tab, 11 Refill(s), Pharmacy: [email or web address] [id number] Start Date: 01/31/17 Status: OrderedImdur 60 mg oral tablet, extended release 60 mg=1 tab, PO, QAM, # 30 tab, 11 Refill(s), Pharmacy: [email or web address] [id number] Start Date: 01/31/17 Status: Orderedspironolactone 25 mg oral tablet 25 mg=1 tab, PO, Daily, # 30 tab, 11 Refill(s), [facility]acy: [facility] [id number] Start Date: 01/31/17 Status: Orderedvalsartan 320 mg oral tablet 320 mg=1 tab, PO, Daily, # 30 tab, 11 Refill(s), [facility]: [email or web address] [id number] Start Date: 01/31/17 Status: Ordered Results No data available for [...]
--- OUTSIDE RECORDS SUMMARY | 2018-06-24 08:56 | XMS REPORT | Summary of Care ---
:1955 Author Organization [facility] Address [address] [place] [address]- Encounter HQ Encntr_alijoann(FIN) [id number] Date(s): 01/04/17 - 01/04/17 [facility] [address] [place] [address]- Discharge Diagnosis: Acute pain of both knees Discharge Diagnosis: Effusion of knee joint, left Discharge Disposition: Home or Self Care Attending Physician: Jason Butler DO Vital Signs Most recent to oldest [Reference Range]: 1 2 Height 160.02 cm (01/04/17 12:07 PM) Temperature Oral [96.4-99.1 DegF] 97.9 DegF 97.5 DegF (01/04/17 2:12 PM) (01/04/17 12:07 PM) Blood Pressure [90-140/60-90 mmHg] 144/61 mmHg 152/78 mmHg *HI* *HI* (01/04/17 2:12 PM) (01/04/17 12:07 PM) Respiratory Rate [14-20 BRMIN] 18 BRMIN 18 BRMIN (01/04/17 2:12 PM) (01/04/17 12:07 PM) Peripheral Pulse Rate [60-100 bpm] 59 bpm 69 bpm *LOW* (01/04/17 12:07 PM) (01/04/17 2:12 PM) Weight 119.545 kg (01/04/17 12:07 PM) Body Mass Index 46.69 m2 (01/04/17 12:07 PM) Problem List Condition Effective Dates Status Health Status Informant Cardiac catheterization(Confirmed) Active Hyperlipemia(Confirmed) Active Hypertension(Confirmed) Active [place] (myocardial Active infarction)(Confirmed) OA (osteoarthritis)(Confirmed) Resolved Stent(Confirmed) Active Allergies, Adverse Reactions, Alerts Substance Reaction Severity Status penicillins Active tetanus toxoid Active Medications BD Normal Saline Flush 10 mL, Route: IV, Drug Form: INJ, PRN, PRN Line Flush, Start date: 01/04/17 12: 28:00 CDT, Duration: 30 day, Stop date: 02/03/17 12:27:00 CDT Notes: (Same as: BD Posiflush) Start Date: 01/04/17 Stop Date: 01/04/17 Status: DiscontinuedMedrol Dosepak 4 mg oral tablet See Instructions, PO, Take by mouth as directed on label., # 1 Pack, 0 Refill(s) Start Date: 01/04/17 Stop Date: 01/10/17 Status: OrderedMotrin 600 mg, Route: PO, Drug form: TAB, ONCE, Dosing Weight 119.545, kg, Priority: STAT, Start date: 01/04/17 12:15:00 CDT, Stop date: 01/04/17 12:15:00 CDT Start Date: 01/04/17 Stop Date: 01/04/17 Status: Completednaproxen 250 mg oral tablet 250 mg=1 tab, PO, BID, X 7 day, # 14 tab, 0 Refill(s) Start Date: 01/04/17 Stop Date: 01/11/17 Status: OrderedNorco 5/325 oral tablet 1 tab, PO, Q6H, X 5 day, # 20 tab, 0 Refill(s) Start Date: 01/04/17 Stop Date: 01/09/17 Status: Ordered Results No data available for [...]
[2018-06-24 09:45] LABS: Absolute Lymphocytes (CBC) 1.7 K/uL (0.7-4.9); Absolute Monocytes 1.1 K/uL (0.1-1.3); Absolute Neutrophil 7.6 K/uL (1.8-8.0); Basophils % 0.4 % (0-1.3); Eosinophils % 0.6 % (0-4.4); Hematocrit 40.3 % (36.0-45.0); Lymphocytes % 16.4 % (15.3-44.8); MCH 29.1 pg (27.0-35.0); MCV 85.5 fL (80-100); MPV 7.9 fL (7.6-11.3); Monocytes % 10.4 % (3.3-12.3); RBC Red Blood Cell Count 4.72 M/uL (3.86-4.86)
[2018-06-24 09:49] LABS: Protime INR 1.15
[2018-06-24 10:07] LABS: ALT/SGPT 18 U/L (12-78); AST/SGOT 15 U/L (15-37); Albumin 3.3 g/dL (3.4-5.0); Alkaline Phosphatase 112 U/L (45-117); BUN Blood Urea Nitrogen 9 mg/dL (7-18); Bicarbonate 34 mmol/L (21-32); Bilirubin Direct 0.1 mg/dL (0-0.2); Bilirubin Total 0.4 mg/dL (0.2-1.0); CKMB Creatine Kinase MB < 1.0 ng/mL (0.3-3.6); Creatine Phosphokinase 168 U/L (26-192); Glucose Level 112 mg/dL (74-106); Magnesium 1.9 mg/dL (1.8-2.4); NT PRO-BNP 1677 pg/mL (<125); Potassium 3.9 mmol/L (3.5-5.1); Protein, Total 7.7 g/dL (6.4-8.2); Sodium Level 139 mmol/L (136-145); Troponin (Emerg Dept Use Only) 0.04 ng/mL (0.0-0.045)
--- NOTE | 2018-06-24 10:31 | RAD REPORT ---
EXAM DESCRIPTION: Gloria Single View06/24/2018 9:35 am CLINICAL HISTORY: Cough;Chest pain COMPARISON: No comparisons FINDINGS: The lungs appear clear of acute infiltrate. The heart is borderline enlarged IMPRESSION: No acute abnormalities displayed
[2018-06-24] MEDS ORDERED: NITROGLYCERIN 0.4 MG/TAB SL ONE (10:36)
[2018-06-24] MEDS ORDERED: ASPIRIN 325 MG TAB ONE (10:36)
--- NOTE | 2018-06-24 11:55 | ER ---
Nurse's Notes [facility] Name: Torie Cooper Age: 63 yrs Sex: Female : 1955 Arrival Date: 06/24/2018 Time: 08:53 Bed 13 Private MD: None, None Diagnosis: Unstable angina Presentation: 06/24 08:57 Risk Assessment: Do you want to hurt yourself or someone else? Patient reports no hj desire to harm self or others. Initial Sepsis Screen: Does the patient meet any 2 criteria?. Initial Sepsis Screen: Does the patient have a suspected source of infection? No. Patient's initial sepsis screen is negative. 08:57 Care prior to arrival: None. 08:57 Presenting complaint: Patient states: i started having cough and fever that started 5 hj days ago; reports fever and chills;. 08:57 Acuity: RODRIGO 3 hj 08:57 Transition of care: patient was not received from another setting of care. Onset of symptoms was June 24, 2018. 08:57 Method Of Arrival: Ambulatory Triage Assessment: 08:57 General: Appears in no apparent distress. uncomfortable, obese, Behavior is calm, hj cooperative, appropriate for age. Pain: Complains of pain in chest. EENT: No signs and/or symptoms were reported regarding the EENT system. Neuro: Level of Consciousness is awake, alert, obeys commands, Oriented to person, place, time, situation, Appropriate for age. Cardiovascular: Capillary refill < 3 seconds Patient's skin is warm and dry. Respiratory: Airway is patent Respiratory effort is even, unlabored, Respiratory pattern is regular, symmetrical, Breath sounds with crackles. GI: No signs and/or symptoms were reported involving the gastrointestinal system. : No signs and/or symptoms were reported regarding the genitourinary system. Derm: No signs and/or symptoms reported regarding the dermatologic system. Musculoskeletal: No signs and/or symptoms reported regarding the musculoskeletal system. Historical: - Allergies: 08:57 Tetanus Vaccines \T\ Toxoid; 08:57 PENICILLINS; hj - Home Meds: 08:57 nitroglycerin 0.4 mg SL subl 1 tab [Active]; losartan 100 mg oral tab 1 tab once daily hj [Active]; prasugrel oral oral 1 tab [Active]; hydrochlorothiazide 12.5 mg Oral cap 1 cap once daily [Active]; isosorbide mononitrate 30 mg Oral Tb24 1 tab once daily [Active]; prednisolone 5 mg/5 mL Oral soln 5 mL once daily [Active]; pyidostgamine [Active]; diazepam 2 mg Oral tab 1 tab 3 times per day [Active]; Wellbutrin SR 150 mg Oral TbER 1 tab three times a day [Active]; trazodone 100 mg Oral tab 1 tab 3 times per day [Active]; Lexapro 20 mg Oral tab 1 tab once daily [Active]; Effient 10 mg oral tab 1 tab once daily [Active]; - PMHx: 08:57 Angina; myasthenia gravis; PTSD; Depression; [place]; hj - PSHx: 08:57 Appendectomy; Heart stents; gastric stapples; hj - Immunization history:: Adult Immunizations up to date. - Social history:: Smoking status: Patient/guardian denies using tobacco, Patient/guardian denies using alcohol. - Ebola Screening: : Patient negative for fever greater than or equal to 101.5 degrees Fahrenheit, and additional compatible Ebola Virus Disease symptoms Patient denies exposure to infectious person Patient denies travel to an Ebola-affected area in the 21 days before illness onset. Screenin:57 Abuse screen: Denies threats or abuse. Denies injuries from another. Nutritional hj screening: No deficits noted. Tuberculosis screening: No symptoms or risk factors identified. Fall Risk None identified. Assessment: 08:37 Pain: Pain does not radiate. Pain began 2-3 days ago. hj 08:37 General: Appears in no apparent distress. uncomfortable, Behavior is calm, cooperative, hj appropriate for age. Neuro: Level of Consciousness is awake, alert, obeys commands, Oriented to person, place, time, situation, Appropriate for age. Cardiovascular: Reports chest pain, Heart tones S1 S2 present Capillary refill < 3 seconds Patient's skin is warm and dry. Respiratory: Airway is patent Respiratory effort is even, unlabored, Respiratory pattern is regular, symmetrical. GI: No signs and/or symptoms were reported involving the gastrointestinal system. : No signs and/or symptoms were reported regarding the genitourinary system. EENT: No signs and/or symptoms were reported regarding the EENT system. Derm: No signs and/or symptoms reported regarding the dermatologic system. Musculoskeletal: No signs and/or symptoms reported regarding the musculoskeletal system. 09:30 Reassessment: Patient and/or family updated on plan of care and expected duration. Pain hj level reassessed. Patient is alert, oriented x 3, equal unlabored respirations, skin warm/dry/pink. Patient states feeling better. 10:30 Reassessment: Patient and/or family updated on plan of care and expected duration. Pain hj level reassessed. Patient is alert, oriented x 3, equal unlabored respirations, skin warm/dry/pink. awaiting results and POC;. 11:27 Reassessment: Patient and/or family updated on plan of care and expected duration. Pain hj level reassessed. Patient is alert, oriented x 3, equal unlabored respirations, skin warm/dry/pink. provider in room for POC;. 12:44 Reassessment: Patient and/or family updated on plan of care and expected duration. Pain hj level reassessed. Patient is alert, oriented x 3, equal unlabored respirations, skin warm/dry/pink. awaiting room placement;. 13:40 Reassessment: Patient and/or family updated on plan of care and expected duration. Pain hj level reassessed. Patient is alert, oriented x 3, equal unlabored respirations, skin warm/dry/pink. awaiting a return call from 2nd floor RN for report;. Vital Signs: 08:57 BP 133 / 96; Pulse 84; Resp 20; Temp 97.9(TE); Pulse Ox 96% on R/A; Weight 104.78 kg; Height 5 ft. 3 in. (160.02 cm); Pain /10; 09:30 BP 117 / 90; Pulse 82; Resp 18; Pulse Ox 97% on 2 lpm NC; 10:42 BP 143 / 79; Pulse 81; Resp 18; Pulse Ox 97% on 2 lpm NC; 11:47 BP 185 / 75; Pulse 68; Resp 18; Pulse Ox 98% on 2 lpm NC; 12:45 BP 135 / 77; Pulse 72; Resp 18; Pulse Ox 99% on R/A; 13:36 BP 103 / 77; Pulse 78; Resp 18; Pulse Ox 98% on R/A; 5 08:57 Body Mass Index 40.92 (104.78 kg, 160.02 cm) hj ED Course: 08:37 Patient maintains SpO2 saturation greater than 95% on room air. hj 08:37 No provider procedures requiring assistance completed. hj 08:53 Patient arrived in ED. mr 08:53 None, None is Private Physician. mr 08:56 Eloy Kulkarni, RN is Primary Nurse. hj 08:57 Arm band placed on. hj 08:58 Travis Rolon, SARAH is PHCP. pm1 08:58 South Castillo MD is Attending Physician. pm1 09:25 Radiology exam delayed due to IV insertion attempt and/or patient not having jb2 appropriate IV at this time. 09:34 X-ray completed. Portable x-ray completed in exam room. Patient tolerated procedure ml well. 09:34 XRAY Chest (1 view) In Process Unspecified. EDMS 09:45 Initial lab(s) drawn, by me, sent to lab. First set of blood cultures drawn Second set mh5 of blood cultures drawn by me. 09:52 Inserted saline lock: 20 gauge in right antecubital area, using aseptic technique. mh5 Blood collected. 09:53 Patient has correct armband on for positive identification. Placed in gown. Bed in low mh5 position. Call light in reach. Side rails up X2. Warm blanket given. pvc monitor on. Pulse ox on. NIBP on. 10:07 Triage completed. hj 11:54 Zoe Buck MD is Hospitalizing Provider. pm1 12:11 Hospitalizing Provider role handed off by Zoe Buck MD pm1 12:11 Alfonso Crump MD is Hospitalizing Provider. pm1 12:11 Alfonso Crump MD is Hospitalizing Provider. pm1 13:33 Troponin I Sent. em 13:33 Lipid Profile Sent. em 13:34 Repeat lab(s) drawn. by me, sent to lab. mh5 14:11 Patient admitted, IV remains in place. intact. hj Administered Medications: 10:26 Drug: Nitroglycerin 0.4 mg Route: Sublingual; hj 11:27 Follow up: Response: No adverse reaction; Pain is decreased hj 10:26 Drug: Aspirin 325 mg Route: PO; hj 10:38 Follow up: Response: No adverse reaction hj 11:28 Follow up: Response: No adverse reaction hj 11:40 Drug: Lovenox 1 mg/kg Route: Sub-Q; Site: right lower abdomen; 12:04 Follow up: Response: No adverse reaction Outcome: 11:54 Decision to Hospitalize by Provider. pm1 14:11 Admitted to Med/surg accompanied by nurse, via wheelchair, room 203, with chart, Report hj called to GENARO Voss 14:11 Condition: stable 14:11 Instructed on the need for admit, Demonstrated understanding of instructions. 14:12 Patient left the ED. Signatures: Dispatcher [employer] Radha Lawrencewalter, Julio jbRoshan Ramos, SUPERVISOR EVAPORATOR SUPERVISOR EVAPORATOR Manju Guadarrama Henry, RN RN Travis Rolon, SARAH SPRAYER LEATHER pm1 Radha Anderson [facility] Corrections: (The following items were deleted from the chart) 11:46 08:57 BP 133 / 96; Pulse 84bpm; Resp 20bpm; Pulse Ox 96% RA; mh5
--- NOTE | 2018-06-24 11:55 | EDPHYS ---
Physician Documentation [facility] Name: Torie Cooper Age: 63 yrs Sex: Female : 1955 Arrival Date: 06/24/2018 Time: 08:53 Bed 13 Private MD: None, None ED Physician South Castillo HPI: 06/24 09:30 This 63 yrs old Female presents to ER via Ambulatory with complaints of Chest pm1 Pain and shortness of breath. 09:30 The patient or guardian reports chest pain that is located primarily in the mid-sternal pm1 area. Onset: 4 day(s) ago. The pain does not radiate. Associated signs and symptoms: Pertinent positives: cough, nausea, shortness of breath, Pertinent negatives: abdominal pain, near syncope, palpitations, vomiting. The chest pain is described as a pressure, tightness. Duration: The patient or guardian reports multiple episodes. Modifying factors: The symptoms are alleviated by nothing. the symptoms are aggravated by nothing. Severity of pain: in the emergency department the pain is actually worse. The patient has been recently seen by a physician: a dance costume designer, Dr. Carlson, cardiology. Patient recently had medication change. HCTZ for the purpose of diuresis added. Patient reports some swelling to lower extremities addressed at visit about 1-2 weeks ago. Patient with a history of angina that she addresses with nitro. Patient with chest tightness and shortness of breath for the past 3-4 days that is not typical of her angina sensation. Symptoms of chest tightness is worse this AM. 09:30 Patient with single stent placed 2 years ago. pm1 Historical: - Allergies: 08:57 Tetanus Vaccines \T\ Toxoid; 08:57 PENICILLINS; - Home Meds: 08:57 nitroglycerin 0.4 mg SL subl 1 tab [Active]; losartan 100 mg oral tab 1 tab once daily [Active]; prasugrel oral oral 1 tab [Active]; hydrochlorothiazide 12.5 mg Oral cap 1 cap once daily [Active]; isosorbide mononitrate 30 mg Oral Tb24 1 tab once daily [Active]; prednisolone 5 mg/5 mL Oral soln 5 mL once daily [Active]; pyidostgamine [Active]; diazepam 2 mg Oral tab 1 tab 3 times per day [Active]; Wellbutrin SR 150 mg Oral TbER 1 tab three times a day [Active]; trazodone 100 mg Oral tab 1 tab 3 times per day [Active]; Lexapro 20 mg Oral tab 1 tab once daily [Active]; Effient 10 mg oral tab 1 tab once daily [Active]; - PMHx: 08:57 Angina; myasthenia gravis; PTSD; Depression; [place]; hj - PSHx: 08:57 Appendectomy; Heart stents; gastric stapples; hj - Immunization history:: Adult Immunizations up to date. - Social history:: Smoking status: Patient/guardian denies using tobacco, Patient/guardian denies using alcohol. - Ebola Screening: : Patient negative for fever greater than or equal to 101.5 degrees Fahrenheit, and additional compatible Ebola Virus Disease symptoms Patient denies exposure to infectious person Patient denies travel to an Ebola-affected area in the 21 days before illness onset. ROS: 09:30 Constitutional: Negative for fever, chills, and weight loss, Eyes: Negative for injury, pm1 pain, redness, and discharge, ENT: Negative for injury, pain, and discharge, Neck: Negative for injury, pain, and swelling. 09:30 Abdomen/GI: Negative for abdominal pain, nausea, vomiting, diarrhea, and constipation, Back: Negative for injury and pain, : Negative for injury, bleeding, discharge, and swelling, MS/Extremity: Negative for injury and deformity, Skin: Negative for injury, rash, and discoloration, Neuro: Negative for headache, weakness, numbness, tingling, and seizure. 09:30 Cardiovascular: Positive for chest pain, Negative for edema, orthopnea, palpitations. 09:30 Respiratory: Positive for cough, shortness of breath. Exam: 09:30 Constitutional: This is a well developed, well nourished patient who is awake, alert, pm1 and in no acute distress. Head/Face: Normocephalic, atraumatic. Eyes: Pupils equal round and reactive to light, extra-ocular motions intact. Lids and lashes normal. Conjunctiva and sclera are non-icteric and not injected. Cornea within normal limits. Periorbital areas with no swelling, redness, or edema. ENT: Nares patent. No nasal discharge, no septal abnormalities noted. Tympanic membranes are normal and external auditory canals are clear. Oropharynx with no redness, swelling, or masses, exudates, or evidence of obstruction, uvula midline. Mucous membranes moist. Neck: Trachea midline, no thyromegaly or masses palpated, and no cervical lymphadenopathy. Supple, full range of motion without nuchal rigidity, or vertebral point tenderness. No Meningismus. Chest/axilla: Normal chest wall appearance and motion. Nontender with no deformity. No lesions are appreciated. Cardiovascular: Regular rate and rhythm with a normal S1 and S2. No gallops, murmurs, or rubs. Normal PMI, no JVD. No pulse deficits. Respiratory: Lungs have equal breath sounds bilaterally, clear to auscultation and percussion. No rales, rhonchi or wheezes noted. No increased work of breathing, no retractions or nasal flaring. Abdomen/GI: Soft, non-tender, with normal bowel sounds. No distension or tympany. No guarding or rebound. No evidence of tenderness throughout. Back: No spinal tenderness. No costovertebral tenderness. Full range of motion. Skin: Warm, dry with normal turgor. Normal color with no rashes, no lesions, and no evidence of cellulitis. MS/ Extremity: Pulses equal, no cyanosis. Neurovascular intact. Full, normal range of motion. 09:30 Neuro: Orientation: is normal, Motor: is normal, moves all fours. Vital Signs: 08:57 BP 133 / 96; Pulse 84; Resp 20; Temp 97.9(TE); Pulse Ox 96% on R/A; Weight 104.78 kg; Height 5 ft. 3 in. (160.02 cm); Pain 5/10; 09:30 BP 117 / 90; Pulse 82; Resp 18; Pulse Ox 97% on 2 lpm NC; hj 10:42 BP 143 / 79; Pulse 81; Resp 18; Pulse Ox 97% on 2 lpm NC; 11:47 BP 185 / 75; Pulse 68; Resp 18; Pulse Ox 98% on 2 lpm NC; 12:45 BP 135 / 77; Pulse 72; Resp 18; Pulse Ox 99% on R/A; 13:36 BP 103 / 77; Pulse 78; Resp 18; Pulse Ox 98% on R/A; [facility] 08:57 Body Mass Index 40.92 (104.78 kg, 160.02 cm) hj MDM: 08:59 Patient medically screened. pm1 10:55 Data reviewed: vital signs. Data interpreted: Pulse oximetry: on room air is 97 %. pm1 Interpretation: normal. 11:37 Counseling: I had a detailed discussion with the patient and/or guardian regarding: the pm1 historical points, exam findings, and any diagnostic results supporting the discharge/admit diagnosis, lab results, radiology results, the need for further work-up and treatment in the hospital. 12:44 Physician consultation: Alfonso Crump MD was contacted at 12:45, regarding admission, pm1 patient's condition, and will see patient. 06/24 09:04 Order name: Basic Metabolic Panel; Complete Time: 10:08 pm1 06/24 09:04 Order name: CBC with Diff; Complete Time: 10:08 pm1 06/24 09:04 Order name: Ckmb; Complete Time: 10:08 pm1 06/24 09:04 Order name: CPK; Complete Time: 10:08 pm1 06/24 09:04 Order name: LFT's; Complete Time: 10:08 pm1 06/24 09:04 Order name: Magnesium; Complete Time: 10:08 pm1 06/24 09:04 Order name: NT PRO-BNP; Complete Time: 10:08 pm1 06/24 09:04 Order name: PT-INR; Complete Time: 10:08 pm1 06/24 09:04 Order name: Ptt, Activated; Complete Time: 10:08 pm1 06/24 09:04 Order name: Troponin (emerg Dept Use Only); Complete Time: 10:08 pm1 06/24 09:04 Order name: Blood Culture Adult (2) pm1 06/24 12:54 Order name: Lipid Profile EDSC 06/24 12:54 Order name: Lipid Profile EDSC 06/24 12:54 Order name: Troponin I EDSC 06/24 09:04 Order name: XRAY Chest (1 view); Complete Time: 10:50 pm1 06/24 09:04 Order name: EKG; Complete Time: 09:05 pm1 06/24 09:04 Order name: Cardiac monitoring; Complete Time: 09:59 pm1 06/24 09:04 Order name: EKG - Nurse/Tech; Complete Time: 09:59 pm1 06/24 09:04 Order name: IV Saline Lock; Complete Time: 09:59 pm1 06/24 09:04 Order name: Labs collected and sent; Complete Time: 09:59 pm1 06/24 12:54 Order name: CONS Physician Consult EDSC 06/24 12:54 Order name: Echo with Doppler EDSC 06/24 12:54 Order name: EKG Electrocardiogram EDSC 06/24 12:54 Order name: Troponin I EDSC 06/24 12:54 Order name: Troponin I EDSC 06/24 12:54 Order name: Troponin I EDSC 06/24 13:37 Order name: Urine Dipstick--Ancillary (enter results) 06/24 09:04 Order name: O2 Per Protocol; Complete Time: 09:59 pm1 06/24 09:04 Order name: O2 Sat Monitoring; Complete Time: 09:59 pm1 Administered Medications: 10:26 Drug: Nitroglycerin 0.4 mg Route: Sublingual; hj 11:27 Follow up: Response: No adverse reaction; Pain is decreased hj 10:26 Drug: Aspirin 325 mg Route: PO; hj 10:38 Follow up: Response: No adverse reaction hj 11:28 Follow up: Response: No adverse reaction hj 11:40 Drug: Lovenox 1 mg/kg Route: Sub-Q; Site: right lower abdomen; hj 12:04 Follow up: Response: No adverse reaction hj Disposition: 14:21 Co-signature as Attending Physician, South Castillo MD I agree with the assessment and kdr plan of care. Disposition: 06/24/18 11:54 Hospitalization ordered by Alfonso Crump for Observation. Preliminary diagnosis is Unstable angina. - Bed requested for Telemetry/MedSurg (observation). - Status is Observation. hj - Condition is Stable. - Problem is new. - Symptoms have improved. UTI on Admission? No Signatures: Dispatcher [employer] [facility] South Castillo MD MD [facility] Eloy Kulkarni RN RN Travis Rolon NP PRESSURE STEAMER TENDER pm1 Shanti Griffin Corrections: (The following items were deleted from the chart) 12:11 11:54 Hospitalization Ordered by Zoe Buck MD for Observation. Preliminary pm1 diagnosis is Unstable angina. Bed requested for Telemetry/MedSurg (observation). Status is Observation. Condition is Stable. Problem is new. Symptoms have improved. UTI on Admission? No. pm1 13:15 12:11 06/24/2018 11:54 Hospitalization Ordered by Alfonso Crump MD for Observation. eb Preliminary diagnosis is Unstable angina. Bed requested for Telemetry/MedSurg (observation). Status is Observation. Condition is Stable. Problem is new. Symptoms have improved. UTI on Admission? No. pm1 14:12 13:15 06/24/2018 11:54 Hospitalization Ordered by Alfonso Crump MD for Observation. hj Preliminary diagnosis is Unstable angina. Bed requested for Telemetry/MedSurg (observation). Status is Observation. Condition is Stable. Problem is new. Symptoms have improved. UTI on Admission? No. eb
[2018-06-24] MEDS ORDERED: ENOXAPARIN 100 MG/ML SYR SQ ONE (12:06)
[2018-06-24] MEDS ORDERED: MORPHINE 4 MG/ML SYR IV PRN (12:47)
[2018-06-24] MEDS ORDERED: NITROGLYCERIN 0.4 MG/TAB SL PRN (12:47)
[2018-06-24] MEDS ORDERED: ASPIRIN 325 MG TAB PO ONE (12:47)
[2018-06-24 14:14] LABS: Urine Blood NEGATIVE (NEG); Urine Glucose NEGATIVE (NEG); Urine Protein NEGATIVE (NEG); Urine Specific Gravity 1.015 (1.005-1.030)
[2018-06-24] MEDS: ARFORMOTEROL TARTRATE 15 MCG/2 ML VIAL.NEB NEB SCH ×2 (14:56→19:37)
--- NOTE | 2018-06-24 15:02 | P.HP ---
Certification for Inpatient Patient admitted to: Observation With expected LOS: <2 Midnights Patient will require the following post-hospital care: None Practitioner: I am a practitioner with admitting privileges, knowledge of patient current condition, hospital course, and medical plan of care. Services: Services provided to patient in accordance with Admission requirements found in Title 42 Section 412.3 of the Code of Federal Regulations Patient History Date of Service: 06/24/18 Reason for admission: Chest pain and cough History of Present Illness: Patient is 63 years of age with a history of coronary artery disease admitted with chest discomfort she has been coughing for 5 day prior history of asthma has not use a bronchodilator for 2 years moved [facility] recently patient is still coughing nonproductive no fever chills chest pain has resolved Allergies Penicillins Allergy (Verified 06/24/18 13:37) Hives/Rash tetanus and diphtheria toxoids Allergy (Verified 06/24/18 13:37) Anaphylaxis - Past Medical/Surgical History -: Coronary artery disease -: Myasthenia gravis -: PTSD -: Depression -: Appendectomy -: Coronaries stents -: Gastric glenda Review of Systems 10-point ROS is otherwise unremarkable Physical Examination - Vital Signs Temperature: 97.9 F Blood Pressure: 103/77 Pulse: 78 Respirations: 18 - Physical Exam General: Alert, Oriented x3 HEENT: Atraumatic Neck: Supple Respiratory: Clear to auscultation bilaterally Cardiovascular: No edema, Normal S1 S2 Gastrointestinal: Normal bowel sounds, Soft and benign Musculoskeletal: No clubbing, No swelling - Studies Laboratory Data (last 24 hrs) 06/24/18 09:30: PT 13.6 H, INR 1.15, APTT 36.6 06/24/18 09:30: WBC 10.5, Hgb 13.7, Hct 40.3, Plt Count 293 06/24/18 09:30: Sodium 139, Potassium 3.9, BUN 9, Creatinine 1.00, Glucose 112 H , Magnesium 1.9, Total Bilirubin 0.4, AST 15, ALT 18, Alkaline Phosphatase 112 Assessment and Plan - Problems (Diagnosis) (1) Cough Current Visit: Yes Status: Acute Plan: Patient is 63 years of age admitted with a cough for the past 4 days and some chest discomfort history of asthma recently moved to [facility] from [facility] patient has not used her Advair or albuterol in the past 2 years history of coronary artery disease and myasthenia CBC normal BNP was elevated doubt that this is cardiac treat with bronchodilators increase steroids I have instructed her to resume her Advair at home slightly prominent hilum 2D echocardiogram patient does not have a regular physician here possible discharge tomorrow - Advance Directives Does patient have a Living Will: No Does patient have a Durable POA for Healthcare: No
[2018-06-24 15:11] VITALS: BMI 46.5
[2018-06-24] MEDS: METHYLPREDNISOLONE 40 MG INJ IV SCH (15:16)
[2018-06-24 17:46] LABS: Troponin I 0.02 ng/mL (0.0-0.045)
[2018-06-24] MEDS ORDERED: ENOXAPARIN 100 MG/ML SYR SQ SCH (21:00)
[2018-06-25] MEDS: METHYLPREDNISOLONE 40 MG INJ IV SCH ×3 (00:22→18:17)
[2018-06-25] MEDS: ARFORMOTEROL TARTRATE 15 MCG/2 ML VIAL.NEB NEB SCH ×2 (07:38→19:15)
--- NOTE | 2018-06-25 07:57 | EKG ---
Test Date: 2018-06-24 Test Time: 09:07:29 Long Term Care Pharmacist: CARLOS MEASUREMENT RESULTS: Intervals: Rate: 93 OK: 122 QRSD: 140 QT: 402 QTc: 499 [place]: P: -6 OK: 122 QRS: 70 T: 5 INTERPRETIVE STATEMENTS: Normal sinus rhythm Right bundle branch block T wave abnormality, consider inferior ischemia Abnormal ECG No previous ECG available for comparison Electronically Signed On 06-25-18 07:55:06 CDT by Jensen Hsieh
[2018-06-25] MEDS: hydroCHLOROthiazide 12.5 MG CAP PO SCH (12:06)
[2018-06-25] MEDS: PRASUGREL (EFFIENT) 10 MG TAB PO SCH (12:07)
[2018-06-25] MEDS: ISOSORBIDE MONO SR 30 MG TAB PO SCH (12:07)
[2018-06-25] MEDS: DIAZEPAM 2 MG TABLET PO SCH ×2 (12:07→21:57)
[2018-06-25] MEDS: LOSARTAN POTASSIUM 50 MG TABLET PO SCH (12:07)
[2018-06-25] MEDS: ESCITALOPRAM 20 MG TAB PO SCH (12:07)
--- NOTE | 2018-06-25 12:08 | PN ---
Date of Progress Note: 06/25/2018 Subjective: The patient is seen and examined. Chart reviewed and case discussed with RN. The patient still having some cough and shortness of breath while ambulating with respiratory therapist, O2 saturation down to 88%. Denies any chest tightness. Review of Systems: Negative except above. Medications: List reviewed. Physical Examination: Vital Signs: Temperature 97.2, heart rate 52, respirations 16, O2 93% on room air. General: Awake, alert, oriented x3. Some mild distress, morbidly obese female. CV: S1, S2. No murmurs. Peripheral pulses present. Respiratory: Moving air well bilaterally. No wheezing. No stridor. Gastrointestinal: Abdomen is soft, nontender, nondistended. Positive bowel sounds. Extremities: No clubbing, cyanosis, edema. Neurologic: Nonfocal. Laboratory Data: Troponin level less than 0.02 x3. Blood cultures, no growth to date. Assessment And Plan: 1. Acute asthma exacerbation. Continue with steroids and breathing treatments. 2. Cough. 3. Chest discomfort, likely related to above. Acute coronary syndrome ruled out. 4. Morbid obesity, BMI 46. 5. Coronary artery disease, rampart artery and rampart heart without angina. 6. Posttraumatic stress disorder, stable. 7. Major depressive disorder, stable. Plan: Echocardiogram in the a.m., wean steroids. The patient is still hypoxic. We will continue breathing treatments and steroids and check room air sats daily, currently on 2 L. /RACHAEL Voice ID: [id number] Report ID: [id number] WILLIAM
[2018-06-25] MEDS: BUPROPRION HCL S.R. 150MG TAB PO SCH ×2 (13:32→21:57)
[2018-06-25] MEDS ORDERED: TRAZODONE HCL 150 MG PO SCH (21:00)
[2018-06-25] MEDS ORDERED: TRAZODONE 150 MG TAB PO SCH (21:00)
[2018-06-26] MEDS: METHYLPREDNISOLONE 40 MG INJ IV SCH ×2 (00:23→09:26)
[2018-06-26 06:22] VITALS: BP 137/65; TEMP 97.2
[2018-06-26] MEDS: ARFORMOTEROL TARTRATE 15 MCG/2 ML VIAL.NEB NEB SCH (07:34)
[2018-06-26 08:29] VITALS: O2SAT 94
[2018-06-26] MEDS ORDERED: hydroCHLOROthiazide 12.5 MG CAP PO SCH (09:00)
[2018-06-26] MEDS: BUPROPRION HCL S.R. 150MG TAB PO SCH (09:00)
[2018-06-26] MEDS ORDERED: HOME MED 1 EA UNK (Losartan Potassium [Losartan Potassium] 100 MG) PO SCH (09:00)
[2018-06-26] MEDS ORDERED: HOME MED 1 EA UNK (Hydrochlorothiazide [Hydrochlorothiazide] 12.5 MG) PO SCH (09:00)
--- NOTE | 2018-06-26 09:02 | ECHO ---
HEIGHT: 5 ft 2.5 in WEIGHT: 258 lb 6.4 oz DATE OF STUDY: 06/25/[address]: Alfonso Crump MD 2-DIMENSIONAL: YES M.MODE: YES DOPPLER: YES COLOR FLOW: YES TDS: PORTABLE: DEFINITY: BUBBLE STUDY: DIAGNOSIS: CHEST PAIN CARDIAC HISTORY: CATHERIZATION: STENT SURGERY: NO PROSTHETIC VALVE: PACEMAKER: NO MEASUREMENTS (cm) DIASTOLIC (NORMALS) SYSTOLIC (NORMALS) IVSd 1.2 (0.6-1.2) LA Diam 3.8 (1.9-4.0) LVEF 62% LVIDd 4.2 (3.5-5.7) LVIDs 2.8 (2.0-3.5) %FS 33% LVPWd 1.2 (0.6-1.2) Ao Diam 2.8 (2.0-3.7) 2 DIMENSIONAL ASSESSMENT: RIGHT ATRIUM: NORMAL LEFT ATRIUM: NORMAL RIGHT VENTRICLE: NORAML LEFT VENTRICLE: NORMAL TRICUSPID VALVE: NORMAL MITRAL VALVE: NORMAL PULMONIC VALVE: NORMAL AORTIC VALVE: NORMAL PERICARDIAL EFFUSION: NONE AORTIC ROOT: NORMAL LEFT VENTRICULAR WALL MOTION: NORMAL DOPPLER/COLOR FLOW: COMMENTS: NORMAL 2-DIMENSIONAL ECHOCARDIOGRAM WITH DOPPLER. NO WALL MOTION ABNORMALITY. NO EFFUSION. TECHNOLOGIST: SEVEN SORENSON
--- NOTE | 2018-06-26 09:22 | RAD REPORT ---
EXAM DESCRIPTION: RAD - Chest Pa And Lat (2 Views) - 06/26/2018 9:10 am CLINICAL HISTORY: follow up SOB/Asthma Chest pain. COMPARISON: Chest Single View dated 06/24/2018 FINDINGS: The lungs are clear. The heart is normal in size. No displaced fractures. IMPRESSION: No acute or concerning finding suspected.
[2018-06-26] MEDS: DIAZEPAM 2 MG TABLET PO SCH (09:26)
[2018-06-26] MEDS: ESCITALOPRAM 20 MG TAB PO SCH (09:26)
[2018-06-26] MEDS: hydroCHLOROthiazide 12.5 MG CAP PO SCH (09:26)
[2018-06-26] MEDS: LOSARTAN POTASSIUM 50 MG TABLET PO SCH (09:26)
[2018-06-26] MEDS: PRASUGREL (EFFIENT) 10 MG TAB PO SCH (09:27)
[2018-06-26] MEDS: ISOSORBIDE MONO SR 30 MG TAB PO SCH (09:27)
--- NOTE | 2018-06-26 10:30 | P.DS ---
Admission Date: 06/24/18 Discharge Date: 06/26/18 Primary Care Provider: none Disposition: ROUTINE DISCHARGE Discharge Condition: GOOD Reason for Admission: Chest pain and cough Procedures: Chest x-ray: Unremarkable. Echocardiogram: Ejection fraction 62%. Otherwise unremarkable. - Problems (1) Asthma Current Visit: Yes Status: Acute Qualifiers: Asthma severity: moderate Asthma persistence: persistent Asthma complication type: with acute exacerbation Qualified Code(s): J45.41 - Moderate persistent asthma with (acute) exacerbation (2) CAD (coronary artery disease) Current Visit: Yes Status: Chronic (3) HTN (hypertension) Current Visit: Yes Status: Chronic Qualifiers: Hypertension type: essential hypertension Qualified Code(s): I10 - Essential (primary) hypertension (4) PTSD (post-traumatic stress disorder) Current Visit: Yes Status: Chronic (5) Cough Current Visit: Yes Status: Acute Brief History of Present Illness: 63-year-old female presented emergency room with cough. Patient with history of CAD, posttraumatic stress disorder, hypertension. She is new to the area. Patient was evaluated in the emergency room found to have asthma exacerbation. Patient has been without medication for quite some time. Hospital Course: Patient presented with cough secondary to asthma exacerbation. Patient responded well to therapy. Patient was given IV steroids. Patient was weaned off oxygen. Chest x-ray unremarkable. Echocardiogram also unremarkable with normal ejection fraction. At discharge patient will continue with prednisone 20 mg 1 pill twice daily for 5 days then 1 pill once daily for 5 days. Patient will be provided medication for cough-Tessalon Perles 200 mg 1 pill 3 times a day as needed for cough. At discharge patient will continue with asthma maintenance therapy including Advair 250 mcg 1 puff twice daily and Pro air 2 puffs 3 times a day as needed for shortness of breath. Recommendation is for the patient follow up with pulmonology as an outpatient to further monitor and address. Patient has history of CAD. Patient will continue with her medications including Effient 10 mg daily and Imdur 10 mg 1 pill once daily. Recommendation is for the patient to establish care in the area and to follow up with cardiology. Patient has hypertension. Patient will continue with losartan 100 mg 1 pill daily and hydrochlorothiazide 12.5 mg 1 pill daily. Recommendation is to maintain blood pressures less 150/80. Further adjustment can be done by her PCP. Patient has posttraumatic stress disorder. She will continue with her medications including Wellbutrin XL 150 mg 1 pill 3 times a day, Valium 2 mg 1 pill twice daily, and Lexapro 20 mg 1 pill once daily. Recommendation is to continue with psychiatry to further monitor and address. Vital Signs/Physical Exam: Temp Pulse Resp BP Pulse Ox 97.2 F 77 20 137/65 93 06/26/18 04:00 06/26/18 04:00 06/26/18 04:00 06/26/18 04:00 06/26/18 04:00 General: Alert, In no apparent distress, Oriented x3, Cooperative HEENT: Atraumatic, Mucous membr. moist/pink Neck: Supple Respiratory: Clear to auscultation bilaterally, Normal air movement Cardiovascular: Normal pulses, Regular rate/rhythm Gastrointestinal: Normal bowel sounds, Soft and benign, Non-distended, No tenderness, No masses, No rebound, No guarding Musculoskeletal: No erythema, No tenderness, No warmth Integumentary: No tenderness/swelling, No erythema, No warmth, No cyanosis Neurological: Normal speech, Normal strength at 5/5 x4 extr, Normal tone, Normal affect Laboratory Data at Discharge: WBC 10.5 K/uL (4.3-10.9) 06/24/18 09:30 Hgb 13.7 g/dL (12.0-15.0) 06/24/18 09:30 Hct 40.3 % (36.0-45.0) 06/24/18 09:30 Plt Count 293 K/uL (152-406) 06/24/18 09:30 PT 13.6 SECONDS (9.5-12.5) H 06/24/18 09:30 INR 1.15 06/24/18 09:30 APTT 36.6 SECONDS (24.3-36.9) 06/24/18 09:30 Sodium 139 mmol/L (136-145) 06/24/18 09:30 Potassium 3.9 mmol/L (3.5-5.1) 06/24/18 09:30 BUN 9 mg/dL (7-18) 06/24/18 09:30 Creatinine 1.00 mg/dL (0.55-1.3) 06/24/18 09:30 Glucose 112 mg/dL (74-106) H 06/24/18 09:30 Magnesium 1.9 mg/dL (1.8-2.4) 06/24/18 09:30 Total Bilirubin 0.4 mg/dL (0.2-1.0) 06/24/18 09:30 AST 15 U/L (15-37) 06/24/18 09:30 ALT 18 U/L (12-78) 06/24/18 09:30 Alkaline Phosphatase 112 U/L (45-117) 06/24/18 09:30 Troponin I < 0.02 ng/mL (0.0-0.045) 06/25/18 04:41 Triglycerides 206 mg/dL (<150) H 06/24/18 17:12 Cholesterol 214 mg/dL (<200) H 06/24/18 17:12 HDL Cholesterol 50 mg/dL (40-60) 06/24/18 17:12 Cholesterol/HDL Ratio 4.28 06/24/18 17:12 Home Medications: Buproprion S.r. [Wellbutrin Sr*] 150 mg PO TID 06/24/18 Escitalopram Oxalate [Lexapro] 20 mg PO DAILY 06/24/18 Isosorbide Mononitrate [Isosorbide Mononitrate ER] 30 mg PO DAILY 06/24/18 Losartan Potassium 100 mg PO DAILY 06/24/18 Nitroglycerin [Nitrostat*] 0.4 mg PO DAILY PRN 06/24/18 Prasugrel HCl 10 mg PO DAILY 06/24/18 Trazodone HCl 150 mg PO BEDTIME 06/24/18 diazePAM [Diazepam] 2 mg PO BID 06/24/18 hydroCHLOROthiazide [Hydrochlorothiazide] 12.5 mg PO DAILY 06/24/18 Albuterol Sulfate [Proair Hfa] 8.5 gm IH TID PRN #1 hfa.aer.ad 06/26/18 Benzonatate [Tessalon Perle] 200 mg PO TID PRN #10 cap 06/26/18 Fluticasone/Salmeterol [Advair 250-50 Diskus] 1 each IH BID #1 blst.w.dev predniSONE [Prednisone*] 20 mg PO SEECOM #15 tab 06/26/18 New Medications: Albuterol Sulfate [Proair Hfa] 8.5 gm IH TID PRN #1 hfa.aer.ad PRN Reason: Shortness Of Breath Benzonatate [Tessalon Perle] 200 mg PO TID PRN #10 cap PRN Reason: Cough Fluticasone/Salmeterol [Advair 250-50 Diskus] 1 each IH BID #1 blst.w.dev predniSONE [Prednisone*] 20 mg PO SEECOM #15 tab Patient Discharge Instructions: 1. Patient will need to follow up with a PCP to establish care. 2. Patient presented with cough secondary to asthma exacerbation. Patient responded well to therapy. Patient did not require oxygen at discharge. Chest x-ray unremarkable. Echocardiogram also unremarkable with normal ejection fraction. At discharge patient will continue with prednisone 20 mg 1 pill twice daily for 5 days then 1 pill once daily for 5 days. Patient will be provided medication for cough-Tessalon Perles 200 mg 1 pill 3 times a day as needed for cough. At discharge patient will continue with asthma maintenance therapy including Advair 250 mcg 1 puff twice daily and Pro air 2 puffs 3 times a day as needed for shortness of breath. Recommendation is for the patient follow up with pulmonology as an outpatient to further monitor and address. 3. Patient has history of CAD. Patient will continue with her medications including Effient 10 mg daily and Imdur 10 mg 1 pill once daily. Recommendation is for the patient to establish care in the area and to follow up with cardiology. 4. Patient has hypertension. Patient will continue with losartan 100 mg 1 pill daily and hydrochlorothiazide 12.5 mg 1 pill daily. Recommendation is to maintain blood pressures less 150/80. Further adjustment can be done by her PCP. 5. Patient has posttraumatic stress disorder. She will continue with her medications including Wellbutrin XL 150 mg 1 pill 3 times a day, Valium 2 mg 1 pill twice daily, and Lexapro 20 mg 1 pill once daily. Recommendation is to continue with psychiatry to further monitor and address. Diet: AHA Activity: Ad jag Time spent managing pt's care (in minutes): 55
== END 2018-06-26 11:51 | disposition home or self-care (01) ==
LOC: SUPCPDRO 08:48 → ER 08:48 → ERHOLD 12:48 → 2ND 13:52
PROVIDERS: ADMIT Internal Medicine Sleep Medicine; ATTEND Internal Medicine Sleep Medicine
DX: J45.41 Moderate persistent asthma with (acute) exacerbation (principal); I25.10 Atherosclerotic heart disease of native coronary artery without angina pectoris; I10 Essential (primary) hypertension; F43.12 Post-traumatic stress disorder, chronic; E66.01 Morbid (severe) obesity due to excess calories; Z68.42 Body mass index [BMI] 45.0-49.9, adult
CPT/HCPCS: 36415; 71045; 71046; 80048; 80061; 80076; 81003; 82550; 82553; 83735; 83880; 84484; 85025; 85610; 85730; 87040; 93005; 93306; 94640; 94760; 96372; 99285; G0378; J1650; J2920; J7605

== ENCOUNTER 2024-08-12 12:21 | Emergency (ER) | payer OTHER ==
[2024-08-12] MEDS ORDERED: FENTANYL CITR 100 MCG/2 ML ONE (12:32)
[2024-08-12] MEDS ORDERED: NA CHLORIDE 0.9% 1,000 ML ONE (12:32)
[2024-08-12 12:35] LABS: Absolute Basophils 0.1 K/uL (0-0.5); Absolute Eosinophils 0.1 K/uL (0-0.5); Absolute Lymphocytes (CBC) 1.9 K/uL (0.7-4.9); Absolute Monocytes 0.6 K/uL (0.1-1.3); Absolute Neutrophil 5.7 K/uL (1.8-8.0); Basophils % 0.8 % (0-1.3); Eosinophils % 1.3 % (0-4.4); Hematocrit 32.1 % (36.0-45.0); Hemoglobin 10.6 g/dL (12.0-15.0); Lymphocytes % 22.5 % (15.3-44.8); MCH 29.9 pg (27.0-35.0); MCV 90.7 fL (80-100); MPV 7.7 fL (7.6-11.3); Neutrophils % 68.4 % (41.7-73.7); Platelets 238 thou/uL (152-406); RBC Red Blood Cell Count 3.54 M/uL (3.86-4.86); Red Cell Distribution Width 13.9 % (12.1-15.2)
[2024-08-12 12:57] LABS: Albumin 2.6 g/dL (3.4-5.0); Albumin/Globulin Ratio 0.9 (1.1-1.8); Anion Gap 5.9 mEq/L (5.0-15.0); Bilirubin Direct 0.2 mg/dL (0-0.2); Bilirubin Indirect, Calculated 0.3 mg/dL (0.2-0.8); Bilirubin Total 0.5 mg/dL (0.2-1.0); Globulin 2.8 g/dL (2.3-3.5); Potassium 3.9 mEq/L (3.5-5.1); Protein, Total 5.4 g/dL (6.4-8.2)
--- OUTSIDE RECORDS SUMMARY | 2024-08-12 12:57 | XMS REPORT | Continuity of Care Document ---
Author Name Unknown Address [address] [facility] [address] [place] [address] [facility] thconnect Address [address] [facility] [address] [place] [address] Care Team Providers Care Balance Engineer Name Role Phone MYNOR SPARKS Attending Clinician FRANTZ Martinez M.D. Attending Clinician CARLOS Treviño M.D. Attending Clinician ESCOBAR Guan LCSW Attending Clinician Judi ORTIZ, NURSE Attending Clinician CHRISSIE Ozuna M.D. Attending Clinician Rodger ailmary Payers Payer Name Policy Type Policy Number Effective Date Expirati on Date Source [employer] [employer] [id number] 2015 00:00:00 2024 00:00:00 Problems Condition Name Condition Details Condition Category Status Onset Date Resolution Date Last Treatment Date Treating Clinician Comments Source Osteoarthr itis of left knee Osteoarthr itis of left knee Problem [facility] Left lumbar radiculopa thy Left lumbar radiculopa thy Problem Active [facility] Reactive airway disease Reactive airway disease Problem Active [facility] Bronchioli tis Bronchioli tis Problem Active [facility] Myasthenia gravis Myasthenia gravis Problem Active [facility] Morbid obesity Morbid obesity Problem Active [facility] Abnormal albumin Abnormal albumin Problem Active [facility] Diastolic dysfunctio n Diastolic dysfunctio n Problem Active [facility] RBBB RBBB Problem Active [facility] Need for hepatitis C screening test Need for hepatitis C screening test Problem Active [facility] PORTIA (obstructi ve sleep apnea) [place] (obstructi ve sleep apnea) Problem Active [facility] Elevated CK Elevated CK Problem Active [facility] Screening mammogram, encounter for Screening mammogram, encounter for Problem Active [facility] GERD (gastroeso phageal reflux disease) GERD (gastroeso phageal reflux disease) Problem Active [facility] HLD (hyperlipi demia) HLD (hyperlipi demia) Problem Active [facility] Screening for thyroid disorder Screening for thyroid disorder Problem Active [facility] Colon cancer screening Colon cancer screening Problem Active [facility] Oral thrush Oral thrush Problem Active [facility] CAD in [place] artery CAD in [place] artery Problem Active [facility] CKD (chronic kidney disease), stage III CKD (chronic kidney disease), stage III Problem Active [facility] Essential (primary) hypertensi on Essential (primary) hypertensi on Problem Active [facility] Hypokalemi a Hypokalemi a Problem Active [facility] Bipolar 1 disorder Bipolar 1 disorder Problem Active [facility] Anxiety Anxiety Problem Active [facility] Chronic insomnia Chronic insomnia Problem Active [facility] CHRISTO (generaliz ed anxiety disorder) CHRISTO (generaliz ed anxiety disorder) Problem Active [facility] Pulmonary nodule Pulmonary nodule Problem Active [facility] Allergies, Adverse Reactions, Alerts Allergy Name Allergy Type Status Severity Reaction(s) Onset Date Inactive Date Treating Clinician Comments Source Penicill ins Allergy to drug (finding ) Active [facility] Tetanus Toxoid Fluid SOLN Allergy to drug (finding ) Active [facility] Family History Family Member Diagnosis Comments Start Date Stop Date Sourc e Mother Family history of ca rdiac disorder [facility] Mother Family history of ty pe 2 diabetes mellitus [facility] Father Family history of ca rdiac disorder [facility] Father Family history of ty pe 2 diabetes mellitus [facility] Social History Smoking Status Start Date Stop Date Source Never smoked tobacco (finding) [facility] Medications Ordered Medication Name Filled Medication Name Start Date Stop Date Current Medication? Ordering Clinician Indication Dosage Frequency Signature (SIG) Comments Components Source QUEtiapine Fumarate 100 MG Oral Tablet QUEtiapine Fumarate 100 MG Oral Tablet 05-21 00:00: 00 Yes FRANTZ BLOUNT M.D. TAKE 1 TABLET BY MOUTH EVERY EVENING AT BEDTIME [facility] Rozerem 8 MG Oral Tablet Rozerem 8 MG Oral Tablet 05-17 00:00: 00 Yes FRANTZ BLOUNT M.D. 1 TAKE 1 TABLET AT BEDTIME. [facility] QUEtiapine Fumarate 25 MG Oral Tablet QUEtiapine Fumarate 25 MG Oral Tablet 05-17 00:00: 00 Yes FRANTZ BLOUNT M.D. 1 Q0.5D TAKE 1 TABLET TWICE DAILY [facility] Nystatin 936511 UNIT/ML Mouth/Throa t Suspension Nystatin 450642 UNIT/ML Mouth/Throa t Suspension 2017-10 00:00: 00 Yes CARLOS VAN M.D. Q0.3333D SWISH AND SWALLOW 5 ML 3 TIMES DAILY [facility] Pantoprazol e Sodium 20 MG Oral Tablet Delayed Release Pantoprazol e Sodium 20 MG Oral Tablet Delayed Release 2017-10 00:00: 00 Yes CARLOS VAN M.D. 1 QD TAKE 1 TABLET DAILY. [facility] OXcarbazepi ne 300 MG Oral Tablet OXcarbazepi ne 300 MG Oral Tablet 2017-10 00:00: 00 Yes FRANTZ BLOUNT M.D. Q0.5D TAKE 1 TABLET TWICE DAILY. [facility] predniSONE 5 MG Oral Tablet predniSONE 5 MG Oral Tablet Yes 1 QD TAKE 1 TABLET DAILY [facility] Pyridostigm ine [place] 180 MG Oral Tablet Extended Release Pyridostigm ine [place] ER 180 MG Oral Tablet Extended Release Yes QD TAKE 1 TABLET DAILY DIRECTED. [facility] tiZANidine HCl - 2 MG Oral Tablet tiZANidine HCl - 2 MG Oral Tablet Yes [facility] Losartan Potassium 100 MG Oral Tablet Losartan Potassium 100 MG Oral Tablet Yes CARLOS VAN M.D. TAKE ONE TABLET BY MOUTH DAILY [facility] hydroCHLORO thiazide 12.5 MG Oral Capsule hydroCHLORO thiazide 12.5 MG Oral Capsule Yes [facility] Effient 10 MG Oral Tablet Effient 10 MG Oral Tablet Yes [facility] Breo Ellipta 100-25 MCG/INH Inhalation Aerosol Powder Breath Activated Breo Ellipta 100-25 MCG/INH Inhalation Aerosol Powder Breath Activated Yes [facility] Bromphen-DM -Pseudoeph SYRP Bromphen-DM -Pseudoeph SYRP Yes [facility] Ipratropium -Albuterol SOLN Ipratropium -Albuterol SOLN Yes [facility] Ventolin AERS Ventolin AERS Yes [facility] Pantoprazol e Sodium 40 MG Oral Tablet Delayed Release Pantoprazol e Sodium 40 MG Oral Tablet Delayed Release Yes CARLOS VAN M.D. 1 QD TAKE 1 TABLET DAILY [facility] Isosorbide Mononitrate 30 MG TB24 Isosorbide Mononitrate 30 MG TB24 Yes 3 QD TAKE 3 TABLET DAILY [facility] Aspirin 81 MG Oral Tablet Delayed Release Aspirin 81 MG Oral Tablet Delayed Release Yes 1 QD TAKE 1 TABLET DAILY. [facility] Escitalopra m Oxalate 20 MG Oral Tablet Escitalopra m Oxalate 20 MG Oral Tablet Yes FRANTZ BLOUNT M.D. 1 QD TAKE 1 TABLET DAILY [facility] traZODone HCl - 100 MG Oral Tablet traZODone HCl - 100 MG Oral Tablet Yes FRANTZ Heaton.DJeannette 2 TAKE 2 TABLET BEDTIME PRN [facility] buPROPion HCl ER (XL) 150 MG Oral Tablet Extended Release 24 Hour buPROPion HCl ER (XL) 150 MG Oral Tablet Extended Release 24 Hour Yes FRANTZ Heaton.DJeannette 3 QD TAKE 3 TABLETS DAILY [facility] Klor-Con M20 20 MEQ Oral Tablet Extended Release Klor-Con M20 20 MEQ Oral Tablet Extended Release Yes CARLOS Heaton.DJeannette 1 QD TAKE 1 TABLET DAILY. [facility] Vital Signs Vital Name Observation Time Observation Value Comments S jaya BP Systolic 2019-05-17 13:31:00 179 mm[Hg] Location : [facility]; Position: Sitting [facility] BP Diastolic 2019-05-17 13:31:00 107 mm[Hg] Location : E; Position: Sitting [facility] BP Systolic 2019-05-17 13:29:00 145 mm[Hg] Location : E; Position: [facility] BP Diastolic 2019-05-17 13:29:00 89 mm[Hg] Location : E; Position: [facility] Height 2019-05-17 13:29:00 64 [in_us] [facility] Weight 2019-05-17 13:29:00 253 [lb_av] [facility] Body Mass Index Calculated 2019-05-17 13:29:00 43.43 kg/m2 [facility] Heart Rate 2019-05-17 13:29:00 74 /min [facility] BP Systolic 2018-11-28 16:03:00 117 mm[Hg] Location : LUE; Position: Sitting [facility] BP Diastolic 2018-11-28 16:03:00 77 mm[Hg] Location : [facility]; Position: Sitting [facility] Height 2018-11-28 16:03:00 64 [in_us] [facility] Weight 2018-11-28 16:03:00 258 [lb_av] [facility] Body Mass Index Calculated 2018-11-28 16:03:00 44.29 kg/m2 [facility] Heart Rate 2018-11-28 16:03:00 71 /min [facility] BP Systolic 2018-09-27 13:48:00 153 mm[Hg] Location : RUE; Position: Sitting [facility] BP Diastolic 2018-09-27 13:48:00 91 mm[Hg] Location : [facility]; Position: Sitting [facility] Heart Rate 2018-09-27 13:48:00 75 /min [facility] BP Systolic 2018-09-27 13:35:00 163 mm[Hg] Location : RUE; Position: Sitting [facility] BP Diastolic 2018-09-27 13:35:00 85 mm[Hg] Location : [facility]; Position: Sitting [facility] Heart Rate 2018-09-27 13:35:00 82 /min [facility] Height 2018-09-27 13:35:00 64 [in_us] [facility] Weight 2018-09-27 13:35:00 249 [lb_av] [facility] Body Mass Index Calculated 2018-09-27 13:35:00 42.74 kg/m2 [facility] Temperature 2018-09-27 13:35:00 98.9 [degF] Method: Oral [facility] BP Systolic 2018-09-26 11:15:00 139 mm[Hg] [facility] BP Diastolic 2018-09-26 11:15:00 84 mm[Hg] [facility] Weight 2018-09-26 11:15:00 251 [lb_av] [facility] Body Mass Index Calculated 2018-09-26 11:15:00 43.08 kg/m2 [facility] Heart Rate 2018-09-26 11:15:00 65 /min [facility] BP Systolic 2018-07-17 10:03:00 118 mm[Hg] Location : RUE; Position: Sitting [facility] BP Diastolic 2018-07-17 10:03:00 86 mm[Hg] Location : [facility]; Position: [facility] Height 2018-07-17 10:03:00 64 [in_us] [facility] Weight 2018-07-17 10:03:00 254 [lb_av] [facility] Body Mass Index Calculated 2018-07-17 10:03:00 43.6 kg/m2 [facility] Temperature 2018-07-17 10:03:00 97.9 [degF] Method: Oral [facility] Heart Rate 2018-07-17 10:03:00 97 /min [facility] Procedures Procedure Date / Time Performed Performing Clinicia n Source [QL[facility]] URINALYSIS, COMPLETE W/REFLEX TO CULTURE 2018-12-14 00:00:00 [facility] [QL] LIPID PANEL 2018-12-14 00:00:00 [facility] [[facility]] HEMOGLOBIN A1c 2018-12-14 00:00:00 [facility] [[facility]] CMP W/EGFR 2018-12-14 00:00:00 [facility] [LH] CBC (without differential) 2018-12-14 00:00:00 [facility] [[facility]] MICROALBUMIN, RANDOM URINE (W/O CREATININE) 2018-12-14 00:00:00 [facility] [[facility]] CMP W/EGFR 2018-09-27 00:00:00 [facility] [[facility]] HEMOGLOBIN A1c 2018-09-27 00:00:00 [facility] [LH] CBC (without differential) 2018-09-27 00:00:00 [facility] [[facility]] TSH, 3RD GENERATION W/REFLEX TO FT4 2018-09-27 00:00:00 [facility] [[facility]] URINALYSIS, COMPLETE W/REFLEX TO CULTURE 2018-09-27 00:00:00 [facility] MA Breast mammogram screen bilateral [id number] 2018-09-27 00:00:00 [facility] [L] BMP8+eGFR 2018-07-17 00:00:00 [facility] [QL] LIPID PANEL 2018-07-17 00:00:00 [facility] [[facility]] HEPATITIS C ANTIBODY 2018-07-17 00:00:00 [facility] MA Breast mammogram screen bilateral [id number] 2018-07-17 00:00:00 [facility] [[facility]] HEMOGLOBIN A1c 2018-07-17 00:00:00 [facility] CPL - CK (Creatinine Kinase) 2018-07-17 00:00:00 [facility]] URINALYSIS, COMPLETE W/REFLEX TO CULTURE 2018-07-17 00:00:00 [facility] [[facility]] MICROALBUMIN, RANDOM URINE (W/CREATININE) 2018-07-17 00:00:00 [facility] History of Appendectomy [facility] History of Gastric bypass surgery [facility] History of Coronary artery stent placement [facility] Encounters Start Date/Time End Date/Time Encounter Type Admission Type Attending Clinicians Care Facility Care Department Encounter ID Source 2022-11-28 10:01:11 Outpatient [facility] [id number] [facility] 2021-07-22 10:36:41 Outpatient MYNOR SPARKS [facility] [id number] [facility] 2019-02-08 16:01:21 Outpatient [id number] 2021-02-24 07:39:00 2021-02-24 23:59:00 [id number] 2021-01-19 14:20:00 2021-01-19 23:59:00 Outpatient MYNOR SPARKS [id number] [facility] 2019-10-14 14:53:00 2019-10-14 14:53:00 Outpatient [facility] [id number] [facility] 2019-05-17 13:30:00 2019-05-17 13:30:00 Appointmen t; FRANTZ BLOUNT M.D. TANNU, NILESH, M.D. [facility] Psychiatry Outpatient Clinic - [facility] [id number] [facility] 2018-11-28 16:30:00 2018-11-28 16:30:00 Appointmen t; FRANTZ BLOUNT M.D. TANNU, NILESH, M.D. [facility] [id number] [facility] 2018-09-27 13:30:00 2018-09-27 13:30:00 Appointmen t; CARLOS VAN M.D. GOLOD, GEORGE, M.D. [facility] [id number] [facility] 2018-09-26 11:00:00 2018-09-26 11:00:00 Appointmen t; FRANTZ BLOUNT M.D. TANNU, NILESH, M.D. [facility] Psychiatry [id number] [facility] 2018-09-06 13:00:00 2018-09-06 13:00:00 Appointmen t; ESCOBAR QUEZADA, REGULATORY AFFAIRS SPECIALIST ESCOBAR QUEZADA, REGULATORY AFFAIRS SPECIALIST [facility] [id number] [facility] 2018-07-20 13:50:00 2018-07-20 13:50:00 Appointmen t; ANGEL, NURSE ANGEL, NURSE [facility] [place] [id number] [facility] 2018-07-17 10:00:00 2018-07-17 10:00:00 Appointmen t; CARLOS VAN M.D. GOLOD, GEORGE, M.D. [facility] [place] [id number] [facility] 2017-01-17 13:00:00 2017-01-17 13:00:00 Appointmen t; CHRISSIE CARRILLO M.D. SIMONICH, STEPHEN, M.D. [facility] [id number] [facility] Results Test Description Test Time Test Comments Results Result Co mments Source [facility]] BASIC METABOLIC PANEL [id number] 09:08:00* Test Item Value Reference Range Interpretation Comme nts GLUCOSE; Normal (test code = 1547-9) 83 mg/dl 65-99 N Fasting referenc e interval UREA NITROGEN (BUN) (test code = UREA NITROGEN (BUN)) 12 mg/dl 7-25 N CREATININE (test code = CREATININE) 1.13 mg/dl 0.50-0.99 For patients >49 years of age, the reference limitfor Creatinine is approximately 13% higher for peopleidentified as -Niue[place]. eGFR NON- (test code = eGFR NON-) 52 {ML/MIN/1.7} > OR = 60 eGFR (test code = eGFR ) 60 {ML/MIN/1.7} > OR = 60 N BUN/CREATININE RATIO (test code = BUN/CREATININE RATIO) 11 {CALC} 6-22 N SODIUM (test code = SODIUM) 142 mmol/L 135-146 N POTASSIUM (test code = POTASSIUM) 3.6 mmol/L 3.5-5.3 N CHLORIDE (test code = CHLORIDE) 102 mmol/L 98-110 N CARBON DIOXIDE (test code = CARBON DIOXIDE) 36 mmol/L 20-32 CALCIUM (test code = CALCIUM) 9.2 mg/dl 8.6-10.4 N [facility]] LIPID [id number] 09:08:00* Test Item Value Reference Range Interpretation Comme nts CHOLESTEROL, TOTAL; Above High Threshold (test code = 2093-3) 241 mg/dl <200 LDL-CHOLESTEROL; Above High Threshold (test code = 13692-0) 141 {MG/DL UMESH} Reference range: <100 Desirable range <100 mg/dL for primary prevention; <70 mg/dL for patients with CHD or diabetic patients with > or = 2 CHD risk factors. LDL-C is now calculated using the Shara calculation, which is a validated novel method providing better accuracy than the Friedewald equation in the estimation of LDL-C. Hans DOMÍNGUEZ et al. BRENDA. 2013;310(19): 5625-5853 (http://education.EvoApp.com/f aq/WQV333) TRIGLYCERIDES; Normal (test code = 2571-8) 145 mg/dl <150 N HDL CHOLESTEROL; Normal (test code = 2085-9) 73 mg/dl >50 N CHOL/HDLC RATIO (test code = CHOL/HDLC RATIO) 3.3 {CALC} <5.0 N NON HDL CHOLESTEROL (test code = NON HDL CHOLESTEROL) 168 {MG/DL UMESH} <130 For patients with diabetes plus 1 major ASCVD risk factor, treating to a non-HDL-C goal of <100 mg/dL (LDL-C of <70 mg/dL) is considered a therapeutic option. [facility]
--- NOTE | 2024-08-12 13:12 | RAD REPORT ---
Procedure: Chest Single View HISTORY: Chest pain COMPARISON: 2018 FINDINGS: The lungs appear clear of acute infiltrate. No significant pleural effusion noted. The heart is probably borderline enlarged. IMPRESSION: No acute abnormality is displayed.
[2024-08-12] MEDS ORDERED: ASPIRIN 81 MG CHEWABLE TABLET ONE (13:38)
[2024-08-12] MEDS ORDERED: HEPARIN 5000 UNIT/ML 1 ML VIAL ONE (13:38)
[2024-08-12] MEDS ORDERED: CLOPIDOGREL 75 MG TABLET ONE (13:38)
--- NOTE | 2024-08-12 13:38 | EDPHYS ---
Physician Documentation [facility] Name: Torie Cooper Age: 69 yrs Sex: Female : 1955 Arrival Date: 08/12/2024 Time: 12:21 Bed 19 Private MD: ED Physician Natalio Espinal HPI: 08/12 13:41 This 69 yrs old Female presents to ER via EMS with complaints of Chest Pain. rt 13:41 Patient presents to the ED with chest pain. Patient 1 episode of chest pain at 3, rt another 1 at 11 this afternoon. Reports of lightheadedness, weakness. Denies other acute complaints at this time, symptoms are severe in severity, no other aggravating or alleviating factors.. Historical: - Allergies: 12:26 PENICILLINS; mb9 12:26 Tetanus Vaccines \T\ Toxoid; mb9 - PMHx: 12:26 Angina; Myasthenia Gravis; Depression; [place]; PTSD; mb9 - PSHx: 12:26 None; mb9 - Immunization history:: Adult Immunizations up to date. - Infectious Disease History:: Denies. - Social history:: Smoking status: Patient denies any tobacco usage or history of. - Family history:: not pertinent. ROS: 13:41 Constitutional: Negative for fever, chills, and weight loss, Respiratory: Negative for rt shortness of breath, cough, wheezing, and pleuritic chest pain, Abdomen/GI: Negative for abdominal pain, nausea, vomiting, diarrhea, and constipation, MS/Extremity: Negative for injury and deformity, Skin: Negative for injury, rash, and discoloration, 13:41 Cardiovascular: Positive for chest pain, Negative for edema, 13:41 Neuro: Positive for near syncope, Negative for loss of consciousness, Exam: 13:41 Head/Face: Normocephalic, atraumatic. Chest/axilla: Normal chest wall appearance and rt motion. Nontender with no deformity. No lesions are appreciated. Cardiovascular: Regular rate and rhythm with a normal S1 and S2. No gallops, murmurs, or rubs. Normal PMI, no JVD. No pulse deficits. Respiratory: Lungs have equal breath sounds bilaterally, clear to auscultation and percussion. No rales, rhonchi or wheezes noted. No increased work of breathing, no retractions or nasal flaring. Abdomen/GI: Soft, non-tender, with normal bowel sounds. No distension or tympany. No guarding or rebound. No evidence of tenderness throughout. Skin: Warm, dry with normal turgor. Normal color with no rashes, no lesions, and no evidence of cellulitis. MS/ Extremity: Pulses equal, no cyanosis. Neurovascular intact. Full, normal range of motion. Neuro: Awake and alert, GCS 15, oriented to person, place, time, and situation. Cranial nerves II-XII grossly intact. Motor strength 5/5 in all extremities. Sensory grossly intact. Cerebellar exam normal. Normal gait. 13:41 Constitutional: The patient appears In acute distress 13:41 ECG was reviewed by the Attending Physician. rt Vital Signs: 12:24 BP 77 / 52; Pulse 54; Resp 16; Temp 97.5; Pulse Ox 100% ; Weight 86.18 kg; Height 5 ft. mb9 3 in. ; Pain 0/10; 12:38 BP 68 / 42; Pulse 50; Resp 16; Pulse Ox 97% on R/A; mb9 13:00 BP 81 / 53; Pulse 54; Resp 16; Pulse Ox 97% on R/A; mb9 13:15 BP 85 / 61; Pulse 50; Resp 16; Pulse Ox 98% on R/A; mb9 13:30 BP 103 / 62; Pulse 51; Resp 18; Pulse Ox 98% ; mb9 13:50 BP 77 / 50; Pulse 55; Resp 16; Pulse Ox 98% on R/A; mb9 13:55 BP 113 / 62; Pulse 62; Resp 16; Pulse Ox 97% ; mb9 14:05 BP 101 / 69; Pulse 64; Resp 16; Pulse Ox 98% on R/A; mb9 14:14 BP 103 / 54; Pulse 59; Resp 16; Pulse Ox 97% on R/A; mb9 14:30 BP 95 / 59; Pulse 70; Resp 16; Pulse Ox 100% on R/A; mb9 14:46 BP 110 / 59; Pulse 64; Resp 16; Pulse Ox 98% on R/A; mb9 15:00 BP 103 / 68; Pulse 68; Resp 16; Pulse Ox 98% on R/A; mb9 15:30 BP 109 / 94; Pulse 67; Resp 17; Pulse Ox 99% on R/A; mb9 12:24 Body Mass Index 33.66 (86.18 kg, 160.02 cm) mb9 12:24 Pain Scale: Adult mb9 MDM: 12:23 Medical Screening Exam initiated rt 14:20 Differential diagnosis: IL, chest pain, cardiogenic shock. HEART Score: History: Highly rt Suspicious (2), ECG: Significant ST-deviation (2), Age: > or = 65 years (2), Risk Factors: > or = 3 Risk factors for atherosclerotic disease (2), Troponin: > or = 3 x Normal Limit (2), Total Score = 10. The patient was given aspirin in the Emergency Department. Data reviewed: vital signs, nurses notes. Consideration of Admission/Observation Patient requires transfer for higher level of care. Management of patient was discussed with the following: Manager Commercial Sales: Spoke to Dr. Harris who recommends transfer. Independent interpretation of the following test(s) in the Emergency Department X-Ray: My interpretation is No consolidation seen on interpretation of x-ray images. Test considered but Not performed: CT: Low suspicion for PE, CT angiogram not decayed. Care significantly affected by the following chronic conditions: Coronary artery disease. Counseling: I had a detailed discussion with the patient and/or guardian regarding the historical points, exam findings, and any diagnostic results supporting the discharge/admit diagnosis, lab results, radiology results, the need to transfer to another facility. Response to treatment: the patient's symptoms have markedly improved after treatment. 08/12 12:26 Order name: Basic Metabolic Panel; Complete Time: 15:11 rt 08/12 12:26 Order name: CBC with Diff; Complete Time: 13:15 rt 08/12 12:26 Order name: LFT's; Complete Time: 15:11 rt 08/12 12:26 Order name: NT PRO-BNP; Complete Time: 15:11 rt 08/12 12:26 Order name: Troponin HS; Complete Time: 15:11 rt 08/12 13:28 Order name: Ptt, Activated; Complete Time: 15:11 mb9 08/12 13:28 Order name: PT-INR; Complete Time: 15:11 mb9 08/12 12:26 Order name: XRAY Chest (1 view); Complete Time: 13:15 rt 08/12 12:26 Order name: EKG; Complete Time: 12: rt 08/12 12:26 Order name: Cardiac monitoring; Complete Time: 12: rt 08/12 12: Order name: EKG - Nurse/Tech; Complete Time: 12 rt 08/12 12: Order name: IV Saline Lock; Complete Time: rt 08/12 12: Order name: Labs collected and sent; Complete Time: 12: rt 08/12 12: Order name: O2 Per Protocol; Complete Time: rt 08/12 12: Order name: O2 Sat Monitoring; Complete Time: : rt EC:41 Rate is 50 beats/min. Rhythm is regular, Sinus bradycardia with Right bundle branch rt block, ST depressions in inferolateral leads. QRS [place] is Normal. CA interval is normal. QT interval is normal. Administered Medications: 12:30 Not Given (hypotensive): nitroglycerin0.4 mg Sublingual once; every five minute if rt needed x3 12:37 Drug: fentaNYL (PF) IVP 50 mcg IVP once Route: IVP; Site: right antecubital; mb9 13:28 Follow up: Response: No adverse reaction mb9 12:38 Drug: NS 0.9% IV 1000 ml IV at 1 bolus Per protocol; to be given as a bolus over 60 mb9 minutes Route: IV; Rate: 1 bolus; Site: right antecubital; 13:28 Follow up: Response: No adverse reaction; IV Status: Completed infusion mb9 13:42 Drug: Clopidogrel PO 300 mg PO once Route: PO; mb9 14:01 Follow up: Response: No adverse reaction mb9 13:42 Drug: Aspirin PO Chewable Tablet 243 mg PO once; 81 mg tablets x 3 Route: PO; mb9 14:01 Follow up: Response: No adverse reaction mb9 13:44 Drug: Heparin ([place]-Bolus No thrombolytic) - HEParin IVP 60 units/kg IVP once; Max 5000 mb9 units {Co-Signature: cm10 (Ora Anderson RN).} Route: IVP; Site: right forearm; 14:01 Follow up: Response: No adverse reaction mb9 13:49 Drug: Heparin ([place] Drip) 12 units/kg/[place] - ([place] [address] units, D5W IV 500 ml) IV at mb9 calculated rate Per protocol; Max initial rate 1000 units/hr {Co-Signature: cm10 (Ora Anderson RN).} Route: IV; Rate: calculated rate; Site: right forearm; 14:01 Follow up: Response: No adverse reaction; IV Status: Infusion continued upon transfer mb9 13:50 Drug: DOBUTamine IV (250 mg/250mL premix) 2.5 mcg/kg/min IV at calculated rate See mb9 Administration Instructions; Recommended max rate 20 mcg/kg/min; Titrate 2.5 mcg/kg/min as often as every 5 minutes to achieve goal (see titration policy); Goal parameter MAP greater than 65 mmHg. Route: IV; Rate: calculated rate; Site: left antecubital; 14:01 Follow up: Response: No adverse reaction; IV Status: Infusion continued upon transfer mb9 Disposition: 14:20 Critical Care:. rt Disposition Summary: 08/12/24 13:38 Transfer Ordered Notes: Transfer Location: [facility] rt Reason: Higher level of care rt Condition: Critical rt Problem: new rt Symptoms: have improved rt Accepting Physician: (08/12/24 15:45) mb9 Diagnosis - Subsequent non-ST elevation (NSTEMI) myocardial infarction rt - Cardiogenic shock rt Forms: - Medication Reconciliation Form rt - SBAR form rt Critical care time excluding procedures: 14:20 Critical care time: Bedside Care: 30 minutes, Consultation: 15 minutes. Total time: 45 rt minutes Signatures: Dispatcher [employer] EDBarbra Burrows RN RN mb9 Natalio Espinal MD MD rt Ora Anderson RN cm10 Corrections: (The following items were deleted from the chart) 12:26 12:26 BASIC METABOLIC PANEL+C.LAB.BRZ ordered. EDMS EDMS 12:26 12:26 CBC+H.LAB.BRZ ordered. EDMS EDMS 12:26 12:26 HEPATIC FUNCTION+C.LAB.BRZ ordered. EDMS EDMS 12:26 12:26 PROBNP+C.LAB.BRZ ordered. EDMS EDMS 12:26 12:26 Troponin High Sensitivity+C.LAB.BRZ ordered. EDMS EDMS 15:45 13:38 rt mb9
--- NOTE | 2024-08-12 13:38 | ER ---
Nurse's Notes [facility] Name: Torie Cooper Age: 69 yrs Sex: Female : 1955 Arrival Date: 08/12/2024 Time: 12:21 Bed 19 Private MD: Diagnosis: Subsequent non-ST elevation (NSTEMI) myocardial infarction;Cardiogenic shock Presentation: 08/12 12:24 Chief complaint: EMS states: "toned out for CP that radiates to neck that started at mb9 0300 am this morning. 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 Pt states she is dizzy.". Coronavirus screen: Vaccine status: Patient reports being unvaccinated. Ebola Screen: No symptoms or risks identified at this time. Initial Sepsis Screen: Does the patient meet any 2 criteria? No. Patient's initial sepsis screen is negative. Does the patient have a suspected source of infection? No. Patient's initial sepsis screen is negative. Risk Assessment: Do you want to hurt yourself or someone else? Patient reports no desire to harm self or others. Onset of symptoms was August 12, 2024. 12:24 Acuity: RODRIGO 2 mb9 12:24 Method Of Arrival: EMS: [facility] mb9 Triage Assessment: 12:27 General: Appears uncomfortable, Behavior is cooperative. Pain: Complains of pain in mb9 chest Pain radiates to neck Quality of pain is described as throbbing. EENT: No signs and/or symptoms were reported regarding the EENT system. Neuro: [place] Agitation-Sedation Scale (RASS): 0 - Alert and Calm Level of Consciousness is awake, alert, obeys commands, Oriented to person, place, time, situation, Appropriate for age Reports dizziness. Cardiovascular: Reports chest pain, lightheadedness, Heart tones S1 S2 Patient's skin is warm and dry. Respiratory: Airway is patent Respiratory effort is even, unlabored, Respiratory pattern is regular, symmetrical. GI: Abdomen is round non-distended, Bowel sounds present X 4 quads. Abd is soft and non tender X 4 quads. Reports nausea. : No signs and/or symptoms were reported regarding the genitourinary system. Derm: Skin is pink, warm \\T\\ dry. Musculoskeletal: Range of motion: intact in all extremities. Historical: - Allergies: 12:26 PENICILLINS; mb9 12:26 Tetanus Vaccines \\T\\ Toxoid; mb9 - PMHx: 12:26 Angina; Myasthenia Gravis; Depression; [place]; PTSD; mb9 - PSHx: 12:26 None; mb9 - Immunization history:: Adult Immunizations up to date. - Infectious Disease History:: Denies. - Social history:: Smoking status: Patient denies any tobacco usage or history of. - Family history:: not pertinent. Screenin:28 [facility] ED Fall Risk Assessment (Adult) History of falling in the last 3 months, mb9 including since admission No falls in past 3 months (0 pts) Confusion or Disorientation No (0 pts) Intoxicated or Sedated No (0 pts) Impaired Gait No (0 pts) Mobility Assist Device Used No (0 pt) Altered Elimination No (0 pt) Score/Fall Risk Level 0 - 2 = Low Risk Oriented to surroundings, Maintained a safe environment, Educated pt \\T\\ family on fall prevention, incl call for assistance when getting out of bed. Abuse screen: Denies threats or abuse. Nutritional screening: No deficits noted. Tuberculosis screening: No symptoms or risk factors identified. Assessment: 12:28 Reassessment: see triage assessment. mb9 13:00 Reassessment: No changes from previously documented assessment. Patient and/or family mb9 updated on plan of care and expected duration. Pain level reassessed. Patient is alert, oriented x 3, equal unlabored respirations, skin warm/dry/pink. 14:00 Reassessment: Patient appears in no apparent distress at this time. No changes from mb9 previously documented assessment. Patient and/or family updated on plan of care and expected duration. Pain level reassessed. Patient is alert, oriented x 3, equal unlabored respirations, skin warm/dry/pink. 14:25 Reassessment: Attempted to call report to transferring nurse. States they will call mb9 back because the nurse is at lunch. 15:00 Reassessment: No changes from previously documented assessment. Patient and/or family mb9 updated on plan of care and expected duration. Pain level reassessed. Patient is alert, oriented x 3, equal unlabored respirations, skin warm/dry/pink. 15:41 Reassessment: Report given to [facility]. mb9 Vital Signs: 12:24 BP 77 / 52; Pulse 54; Resp 16; Temp 97.5; Pulse Ox 100% ; Weight 86.18 kg; Height 5 ft. mb9 3 in. ; Pain 0/10; 12:38 BP 68 / 42; Pulse 50; Resp 16; Pulse Ox 97% on R/A; mb9 13:00 BP 81 / 53; Pulse 54; Resp 16; Pulse Ox 97% on R/A; mb9 13:15 BP 85 / 61; Pulse 50; Resp 16; Pulse Ox 98% on R/A; mb9 13:30 BP 103 / 62; Pulse 51; Resp 18; Pulse Ox 98% ; mb9 13:50 BP 77 / 50; Pulse 55; Resp 16; Pulse Ox 98% on R/A; mb9 13:55 BP 113 / 62; Pulse 62; Resp 16; Pulse Ox 97% ; mb9 14:05 BP 101 / 69; Pulse 64; Resp 16; Pulse Ox 98% on R/A; mb9 14:14 BP 103 / 54; Pulse 59; Resp 16; Pulse Ox 97% on R/A; mb9 14:30 BP 95 / 59; Pulse 70; Resp 16; Pulse Ox 100% on R/A; mb9 14:46 BP 110 / 59; Pulse 64; Resp 16; Pulse Ox 98% on R/A; mb9 15:00 BP 103 / 68; Pulse 68; Resp 16; Pulse Ox 98% on R/A; mb9 15:30 BP 109 / 94; Pulse 67; Resp 17; Pulse Ox 99% on R/A; mb9 12:24 Body Mass Index 33.66 (86.18 kg, 160.02 cm) mb9 12:24 Pain Scale: Adult mb9 ED Course: 12:23 Patient arrived in ED. samuel 12:23 Natalio Espinal MD is Attending Physician. rt 12:23 Initial lab(s) drawn, by me, sent to lab. EKG done, by ED staff, reviewed by Natalio Espinal MD. Inserted saline lock: 18 gauge in right antecubital area, using aseptic technique. Blood collected. Flushed with 10 mL NS. 12:23 Arm band placed on. mb9 12:25 Placed in gown. Bed in low position. Call light in reach. Side rails up X 1. Provided samuel Education on: press call light if needing anything. Client placed on continuous cardiac and pulse oximetry monitoring. NIBP monitoring applied. monitor technician on. 12:26 Triage completed. mb9 12:28 Barbra Khanna, RN is Primary Nurse. mb9 12:42 Inserted saline lock: 18 gauge in left antecubital area, using aseptic technique. rs6 Flushed with 10 mL NS. 13:02 XRAY Chest (1 view) In Process Unspecified. EDMS 13:23 Notified ED physician of a critical lab result(s). TROP [id number]. hb 13:35 Inserted saline lock: 20 gauge in right forearm, using aseptic technique. mb9 13:[address] [facility]. bd 14:00 No provider procedures requiring assistance completed. mb9 14:00 Patient transferred, IV remains in place. mb9 14:10 pt accepted in transfer to [facility] by dr Valdes admin approval given by Dimple Fountain, pt going to ccu rm [id number]. Administered Medications: 12:30 Not Given (hypotensive): nitroglycerin0.4 mg Sublingual once; every five minute if rt needed x3 12:37 Drug: fentaNYL (PF) IVP 50 mcg IVP once Route: IVP; Site: right antecubital; mb9 13:28 Follow up: Response: No adverse reaction mb9 12:38 Drug: NS 0.9% IV 1000 ml IV at 1 bolus Per protocol; to be given as a bolus over 60 mb9 minutes Route: IV; Rate: 1 bolus; Site: right antecubital; 13:28 Follow up: Response: No adverse reaction; IV Status: Completed infusion mb9 13:42 Drug: Clopidogrel PO 300 mg PO once Route: PO; mb9 14:01 Follow up: Response: No adverse reaction mb9 13:42 Drug: Aspirin PO Chewable Tablet 243 mg PO once; 81 mg tablets x 3 Route: PO; mb9 14:01 Follow up: Response: No adverse reaction mb9 13:44 Drug: Heparin ([place]-Bolus No thrombolytic) - HEParin IVP 60 units/kg IVP once; Max 5000 mb9 units {Co-Signature: cm10 (Ora Anderson RN).} Route: IVP; Site: right forearm; 14:01 Follow up: Response: No adverse reaction mb9 13:49 Drug: Heparin ([place] Drip) 12 units/kg/[place] - ([place] [address] units, D5W IV 500 ml) IV at mb9 calculated rate Per protocol; Max initial rate 1000 units/hr {Co-Signature: cm10 (Ora Andersno RN).} Route: IV; Rate: calculated rate; Site: right forearm; 14:01 Follow up: Response: No adverse reaction; IV Status: Infusion continued upon transfer mb9 13:50 Drug: DOBUTamine IV (250 mg/250mL premix) 2.5 mcg/kg/min IV at calculated rate See mb9 Administration Instructions; Recommended max rate 20 mcg/kg/min; Titrate 2.5 mcg/kg/min as often as every 5 minutes to achieve goal (see titration policy); Goal parameter MAP greater than 65 mmHg. Route: IV; Rate: calculated rate; Site: left antecubital; 14:01 Follow up: Response: No adverse reaction; IV Status: Infusion continued upon transfer mb9 Medication: 13:00 VIS not applicable for this client. mb9 Outcome: 13:38 ER care complete, transfer ordered by . rt 14:45 Transferred by ground EMS to [facility], Transfer form completed. mb9 X-rays sent w/ patient. Note: report given to GENARO Coombs 14:45 Condition: stable 14:45 Instructed on the need for transfer, 15:45 Patient left the ED. mb9 Signatures: Dispatcher [employer] EDMS Edwina Fernandez Heather, RN RN hb Wilkerson, Mary Beth, RN RN mb9 Natalio Espinal MD MD rt Natalio Guerrero rs6 Ora Anderson RN cm10 Corrections: (The following items were deleted from the chart) 13:41 13:40 BP 85 / 61; Pulse 50bpm; Resp 16bpm; Pulse Ox 98% RA; mb9 mb9
[2024-08-12] MEDS ORDERED: HEPARIN/D5W 25,000 UNIT/500 ML BAG IV ONE (13:39)
[2024-08-12] MEDS ORDERED: DOBUTAMINE 250 MG/250 ML BAG IV ONE (13:39)
[2024-08-12 14:10] LABS: PT Prothrombin Time 11.1 SECONDS (9.4-12.5); PTT, Activated Partial Thromb 33.4 SECONDS (24.3-36.9); Protime INR 0.99
[2024-08-12 15:02] LABS: Troponin High Sensitivity 9139.4 pg/mL (<58.9)
[2024-08-12 17:52] VITALS: TEMP 97.5
[2024-08-12 18:08] VITALS: BP 109/94; O2SAT 99
--- NOTE | 2024-08-13 12:52 | EKG ---
Test Date: 2024-08-12 Test Time: 12:33:40 Electrical Accessories Assembler: BERNADETTE MEASUREMENT RESULTS: Intervals: Rate: 50 WV: 100 QRSD: 158 QT: 494 QTc: 450 Oracle: P: 6 WV: 100 QRS: 63 T: 4 INTERPRETIVE STATEMENTS: Sinus bradycardia with short WV Right bundle branch block Abnormal ECG Compared to ECG 06/24/2018 09:07:29 Short WV interval now present Sinus rhythm no longer present T-wave abnormality no longer present Possible ischemia no longer present Electronically Signed On 08-13-24 12:50:11 CDT by Ed Billy
== END 2024-08-12 15:45 | disposition short-term general hospital (02) ==
LOC: ER 12:21
DX: I22.2 Subsequent non-ST elevation (NSTEMI) myocardial infarction (principal); R57.0 Cardiogenic shock; I25.2 Old myocardial infarction
CPT/HCPCS: 93005; 85025; 80048; 36415; 85610; 80076; 85730; 84484; 83880; 71045; 99285; J1644; J3010; J7030; J1250

== ENCOUNTER 2024-10-06 22:58 | Emergency (ER) | payer OTHER ==
[2024-10-07 00:33] LABS: SARS-CoV-2 Antigen CONTROL BLUE LINE VIS/BG OK; SARS-CoV-2 Antigen Rapid Res Negative (Negative)
--- NOTE | 2024-10-07 00:37 | EDPHYS ---
Physician Documentation [facility] Name: Torie Cooper Age: 69 yrs Sex: Female : 1955 Arrival Date: 10/06/2024 Time: 22:58 Bed 5 Private MD: ED Physician Alon Greene HPI: 10/06 23:10 This 69 yrs old Female presents to ER via Unassigned with complaints of Flu Symptoms. kb 23:10 Pt is a 69 year old female who presents for cough, runny nose, body aches, fever, kb chills and headache that started yesterday. Denies chest pain, shortness of breath. States "I feel like I have the flu.". Historical: - Allergies: 23:24 PENICILLINS; ha1 23:24 Tetanus Vaccines \\T\\ Toxoid; ha1 - Home Meds: 23:24 diazepam 2 mg Oral tab 1 tab 3 times per day [Active]; trazodone 100 mg Oral tab 1 tab ha1 3 times per day [Active]; Wellbutrin SR 150 mg Oral TbER 1 tab three times a day [Active]; Lexapro 20 mg Oral tab 1 tab once daily [Active]; Effient 10 mg Oral tab 1 tab once daily [Active]; hydrochlorothiazide 12.5 mg Oral cap 1 cap once daily [Active]; losartan 100 mg Oral tab 1 tab once daily [Active]; pyidostgamine [Active]; isosorbide mononitrate 30 mg Oral Tb24 1 tab once daily [Active]; prednisolone 5 mg/5 mL Oral soln 5 mL once daily [Active]; - PMHx: 23:24 Angina; Depression; [place]; Myasthenia Gravis; PTSD; ha1 - Immunization history:: Adult Immunizations up to date, Client reports having NOT received the Covid vaccine. Last tetanus immunization: not immunized Flu vaccine is not up to date. - Infectious Disease History:: Denies. - Social history:: Smoking status: Patient denies any tobacco usage or history of. ROS: 23:10 Constitutional: As per HPI kb Exam: 23:10 Constitutional: This is a well developed, well nourished patient who is awake, alert, kb and in no acute distress. Head/Face: Normocephalic, atraumatic. ENT: Moist Mucous membranes Cardiovascular: Regular rate Respiratory: Respirations even and unlabored. No increased work of breathing. Talking in full sentences Abdomen/GI: Soft, non-tender. No distention Skin: Warm, dry with normal turgor. Normal color. MS/ Extremity: Pulses equal, no cyanosis. Neurovascular intact. Full, normal range of motion. Neuro: Awake and alert, GCS 15, oriented to person, place, time, and situation. Vital Signs: 23:03 BP 177 / 103; Pulse 80; Resp 19 S; Temp 99(T); Pulse Ox 97% on R/A; Weight 85.28 kg; ha1 Height 5 ft. 5 in. ; 23:57 BP 188 / 84; Pulse 69; Resp 17; Temp 99; Pulse Ox 97% ; Pain 4/10; bm8 10/07 00:43 BP 178 / 85; Pulse 65; Resp 19; Temp 99; Pulse Ox 98% ; Pain 4/10; bm8 10/06 23:03 Body Mass Index 31.28 (85.28 kg, 165.1 cm) ha1 23:57 Pain Scale: Adult bm8 10/07 00:43 Pain Scale: Adult bm8 Fior Coma Score: 10/06 23:57 Eye Response: spontaneous(4). Motor Response: obeys commands(6). Verbal Response: bm8 oriented(5). Total: 15. 10/07 00:43 Eye Response: spontaneous(4). Motor Response: obeys commands(6). Verbal Response: bm8 oriented(5). Total: 15. MDM: 10/06 23:03 Medical Screening Exam initiated 23:11 Differential diagnosis: flu, covid, rsv, uri, pneumonia. Data reviewed: vital signs, nurses notes. 10/07 00:36 I considered the following discharge prescriptions or medication management in the emergency department I discussed and recommended Over The Counter medications, Antibiotics: At this time antibiotics are not recommended, Antivirals: At this time, antivirals are not recommended. Test considered but Not performed: Labs: cbc, cmp considered but lungs clear bilaterally, vss, pt is nontoxic in appearance. Counseling: I had a detailed discussion with the patient and/or guardian regarding the historical points, exam findings, and any diagnostic results supporting the discharge/admit diagnosis, lab results, radiology results, the need for outpatient follow up, a family practitioner, to return to the emergency department if symptoms worsen or persist or if there are any questions or concerns that arise at home. 10/06 23:10 Order name: Flu; Complete Time: 00:33 kb 10/06 23:10 Order name: SARS-COV-2 Antigen Rapid; Complete Time: 00:34 kb 10/06 23:10 Order name: RSV; Complete Time: 00:34 kb 10/06 23:10 Order name: Chest Single View XRAY kb Administered Medications: No medications were administered Disposition Summary: 10/07/24 00:36 Discharge Ordered Notes: Location: Home kb Condition: Stable kb Diagnosis - Acute upper respiratory infection, unspecified kb Followup: kb - With: Emergency Department - When: As needed - Reason: Worsening of condition Followup: kb - With: Private Physician - When: 2 - 3 days - Reason: Recheck today's complaints, Continuance of care, Re-evaluation by your physician Discharge Instructions: - Discharge Summary Sheet kb - Upper Respiratory Infection, Adult, [id number] kb Forms: - Medication Reconciliation Form kb - Antibiotic Education kb - Prescription Opioid Use kb - Patient Portal Instructions kb - Leadership Thank You Letter kb Signatures: Dispatcher [employer] Luly Vo, MEDICAL ORDERLY-C MEDICAL ORDERLY-Ary Love RN RN ha1 Corrections: (The following items were deleted from the chart) 10/06 23:10 23:10 Chest Single View+RAD.RAD.BRZ ordered. EDVA EDMS
--- NOTE | 2024-10-07 00:37 | ER ---
Nurse's Notes [facility] Name: Torie Cooper Age: 69 yrs Sex: Female : 1955 Arrival Date: 10/06/2024 Time: 22:58 Bed 5 Private MD: Diagnosis: Acute upper respiratory infection, unspecified Presentation: 10/06 23:03 Chief complaint: Patient states: FEVER, COUGH, AND BODY ACHES. ha1 23:03 Coronavirus screen: Client denies travel out of the [place] in the last 14 days. Ebola ha1 Screen: No symptoms or risks identified at this time. Initial Sepsis Screen: Does the patient meet any 2 criteria? No. Patient's initial sepsis screen is negative. Does the patient have a suspected source of infection? No. Patient's initial sepsis screen is negative. Risk Assessment: Do you want to hurt yourself or someone else? Patient reports no desire to harm self or others. Onset of symptoms was October 06, 2024. 23:03 Method Of Arrival: Ambulatory ha1 23:03 Acuity: RODRIGO 4 ha1 Triage Assessment: 23:24 General: Appears uncomfortable, Behavior is calm, cooperative. Pain: Complains of pain ha1 in BODY ACHES Pain does not radiate. Quality of pain is described as aching. Neuro: Level of Consciousness is awake, alert, obeys commands, Oriented to person, place, time, situation. Cardiovascular: Patient's skin is warm and dry. Respiratory: Airway is patent Respiratory effort is even, unlabored, Respiratory pattern is regular, symmetrical. Historical: - Allergies: 23:24 PENICILLINS; ha1 23:24 Tetanus Vaccines \T\ Toxoid; ha1 - Home Meds: 23:24 diazepam 2 mg Oral tab 1 tab 3 times per day [Active]; trazodone 100 mg Oral tab 1 tab ha1 3 times per day [Active]; Wellbutrin SR 150 mg Oral TbER 1 tab three times a day [Active]; Lexapro 20 mg Oral tab 1 tab once daily [Active]; Effient 10 mg Oral tab 1 tab once daily [Active]; hydrochlorothiazide 12.5 mg Oral cap 1 cap once daily [Active]; losartan 100 mg Oral tab 1 tab once daily [Active]; pyidostgamine [Active]; isosorbide mononitrate 30 mg Oral Tb24 1 tab once daily [Active]; prednisolone 5 mg/5 mL Oral soln 5 mL once daily [Active]; - PMHx: 23:24 Angina; Depression; [place]; Myasthenia Gravis; PTSD; ha1 - Immunization history:: Adult Immunizations up to date, Client reports having NOT received the Covid vaccine. Last tetanus immunization: not immunized Flu vaccine is not up to date. - Infectious Disease History:: Denies. - Social history:: Smoking status: Patient denies any tobacco usage or history of. Screenin:57 [facility] ED Fall Risk Assessment (Adult) History of falling in the last 3 months, bm8 including since admission No falls in past 3 months (0 pts) Confusion or Disorientation No (0 pts) Intoxicated or Sedated No (0 pts) Impaired Gait No (0 pts) Mobility Assist Device Used No (0 pt) Altered Elimination No (0 pt) Score/Fall Risk Level 0 - 2 = Low Risk Oriented to surroundings, Maintained a safe environment, Educated pt \T\ family on fall prevention, incl call for assistance when getting out of bed, Assessed \T\ reinforced patient's understanding of fall precautions, Hourly rounding (assess needs \T\ fall precautionary measures) done, Used ambulatory aids as needed (educated on \T\ assisted with), Used gait belt as appropriate. Abuse screen: Denies threats or abuse. Nutritional screening: No deficits noted. Tuberculosis screening: No symptoms or risk factors identified. Assessment: 23:54 Reassessment: Patient appears in no apparent distress at this time. Patient and/or bm8 family updated on plan of care and expected duration. Pain level reassessed. Patient is alert, oriented x 3, equal unlabored respirations, skin warm/dry/pink. Pain: Complains of pain in generalized body aches Pain currently is 4 out of 10 on a pain scale. Neuro: No deficits noted. Level of Consciousness is awake, alert, obeys commands, Oriented to person, place, time, situation, Appropriate for age. Cardiovascular: Denies chest pain, Capillary refill < 3 seconds in bilateral fingers Patient's skin is warm and dry. Respiratory: Reports cough that is non-productive, Airway is patent Trachea midline Respiratory effort is even, unlabored, Respiratory pattern is regular, symmetrical, Breath sounds are clear bilaterally. GI: No signs and/or symptoms were reported involving the gastrointestinal system. : No signs and/or symptoms were reported regarding the genitourinary system. EENT: Throat is clear bilaterally with gag reflex present. Derm: No signs and/or symptoms reported regarding the dermatologic system. Musculoskeletal: Circulation, motion, and sensation intact. Capillary refill < 3 seconds, in bilateral fingers. Range of motion: intact in all extremities, Reports generalized body aches. 10/07 00:43 Reassessment: Patient appears in no apparent distress at this time. No changes from bm8 previously documented assessment. Patient and/or family updated on plan of care and expected duration. Pain level reassessed. Patient is alert, oriented x 3, equal unlabored respirations, skin warm/dry/pink. Patient states feeling better. Vital Signs: 10/06 23:03 BP 177 / 103; Pulse 80; Resp 19 S; Temp 99(T); Pulse Ox 97% on R/A; Weight 85.28 kg; ha1 Height 5 ft. 5 in. ; 23:57 BP 188 / 84; Pulse 69; Resp 17; Temp 99; Pulse Ox 97% ; Pain 4/10; bm8 10/07 00:43 BP 178 / 85; Pulse 65; Resp 19; Temp 99; Pulse Ox 98% ; Pain 4/10; bm8 10/06 23:03 Body Mass Index 31.28 (85.28 kg, 165.1 cm) ha1 23:57 Pain Scale: Adult bm8 10/07 00:43 Pain Scale: Adult bm8 Lamoure Coma Score: 10/06 23:57 Eye Response: spontaneous(4). Motor Response: obeys commands(6). Verbal Response: bm8 oriented(5). Total: 15. 10/07 00:43 Eye Response: spontaneous(4). Motor Response: obeys commands(6). Verbal Response: bm8 oriented(5). Total: 15. ED Course: 10/06 23:01 Patient arrived in ED. ra3 23:03 Luly Bruner FNP-C [facility]. kb 23:03 Alon Greene MD is Attending Physician. kb 23:15 Edwin Barfield, RN is Primary Nurse. bm8 23:21 Chest Single View XRAY In Process Unspecified. EDMS 23:24 Triage completed. ha1 23:57 Patient has correct armband on for positive identification. Bed in low position. Call bm8 light in reach. Side rails up X 1. Adult w/ patient. Provided Education on:. Client placed on continuous cardiac and pulse oximetry monitoring. NIBP monitoring applied. Pulse ox on. NIBP on. 23:57 No provider procedures requiring assistance completed. COVID swab sent to lab. Flu bm8 and/or RSV swab sent to lab. Patient did not have IV access during this emergency room visit. Patient maintains SpO2 saturation greater than 95% on room air. 10/07 00:43 Provided Education on: post er care. bm8 00:45 Arm band placed on right wrist. bm8 Administered Medications: No medications were administered Medication: 10/06 23:57 VIS not applicable for this client. bm8 Outcome: 10/07 00:36 Discharge ordered by . kb 00:43 Discharged to home ambulatory, bm8 00:43 Condition: stable 00:43 Discharge instructions given to patient, Instructed on discharge instructions, follow up and referral plans. medication usage, safety practices, Demonstrated understanding of instructions, follow-up care, medications, 00:45 Patient left the ED. bm8 Signatures: Dispatcher [employer] EDMS Luly Bruner, CHARGE ATTENDANT-C CHARGE ATTENDANT-Ary Love, RN RN 1 Vanessa Kelly 3 Edwin Barfield, RN RN bm8
[2024-10-07 00:56] VITALS: TEMP 99
[2024-10-07 00:59] VITALS: BP 178/85; O2SAT 98
--- NOTE | 2024-10-07 07:07 | RAD REPORT ---
EXAM: XR Chest, 1 View CLINICAL HISTORY: Cough, fever. TECHNIQUE: Frontal view of the chest. COMPARISON: XR Chest 08/12/2024. FINDINGS: Lungs: Unremarkable. No consolidation. Pleural space: Unremarkable. No pneumothorax. Heart: The cardiac silhouette is mildly to moderately enlarged, stable, in part accentuated by port able technique. Mediastinum: Unremarkable. Normal mediastinal contour. Bones/joints: Multilevel spondylosis. No acute fracture. Vasculature: Thoracic aortic atherosclerosis. IMPRESSION: No acute disease. Electronically signed by: Derek Jaime MD 10/06/2024 11:53 PM [facility] Due to temporary technical issues with the PACS/[employer] reporting system, reports are being paulino d by the in-house radiologist without review as a courtesy to ensure prompt reporting the interpreting radiologist is fully responsible for the content of the report. Transcribed Date/Time: 10/07/2024 7:06 AM
== END 2024-10-07 00:45 | disposition home or self-care (01) ==
LOC: ER 22:58
DX: J06.9 Acute upper respiratory infection, unspecified (principal); Z11.52 Encounter for screening for COVID-19; Z28.310 Unvaccinated for COVID-19
CPT/HCPCS: 36415; 71045; 87804; 87807; 87811; 99283

== ENCOUNTER 2025-01-28 13:04 | Inpatient (IN) | payer OTHER ==
[2025-01-28] MEDS ORDERED: ONDANSETRON 4 MG/2 ML VIAL ONE (13:40)
[2025-01-28] MEDS ORDERED: NA CHLORIDE 0.9% 500 ML ONE (13:40)
[2025-01-28 14:12] LABS: Absolute Basophils 0.1 K/uL (0-0.5); Absolute Eosinophils 0.1 K/uL (0-0.5); Absolute Lymphocytes (CBC) 1.6 K/uL (0.7-4.9); Absolute Monocytes 1.5 K/uL (0.1-1.3); Absolute Neutrophil 19.4 K/uL (1.8-8.0); Basophils % 0.4 % (0-1.3); Eosinophils % 0.2 % (0-4.4); Hematocrit 33.3 % (36.0-45.0); Hemoglobin 11.3 g/dL (12.0-15.0); Lymphocytes % 6.9 % (15.3-44.8); MCH 28.9 pg (27.0-35.0); MCHC 34.1 g/dL (32.0-36.0); MPV 8.3 fL (7.6-11.3); Monocytes % 6.8 % (3.3-12.3); Neutrophils % 85.7 % (41.7-73.7); Platelets 302 thou/uL (152-406); RBC Red Blood Cell Count 3.91 M/uL (3.86-4.86); Red Cell Distribution Width 14.3 % (12.1-15.2)
[2025-01-28 14:14] LABS: Specific Gravity 1.012 (1.005-1.030); Sqamous Epithelial <5 /HPF (None Seen); Urine Bacteria <20 /HPF (<20); Urine Bilirubin 1+ (Negative); Urine Blood 1+ (Negative); Urine Clarity Extremely Turbid (Clear); Urine Color Yellow (Yellow); Urine Crystals Unidentified Few /HPF (None Seen); Urine Culture Reflex Order NOT NEEDED; Urine Glucose NEGATIVE (Negative); Urine Ketones NEGATIVE (Negative); Urine Microscopic Reflex YN ORDER UMIC; Urine Mucus Slight /HPF (None Seen); Urine Nitrite NEGATIVE (Negative); Urine Protein 1+ (Negative); Urine RBC <5 /HPF (None Seen); Urine Urobilinogen 1+ (Normal); Urine WBC <5 /HPF (<5)
[2025-01-28 15:01] LABS: ALT/SGPT < 14 U/L (13-56); AST/SGOT 12 U/L (15-37); Albumin 2.8 g/dL (3.4-5.0); Albumin/Globulin Ratio 0.6 (1.1-1.8); Alkaline Phosphatase 100 U/L (45-117); Anion Gap 7.8 mEq/L (5.0-15.0); BUN Blood Urea Nitrogen 21 mg/dL (7-18); Bicarbonate 36 mEq/L (21-32); Bilirubin Total 1.4 mg/dL (0.2-1.0); Globulin 4.5 g/dL (2.3-3.5); Glomerular Filtration Rate 29 ml/min (=/>90); Glucose Level 100 mg/dL (74-106); Lipase 17 U/L (13-75); Potassium 2.8 mEq/L (3.5-5.1); Protein, Total 7.3 g/dL (6.4-8.2); Sodium Level 136 mEq/L (136-145)
[2025-01-28] MEDS ORDERED: POTASSIUM CL SA 10 MEQ TAB PO ONE (15:25)
[2025-01-28] MEDS ORDERED: KCL 20 MEQ/100 mL IVPB 100 ML IV ONE (15:26)
[2025-01-28] MEDS ORDERED: NA CHLORIDE 0.9% 1,000 ML ONE (15:26)
--- NOTE | 2025-01-28 15:40 | RAD REPORT ---
EXAMINATION: Abdomen Pelvis Wo Contrast CLINICAL INDICATION: Female, 69 years old.ABD PAIN TECHNIQUE: CT abdomen and pelvis was performed, without IV contrast, as per department protocol. Axia l, sagittal and coronal reconstructions were obtained. One or more of the following dose reduction techniques were used: Automated exposure control, adjustment of the mA and/or kV according to the pat ient size, and/or iterative reconstruction. Unless otherwise specified, incidental findings do not require dedicated imaging follow-up. [id number]. IV CONTRAST: Not administered. COMPARISON: None FINDINGS: The lack of intravenous contrast limits the sensitivity of this exam for evaluation of solid visceral organs, vascular structures, and retroperitoneum. LOWER CHEST: No acute process identified.Mild cardiomegaly. Mild coronary artery calcifications. UPPER GI: Surgical changes along the proximal stomach. LIVER: No significant focal abnormality. GALLBLADDER/BILE DUCTS: No biliary ductal dilatation.? PANCREAS: No mass, ductal dilation, or fernando-pancreatic fluid. SPLEEN: Unremarkable. ADRENALS: No adrenal masses. KIDNEYS AND URETERS: No hydronephrosis.No suspicious renal mass.No renal calculi.Ureteral calculi. ABDOMINAL AORTA AND OTHER VESSELS: Mild atherosclerotic changes. PERITONEUM: No abnormal free fluid. No free air. LYMPH NODES: No pathologic lymphadenopathy. ABDOMINAL WALL: Unremarkable SMALL BOWEL/COLON: Inflammatory changes are present along the sigmoid colon. This is more segmental r ather than focal. No bowel obstruction.Appendix absent. URINARY BLADDER: Underdistended but grossly unremarkable. REPRODUCTIVE ORGANS: No pathologic process. MUSCULOSKELETAL: Multilevel degenerative changes in the spine. No acute fracture. ADDITIONAL FINDINGS: None. IMPRESSION: Inflammatory changes along the sigmoid colon could be secondary to either a short segment colitis or nonperforated diverticulitis.
--- NOTE | 2025-01-28 16:01 | ER ---
Nurse's Notes [facility] Name: Torie Cooper Age: 69 yrs Sex: Female : 1955 Arrival Date: 01/28/2025 Time: 13:04 Bed 8 Private MD: Diagnosis: Elevated white blood cell count;Hypokalemia;Acute kidney failure, unspecified;Diverticulitis of intestine, part unspecified, without perforation or abscess without bleeding Presentation: 01/28 13:15 Chief complaint: Patient states: she has been having lower abdominal and pelvic pain ap3 for approx 2 weeks, but has been at its worse the last 3 days. patient reports she has been having nausea and vomiting for three days with the pain. patient currently rates her pain as a 7/10 on the pain scale. Coronavirus screen: At this time, the client does not indicate any symptoms associated with coronavirus-19. Ebola Screen: No symptoms or risks identified at this time. Initial Sepsis Screen: Does the patient meet any 2 criteria? No. Patient's initial sepsis screen is negative. Does the patient have a suspected source of infection? No. Patient's initial sepsis screen is negative. Risk Assessment: Do you want to hurt yourself or someone else? Patient reports no desire to harm self or others. Onset of symptoms is unknown. 13:15 Method Of Arrival: Ambulatory ap3 13:15 Acuity: RODRIGO 3 ap3 Triage Assessment: 13:18 General: Appears uncomfortable, Behavior is calm, cooperative, appropriate for age. ap3 Pain: Complains of pain in suprapubic area, right lower quadrant, left lower quadrant and pelvis Pain currently is 7 out of 10 on a pain scale. Pain began two weeks ago. Pain: Quality of pain is described as pressure. Neuro: Level of Consciousness is awake, alert, obeys commands, Oriented to person, place, time, situation. Cardiovascular: Patient's skin is warm and dry. Respiratory: Airway is patent Respiratory effort is even, unlabored, Respiratory pattern is regular, symmetrical. GI: Reports nausea, vomiting. Historical: - Allergies: 13:18 PENICILLINS; ap3 13:18 Tetanus Vaccines \T\ Toxoid; ap3 - PMHx: 13:18 Angina; Depression; [place]; Myasthenia Gravis; PTSD; ap3 - Immunization history:: Client reports receiving the 2nd dose of the Covid vaccine, Flu vaccine is not up to date. - Infectious Disease History:: Denies. - Social history:: Smoking status: Patient denies any tobacco usage or history of. Screenin:19 Abuse screen: Denies threats or abuse. Nutritional screening: No deficits noted. ap3 Tuberculosis screening: No symptoms or risk factors identified. 14:[address] [facility] ED Fall Risk Assessment (Adult) History of falling in the last 3 months, ld1 including since admission No falls in past 3 months (0 pts) Confusion or Disorientation No (0 pts) Intoxicated or Sedated No (0 pts) Impaired Gait No (0 pts) Mobility Assist Device Used No (0 pt) Altered Elimination No (0 pt) Score/Fall Risk Level 0 - 2 = Low Risk Oriented to surroundings, Hourly rounding (assess needs \T\ fall precautionary measures) done. Assessment: 14:05 General: Appears in no apparent distress. comfortable, Behavior is calm, cooperative, ld1 appropriate for age. Pain: Complains of pain in right lower quadrant and left lower quadrant Pain does not radiate. Pain currently is 8 out of 10 on a pain scale. Quality of pain is described as throbbing, Pain began suddenly. Neuro: Level of Consciousness is awake, alert, obeys commands, Oriented to person, place, time, situation. Cardiovascular: Capillary refill < 3 seconds Patient's skin is warm and dry. Respiratory: Airway is patent Respiratory effort is even, unlabored. GI: Abdomen is round non-distended, Bowel sounds present X 4 quads. Abd is soft Abd is non tender. : No signs and/or symptoms were reported regarding the genitourinary system. EENT: No signs and/or symptoms were reported regarding the EENT system. Derm: No signs and/or symptoms reported regarding the dermatologic system. 15:50 Reassessment: No changes from previously documented assessment. Patient and/or family ll1 updated on plan of care and expected duration. Pain level reassessed. Patient is alert, oriented x 3, equal unlabored respirations, skin warm/dry/pink. 17:53 Reassessment: No changes from previously documented assessment. Patient and/or family ll1 updated on plan of care and expected duration. Pain level reassessed. Patient is alert, oriented x 3, equal unlabored respirations, skin warm/dry/pink. Vital Signs: 13:15 BP 113 / 59; Pulse 68; Resp 17; Temp 98.5; Pulse Ox 97% ; Weight 86.18 kg; Height 5 ft. ap3 3 in. ; Pain 7/10; 14:05 BP 113 / 56; Pulse 61; Resp 18; Pulse Ox 95% on R/A; ld1 17:00 BP 124 / 61; Pulse 65; Resp 18; Temp 98.5; Pulse Ox 94% ; ll1 17:53 BP 145 / 78; Pulse 62; Resp 17; Temp 98.5; Pulse Ox 94% ; ll1 13:15 Body Mass Index 33.66 (86.18 kg, 160.02 cm) ap3 13:15 Pain Scale: Adult ap3 ED Course: 13:08 Patient arrived in ED. al6 13:08 [facility]C [facility]. kb 13:08 Alon Greene MD is Attending Physician. kb 13:18 Triage completed. ap3 13:20 Arm band placed on right wrist. ap3 13:20 Patient has correct armband on for positive identification. ap3 13:29 Marci Barbosa, GENARO is Primary Nurse. ld1 14:00 Urinalysis w/ reflexes Sent. ld1 14:05 No provider procedures requiring assistance completed. Inserted saline lock: 22 gauge ld1 in right antecubital area, using aseptic technique. Blood collected. Flushed with 10 mL NS. 15:02 Radiology exam delayed due to lab results not completed at this time. (BUN/Creatinine). nj 15:14 Abdomen In Process Unspecified. EDMS 15:59 Aneudy Newell MD is Hospitalizing Provider. kb 18:02 Provided Education on: ER procedures and process. ll1 18:02 Patient admitted, IV remains in place. ll1 Administered Medications: 14:00 Drug: NS 0.9% IV 500 ml 500 ml IV at 1 bolus once; to be given as a bolus over 30 ld1 minutes Volume: 500 ml; Route: IV; Rate: 1 bolus; Site: right antecubital; 17:22 Follow up: Response: No adverse reaction; IV Status: Completed infusion; IV Intake: ll1 500ml 14:00 Drug: Ondansetron IVP 4 mg IVP once; over 2 minutes Route: IVP; Site: right antecubital;ld1 17:22 Follow up: Response: No adverse reaction ll1 15:49 Drug: Potassium Chloride PO 40 mEq PO once Route: PO; ll1 17:23 Follow up: Response: No adverse reaction ll1 15:49 Drug: Potassium Chloride IV 20 mEq IV at calculated rate once; administer over 1-2 ll1 hours Route: IV; Rate: calculated rate; Site: right antecubital; 17:23 Follow up: Response: No adverse reaction; IV Status: Completed infusion; IV Intake: ld1 100ml 16:45 Drug: Ciprofloxacin IVPB 400 mg 200 ml IVPB once over 60 mins Volume: 200 ml; Route: ld1 IVPB; Infused Over: 60 mins; Site: right antecubital; 16:45 Drug: metroNIDAZOLE IVPB 500 mg 100 ml IVPB at 200 ml/hr once over 30 mins Volume: 100 ld1 ml; Route: IVPB; Rate: 200 ml/hr; Infused Over: 30 mins; Site: right antecubital; 17:24 Follow up: IV Status: Infusion continued ld1 18:03 Follow up: Response: No adverse reaction; IV Status: Completed infusion; IV Intake: ll1 100ml 17:24 Drug: NS 0.9% IV 1000 ml IV at 1000 ml once; to be given as a bolus over 60 minutes ld1 Route: IV; Rate: 1000 ml; Site: right antecubital; 18:02 Follow up: Response: No adverse reaction; IV Status: Infusion continued; IV Intake: ll1 300ml Medication: 14:05 VIS not applicable for this client. ld1 Intake: 17:22 IV: 500ml; Total: 500ml. ll1 17:23 IV: 100ml; Total: 600ml. ld1 18:02 IV: 300ml; Total: 900ml. ll1 18:03 IV: 100ml; Total: 1000ml. ll1 Outcome: 15:59 Decision to Hospitalize by Provider. clayton 18:01 Admitted to Med/surg accompanied by tech, via wheelchair, room 231, with chart, Report ll1 called to faxed to 2nd, received by Elisabet 18:01 Condition: stable 18:01 Instructed on the need for admit, 18:43 Patient left the ED. ll1 Signatures: Dispatcher [employer] EDLuly Clayton, [employer]-CkAlfredo Sterling Amanda, RN RN ap3 Inga Campbell RN RN ll1 Marci Barbosa RN RN ld1 Aruna Giordano
--- NOTE | 2025-01-28 16:01 | EDPHYS ---
Physician Documentation [facility] Name: Torie Cooper Age: 69 yrs Sex: Female : 1955 Arrival Date: 01/28/2025 Time: 13:04 Bed 8 Private MD: ED Physician Alon Greene HPI: 01/28 13:24 This 69 yrs old Female presents to ER via Ambulatory with complaints of Abdominal Pain, kb Dizziness. 13:24 Patient is a 69-year-old female who presents for lower abdominal pain, chills, nausea, kb vomiting, diarrhea and decreased appetite. States the lower abdominal pain started about 2 weeks ago insidiously gotten worse, the other symptoms started 3 days ago. Reports pain with urination. Denies fever.. Historical: - Allergies: 13:18 PENICILLINS; ap3 13:18 Tetanus Vaccines \T\ Toxoid; ap3 - PMHx: 13:18 Angina; Depression; OK; Myasthenia Gravis; PTSD; ap3 - Immunization history:: Client reports receiving the 2nd dose of the Covid vaccine, Flu vaccine is not up to date. - Infectious Disease History:: Denies. - Social history:: Smoking status: Patient denies any tobacco usage or history of. ROS: 13:24 Constitutional: As per HPI kb Exam: 13:24 Constitutional: This is a well developed, well nourished patient who is awake, alert, kb and in no acute distress. Head/Face: Normocephalic, atraumatic. ENT: Moist Mucous membranes Cardiovascular: Regular rate Respiratory: Respirations even and unlabored. No increased work of breathing. Talking in full sentences Skin: Warm, dry with normal turgor. Normal color. MS/ Extremity: Pulses equal, no cyanosis. Neurovascular intact. Full, normal range of motion. Neuro: Awake and alert, GCS 15, oriented to person, place, time, and situation. 13:24 Abdomen/GI: Inspection: abdomen appears normal, Bowel sounds: normal, Palpation: soft, in all quadrants, moderate abdominal tenderness, in the suprapubic area, right lower quadrant and left lower quadrant, Vital Signs: 13:15 BP 113 / 59; Pulse 68; Resp 17; Temp 98.5; Pulse Ox 97% ; Weight 86.18 kg; Height 5 ft. ap3 3 in. ; Pain 7/10; 14:05 BP 113 / 56; Pulse 61; Resp 18; Pulse Ox 95% on R/A; ld1 17:00 BP 124 / 61; Pulse 65; Resp 18; Temp 98.5; Pulse Ox 94% ; ll1 17:53 BP 145 / 78; Pulse 62; Resp 17; Temp 98.5; Pulse Ox 94% ; ll1 13:15 Body Mass Index 33.66 (86.18 kg, 160.02 cm) ap3 13:15 Pain Scale: Adult ap3 MDM: 13:08 Medical Screening Exam initiated kb 15:58 Data reviewed: vital signs, nurses notes. kb 15:58 Differential diagnosis: diverticulitis, non-specific abd pain, pancreatitis, kb Pyelonephritis, urinary tract infection. Consideration of Admission/Observation Patient was admitted/placed on observation. Escalation of care including admission/observation considered. Management of patient was discussed with the following: Hospitalist: Hospitalist team, pt accepted for admission under Dr Newell. Counseling: I had a detailed discussion with the patient and/or guardian regarding the historical points, exam findings, and any diagnostic results supporting the discharge/admit diagnosis, lab results, radiology results, the need for further work-up and treatment in the hospital. 01/28 13:24 Order name: CBC with Diff kb 01/28 13:24 Order name: CMP; Complete Time: 15:01 01/28 13:24 Order name: Lipase; Complete Time: 15:01 01/28 13:24 Order name: Urinalysis w/ reflexes; Complete Time: 14:25 01/28 15:51 Order name: Blood Culture Adult (2) 01/28 15:51 Order name: Lactate w/ 2H reflex if indic. 01/28 15:51 Order name: Protime (+inr) 01/28 15:51 Order name: Ptt, Activated 01/28 17:18 Order name: UAM la1 01/28 17:23 Order name: Comprehensive Metabolic Panel [facility] 01/28 17:23 Order name: Comprehensive Metabolic Panel [facility] 01/28 17:23 Order name: Comprehensive Metabolic Panel [facility] 01/28 17:23 Order name: Comprehensive Metabolic Panel [facility] 01/28 17:23 Order name: Comprehensive Metabolic Panel [facility] 01/28 17:23 Order name: Comprehensive Metabolic Panel [facility] 01/28 17:23 Order name: Creatine Phosphokinase EDMS 01/28 17:23 Order name: Creatine Phosphokinase EDMS 01/28 17:23 Order name: Magnesium EDMS 01/28 17:23 Order name: Magnesium EDMS 01/28 17:23 Order name: Magnesium EDMS 01/28 17:23 Order name: Magnesium EDMS 01/28 17:23 Order name: Magnesium EDMS 01/28 17:23 Order name: Magnesium EDMS 01/28 17:23 Order name: Phosphorus EDMS 01/28 17:23 Order name: Phosphorus EDMS 01/28 17:23 Order name: CBC with Automated Diff EDMS 01/28 17:23 Order name: CBC with Automated Diff EDMS 01/28 17:23 Order name: CBC with Automated Diff EDMS 01/28 17:23 Order name: CBC with Automated Diff EDMS 01/28 17:23 Order name: CBC with Automated Diff EDMS 01/28 17:23 Order name: CBC with Automated Diff EDMS 01/28 17:23 Order name: Urinalysis w/ reflexes EDMS 01/28 17:24 Order name: Phosphorus EDMS 01/28 17:24 Order name: Phosphorus EDMS 01/28 17:24 Order name: Phosphorus EDMS 01/28 17:24 Order name: Phosphorus EDMS 01/28 17:24 Order name: T4 Free EDMS 01/28 17:24 Order name: T4 Free EDMS 01/28 17:24 Order name: Thyroid Stimulating Hormone EDMS 01/28 17:24 Order name: Thyroid Stimulating Hormone EDMS 01/28 15:06 Order name: Abdomen ; Complete Time: 15:43 EDMS 01/28 13:24 Order name: IV Saline Lock; Complete Time: 14:00 kb 01/28 13:24 Order name: Labs collected and sent; Complete Time: 14:00 kb Administered Medications: 14:00 Drug: NS 0.9% IV 500 ml 500 ml IV at 1 bolus once; to be given as a bolus over 30 ld1 minutes Volume: 500 ml; Route: IV; Rate: 1 bolus; Site: right antecubital; 17:22 Follow up: Response: No adverse reaction; IV Status: Completed infusion; IV Intake: ll1 500ml 14:00 Drug: Ondansetron IVP 4 mg IVP once; over 2 minutes Route: IVP; Site: right antecubital;ld1 17:22 Follow up: Response: No adverse reaction ll1 15:49 Drug: Potassium Chloride PO 40 mEq PO once Route: PO; ll1 17:23 Follow up: Response: No adverse reaction ll1 15:49 Drug: Potassium Chloride IV 20 mEq IV at calculated rate once; administer over 1-2 ll1 hours Route: IV; Rate: calculated rate; Site: right antecubital; 17:23 Follow up: Response: No adverse reaction; IV Status: Completed infusion; IV Intake: ld1 100ml 16:45 Drug: Ciprofloxacin IVPB 400 mg 200 ml IVPB once over 60 mins Volume: 200 ml; Route: ld1 IVPB; Infused Over: 60 mins; Site: right antecubital; 16:45 Drug: metroNIDAZOLE IVPB 500 mg 100 ml IVPB at 200 ml/hr once over 30 mins Volume: 100 ld1 ml; Route: IVPB; Rate: 200 ml/hr; Infused Over: 30 mins; Site: right antecubital; 17:24 Follow up: IV Status: Infusion continued ld1 18:03 Follow up: Response: No adverse reaction; IV Status: Completed infusion; IV Intake: ll1 100ml 17:24 Drug: NS 0.9% IV 1000 ml IV at 1000 ml once; to be given as a bolus over 60 minutes ld1 Route: IV; Rate: 1000 ml; Site: right antecubital; 18:02 Follow up: Response: No adverse reaction; IV Status: Infusion continued; IV Intake: ll1 300ml Disposition: 01/29 14:37 Co-signature as Attending Physician, Alon Greene MD I agree with the assessment and jaxson plan of care. Disposition Summary: 01/28/25 15:59 Hospitalization Ordered Notes: Hospitalization Status: Inpatient Admission kb Provider: Aneudy Newell Location: Telemetry/[facility]Sur (Inpatient) kb Condition: Stable kb Problem: new kb Symptoms: are unchanged kb Bed/Room Type: Standard Room Assignment: 231(01/28/25 17:24) bd Diagnosis - Elevated white blood cell count kb - Hypokalemia kb - Acute kidney failure, unspecified kb - Diverticulitis of intestine, part unspecified, without perforation or abscess kb without bleeding Forms: - Medication Reconciliation Form kb - SBAR form kb - Leadership Thank You Letter kb Signatures: Dispatcher [employer] EDMS Luly Bruner, WAREHOUSE UNLOADER-C WAREHOUSE UNLOADER-Ckb Edwina Fernandez Corey, MD MD cha Attema, Lee, FNP-Esteban [id number] Kathy Beck, GENARO RN ap3 Inga Campbell RN RN ll1 Marci Barbosa RN RN ld1 Corrections: (The following items were deleted from the chart) 01/28 15:06 13:24 Abdomen Pelvis W Con+CT.RAD.BRZ ordered. EDMS EDMS 15:51 15:51 BLOOD CULTURE*+BA.LAB.BRZ ordered. EDMS EDMS 17:24 15:59 kb bd
[2025-01-28] MEDS ORDERED: METRONIDAZOLE 500mg IVPB 500 MG/100 ML BAG IV ONE (16:38)
[2025-01-28] MEDS ORDERED: CIPROFLOXACIN 400mg IV 400 MG/200 ML BAG IV ONE (16:38)
--- NOTE | 2025-01-28 17:29 | P.HP ---
Certification for Inpatient Patient admitted to: Inpatient With expected LOS: >2 Midnights Patient will require the following post-hospital care: None Practitioner: I am a practitioner with admitting privileges, knowledge of patient current condition, hospital course, and medical plan of care. Services: Services provided to patient in accordance with Admission requirements found in Title 42 Section 412.3 of the Code of Federal Regulations Patient History Date of Service: 01/28/25 Reason for admission: Diverticulitis, acute kidney injury History of Present Illness: 69-year-old female with history of myasthenia gravis, CAD with previous stents, asthma, hypertension presents to the emergency department with chief complaint of abdominal pain, nausea vomiting and diarrhea. She reports that has been having some abdominal comfort for the last couple weeks but the last 3 days been especially bad associated with 2-3 episodes of diarrhea daily and persistent nausea with occasional vomiting. She denies any dark starry stools or blood in her stool. She was evaluated in the emergency department and her labs were significant for a white blood cell count of 22.6 potassium 2.8 bicarb 36 chloride 95 creatinine 1.89 GFR 29 T. bili 1.4 UA not suggestive of urinary tract infection. Without contrast was performed which revealed inflammatory changes along the sigmoid colon could be secondary to either a short segment of colitis or nonperforated diverticulitis. Patient denies previous colonoscopies due to difficulties with prep. Patient will be admitted for diverticulitis, acute kidney injury, hypokalemia Allergies Penicillins Allergy (Verified 06/24/18 13:37) Hives/Rash tetanus and diphtheria toxoids Allergy (Verified 06/24/18 13:37) Anaphylaxis Home Medications: Buproprion S.r. [Wellbutrin Sr*] 150 mg PO TID 06/24/18 Escitalopram Oxalate [Lexapro] 20 mg PO DAILY 06/24/18 Isosorbide Mononitrate [Isosorbide Mononitrate ER] 30 mg PO DAILY 06/24/18 Losartan Potassium 100 mg PO DAILY 06/24/18 Nitroglycerin [Nitrostat*] 0.4 mg PO DAILY PRN 06/24/18 Trazodone HCl 150 mg PO BEDTIME 06/24/18 diazePAM [Diazepam] 2 mg PO BID 06/24/18 hydroCHLOROthiazide [Hydrochlorothiazide] 12.5 mg PO DAILY 06/24/18 prasugrel HCL [Prasugrel HCl] 10 mg PO DAILY 06/24/18 Albuterol Sulfate [Proair Hfa] 8.5 gm IH TID PRN #1 hfa.aer.ad 06/26/18 Benzonatate [Tessalon Perle] 200 mg PO TID PRN #10 cap 06/26/18 Fluticasone Propion/Salmeterol [Advair 250-50 Diskus] 1 each IH BID #1 blst.w.d ev 06/26/18 predniSONE [Prednisone*] 20 mg PO SEECOM #15 tab 06/26/18 - Past Medical/Surgical History Diabetic: Yes -: Coronary artery disease -: Myasthenia gravis -: PTSD -: Depression -: SC -: Asthma -: Hypertension -: Appendectomy -: Coronaries stents -: Gastric glenda Psychosocial/ Personal History: , lives alone - Social History Alcohol use: No CD- Drugs: No Caffeine use: Yes Review of Systems 10-point ROS is otherwise unremarkable Gastrointestinal: Nausea, Vomiting, Abdominal Pain, Diarrhea Physical Examination - Physical Exam General: Alert, In no apparent distress, Oriented x3 HEENT: Atraumatic, PERRLA, EOMI Neck: Supple, 2+ carotid pulse no bruit, No LAD, Without JVD or thyroid abnormality Respiratory: Clear to auscultation bilaterally, Normal air movement Cardiovascular: Regular rate/rhythm, Normal S1 S2 Gastrointestinal: Normal bowel sounds, Tenderness (Moderate left lower quadrant, suprapubic tenderness) Musculoskeletal: No tenderness Integumentary: No rashes Neurological: Normal speech, Normal strength at 5/5 x4 extr - Studies Laboratory Data (last 24 hrs) 01/28/25 01/28/25 13:54 13:54 WBC 22.60 H Hgb 11.3 L Hct 33.3 L Plt Count 302 Sodium 136 Potassium 2.8 L BUN 21 H Creatinine 1.89 H Glucose 100 Total Bilirubin 1.4 H AST 12 L ALT < 14 Alkaline Phosphatase 100 Lipase 17 Assessment and Plan - Plan Assessment: Colitis versus diverticulitis Acute kidney injury Hypokalemia History of CAD with stents Myasthenia gravis Asthma Hypertension Plan: Colitis versus diverticulitis Continue antibiotics Cipro/Flagyl Blood cultures obtained in EDwill follow N.p.o. overnight aside from sips of water and ice chips Reevaluate in the morning as far as diet goes Denies recent colonoscopies/has had issues with prep in the past Acute kidney injury Continue IV fluids overnight Recheck chemistries in the morning Hypokalemia Replaced in the ER Protocol in place History of CAD with stents Myasthenia gravis Asthma Hypertension Continue home medications when verified DVT PPX: Subcu heparin Code status: Full Discharge Plan: Home Plan to discharge in: 72 Hours - Advance Directives Does patient have a Living Will: No Does patient have a Durable POA for Healthcare: No - Code Status/Comfort Care Code Status Assessed: Yes (Full code) Critical Care: No Time Spent Managing Pts Care (In Minutes): 68
[2025-01-28] MEDS: MORPHINE 2 MG/ML SYR IV PRN (19:43)
[2025-01-28] MEDS: D5.45NS W/KCL 20MEQ 1,000 ML IV SCH (19:48)
[2025-01-28] MEDS: ONDANSETRON 4 MG (ODT) TAB PO PRN (19:52)
[2025-01-28 19:53] LABS: Platelet Estimate ADEQ; White Blood Cell Scan OK (OK)
[2025-01-28 19:54] LABS: Blood Morphology Comment NOT SEEN (NOT SEEN)
[2025-01-28 20:15] LABS: PT Prothrombin Time 13.2 SECONDS (10-13.0); PTT, Activated Partial Thromb 30.1 SECONDS (27.2-37.4); Protime INR 1.17
[2025-01-28] MEDS: HEPARIN 5000 UNIT/ML 1 ML VIAL SQ SCH (20:51)
[2025-01-29] MEDS: TRAMADOL HCL 50 MG TAB PO ONE (00:18)
[2025-01-29] MEDS: METRONIDAZOLE 500mg IVPB 500 MG/100 ML BAG IV SCH (00:19)
[2025-01-29 05:04] LABS: Absolute Lymphocytes (CBC) 0.9 K/uL (0.7-4.9); Absolute Monocytes 1.5 K/uL (0.1-1.3); Absolute Neutrophil 17.5 K/uL (1.8-8.0); Basophils % 0.1 % (0-1.3); Eosinophils % 0.2 % (0-4.4); Hematocrit 29.2 % (36.0-45.0); Hemoglobin 9.9 g/dL (12.0-15.0); Lymphocytes % 4.4 % (15.3-44.8); MCH 28.9 pg (27.0-35.0); MCHC 33.9 g/dL (32.0-36.0); Monocytes % 7.6 % (3.3-12.3); Nucleated Red Blood Cells % 0.1 % (0-0); Platelets 248 thou/uL (152-406); RBC Red Blood Cell Count 3.43 M/uL (3.86-4.86); Red Cell Distribution Width 14.3 % (12.1-15.2)
[2025-01-29 05:09] LABS: Neutrophils % 87.7 % (41.7-73.7)
[2025-01-29] MEDS ORDERED: ALBUTEROL INHALER 200 PUFF/6.7 GM IH PRN (06:31)
[2025-01-29 08:52] LABS: AST/SGOT 15 U/L (15-37); Albumin 2.3 g/dL (3.4-5.0); Albumin/Globulin Ratio 0.6 (1.1-1.8); Alkaline Phosphatase 86 U/L (45-117); BUN Blood Urea Nitrogen 19 mg/dL (7-18); Bicarbonate 33 mEq/L (21-32); Creatine Phosphokinase 110 U/L (26-192); Globulin 3.7 g/dL (2.3-3.5); Glomerular Filtration Rate 31 ml/min (=/>90); Glucose Level 146 mg/dL (74-106); Phosphorus 1.9 mg/dL (2.5-4.9); Sodium Level 137 mEq/L (136-145); Thyroid Stimulating Hormone 0.753 uIU/mL (0.358-3.740)
--- NOTE | 2025-01-29 08:53 | P.PN ---
Date of Service: 01/29/25 Subjective: Still with C/O abd pain Severe pain overnight but some improvement now diarrhea x1 overnight ROS: 10 point ROS as noted above, otherwise negative Physical exam GEN: Alert, oriented, NAD HEENT: Normal conjunctiva, sclera anicteric CV: Regular rate and rhythm, no edema Pulm: Nonlabored respirations on room air ABD: Soft, nontender, nondistended MSK: No joint tenderness Integumentary: No rashes Neuro: Normal speech, normal affect Vitals reviewed Assessment: Colitis versus diverticulitis Acute kidney injury Hypokalemia History of CAD with stents Myasthenia gravis Asthma Hypertension Plan: Colitis versus diverticulitis Continue antibiotics Cipro/Flagyl Blood cultures obtained in EDwill follow N.p.o. aside from sips of water and ice chips Reevaluate throughout the day/serial abd exams Denies recent colonoscopies/has had issues with prep in the past Consider surgical consult if there is worsening clinically Acute kidney injury Continue IV fluids overnight chemistry pending this morning Hypokalemia Replaced in the ER Protocol in place History of CAD with stents Myasthenia gravis Asthma Hypertension Continue home medications when verified DVT PPX: Subcu heparin Code status: Full Discharge Plan: Home Plan to discharge in: 72 Hours Time Spent Managing Pts Care (In Minutes): 35
[2025-01-29 08:59] LABS: ALT/SGPT < 14 U/L (13-56)
[2025-01-29] MEDS: SALMETEROL IH SCH (09:00)
[2025-01-29] MEDS: FLUTICASONE PROPION IH SCH (09:00)
[2025-01-29] MEDS: PYRIDOSTIGMINE 60 MG TABLET PO SCH (09:00)
[2025-01-29] MEDS: CIPROFLOXACIN 400mg IV 400 MG/200 ML BAG IV SCH (09:14)
[2025-01-29] MEDS: CLOPIDOGREL 75 MG TABLET PO SCH (09:15)
[2025-01-29] MEDS: ASPIRIN 81 MG CHEWABLE TABLET PO SCH (09:15)
[2025-01-29] MEDS: BUPROPION HCL XL 150 MG TAB PO SCH (09:15)
[2025-01-29] MEDS: LOSARTAN POTASSIUM 50 MG TABLET PO SCH (09:15)
[2025-01-29] MEDS: ESCITALOPRAM 20 MG TAB PO SCH (09:15)
[2025-01-29] MEDS: METOPROLOL TAR 25 MG TAB PO SCH (09:15)
[2025-01-29] MEDS: TRAMADOL HCL 50 MG TAB PO PRN (09:28)
[2025-01-29] MEDS: POTASSIUM PHOS IN 0.9 % NACL 15 MMOL/250 ML BAG IV ONE (12:45)
[2025-01-29] MEDS ORDERED: SODIUM CHLORIDE 0.9% 10ML INJ IV PRN ×2 (15:05→16:00)
[2025-01-29] MEDS: PANTOPRAZOLE 40 MG INJ IVP ONE (16:25)
[2025-01-29] MEDS: ROSUVASTATIN 10 MG TAB PO SCH (21:20)
[2025-01-29] MEDS: PRAZOSIN HCL 1 MG CAP PO SCH (21:20)
[2025-01-29] MEDS: TRAZODONE 150 MG TAB PO PRN (21:22)
[2025-01-29] MEDS: MORPHINE 4 MG/ML SYR IV PRN (21:23)
[2025-01-30 04:52] LABS: Absolute Lymphocytes (CBC) 0.8 K/uL (0.7-4.9); Absolute Monocytes 1.5 K/uL (0.1-1.3); Absolute Neutrophil 16.8 K/uL (1.8-8.0); Basophils % 0.1 % (0-1.3); Hematocrit 29.5 % (36.0-45.0); Hemoglobin 9.8 g/dL (12.0-15.0); Lymphocytes % 4.3 % (15.3-44.8); MCHC 33.2 g/dL (32.0-36.0); MCV 87.3 fL (80-100); MPV 8.5 fL (7.6-11.3); Monocytes % 7.9 % (3.3-12.3); Platelets 243 thou/uL (152-406); RBC Red Blood Cell Count 3.38 M/uL (3.86-4.86); Red Cell Distribution Width 14.4 % (12.1-15.2)
[2025-01-30 04:53] LABS: Neutrophils % 87.7 % (41.7-73.7)
[2025-01-30 05:15] LABS: Albumin 2.3 g/dL (3.4-5.0); Albumin/Globulin Ratio 0.6 (1.1-1.8); Anion Gap 7.7 mEq/L (5.0-15.0); Bilirubin Total 0.8 mg/dL (0.2-1.0); Phosphorus 4.8 mg/dL (2.5-4.9); Potassium 3.7 mEq/L (3.5-5.1); Protein, Total 6.3 g/dL (6.4-8.2)
[2025-01-30] MEDS: NA CHLORIDE 0.9% 1,000 ML IV SCH (06:55)
--- NOTE | 2025-01-30 08:46 | RAD REPORT ---
EXAMINATION: US RENAL CLINICAL INDICATION: Acute renal insufficiency TECHNIQUE: Real-time ultrasonography of the kidneys performed. COMPARISON: No prior exam. FINDINGS: Right kidney measures 10 cm with a normal echotexture. Left kidney measures 10 cm with normal echotexture. No hydronephrosis No gross abnormality bladder. IMPRESSION: No significant abnormalities displayed
--- NOTE | 2025-01-30 09:19 | P.PN ---
Date of Service: 01/30/25 Subjective: Some mild improvement in abd pain no acute events overnight ROS: 10 point ROS as noted above, otherwise negative Physical exam GEN: Alert, oriented, NAD HEENT: Normal conjunctiva, sclera anicteric CV: Regular rate and rhythm, no edema Pulm: Nonlabored respirations on room air ABD: Soft, mild-moderate LLQ/suprapubic tenderness, nondistended MSK: No joint tenderness Integumentary: No rashes Neuro: Normal speech, normal affect Vitals reviewed Assessment: Colitis versus diverticulitis Acute kidney injury Hypokalemia History of CAD with stents Myasthenia gravis Asthma Hypertension Plan: Colitis versus diverticulitis Continue antibiotics Cipro/Flagyl Blood cultures obtained in EDno growth in 24 hours Small amounts clear liquids-tolerating so far Reevaluate throughout the day/serial abd exams Denies recent colonoscopies/has had issues with prep in the past Consider surgical consult if there is worsening clinically Acute kidney injury mild worsening holding losartan renal US ordered and nephrology consult Hypokalemia Replaced in the ER DC protocol given elevated CR History of CAD with stents Myasthenia gravis Asthma Hypertension Continue home medications when verified DVT PPX: Subcu heparin Code status: Full Discharge Plan: Home Plan to discharge in: 72 Hours Time Spent Managing Pts Care (In Minutes): 35
[2025-01-30] MEDS: METOPROLOL TAR 25 MG TAB PO SCH (09:21)
[2025-01-30] MEDS: POTASSIUM CL SA 10 MEQ TAB PO ONE (09:26)
[2025-01-30] MEDS: PANTOPRAZOLE 40 MG INJ IVP SCH (09:26)
[2025-01-30] MEDS ORDERED: MORPHINE 2 MG/ML SYR IV PRN (10:02)
[2025-01-30] MEDS: NA CHLORIDE 0.9% 1,000 ML IV ONE (12:05)
--- NOTE | 2025-01-30 12:16 | RAD REPORT ---
Procedure: Chest Single View HISTORY: Shortness of breath COMPARISON: 2023 FINDINGS: Mild right perihilar opacity. Left lung appears clear. No significant pleural effusion noted. The heart is moderately enlarged IMPRESSION: Mild right perihilar opacity may represent areas of subsegmental atelectasis or mild infiltrate. PA manish nd lateral chest series recommended
--- NOTE | 2025-01-30 13:14 | CON ---
Date of Consultation: 01/30/2025 Reason For Consultation: Elevated BUN and creatinine, fluid management, electrolyte imbalance. History Of Present Illness: This is a pleasant 69-year-old female with significant past medical hist ory of myasthenia gravis, CAD without any congestive heart failure, status post PTCA, bronchial asthm a, hypertension, the patient came to the hospital complaining from abdominal pain with nausea and vom iting, gastroenteritis with diarrhea for the last 4 days. The patient upon arrival to the hospital, found to have elevation in BUN and creatinine 1.8 with GFR 29. For that reason, we have been consult ed. The patient denied taking any nonsteroidal. No recent exposure to any contrast. Reviewing the record for the patient back in July 2024, creatinine 1.2, GFR of 48. The patient after hydration, creatinine has jumped to 2.1 with GFR 25. The patient denied any rashes. The patient during the hospitalization, blood pressure had been marginally on the lower side on the 1 00. Past Medical History: Includes: 1. Myasthenia gravis. 2. CAD, status post PTCA, no congestive heart failure. 3. Hypertension. 4. Bronchial asthma. Allergies: TO PENICILLIN AND TETANUS. Home Medications: Include: 1. Bupropion. 2. Isosorbide. 3. Losartan. 4. Nitroglycerin. 5. Diazepam. 6. Trazodone. 7. Hydrochlorothiazide. 8. . Past Surgical History: Includes: 1. PTCA. 2. Appendectomy. 3. Gastric glenda. Social History: Denied smoking. Denied drinking. Denied drugs abuse. Review of Systems: Head and Neck: No red eye. No ear pain. GI: Has nausea, vomiting. Has diarrhea. : No polyuria. No dysuria. No hematuria. CONSUMER INSIGHTS SPECIALIST: No vaginal discharge. Respiratory: Has no shortness of breath. Cardiovascular: No chest pain. Endocrine: No polydipsia. Skin: No rash. Neuro: Has muscle weakness, myasthenia gravis. Musculoskeletal: Generalized weak. Physical Examination: Vital Signs: Blood pressure 118/61, pulse of 70, afebrile. Chest: Clear to auscultation. Heart: S1, S2. Regular. Abdomen: Soft, obese. Could not appreciate any organomegaly. Extremities: Trace edema. Neurologic: Alert. No focality. Laboratory Data: Back in July 2024, creatinine 1.2, GFR of 48. Upon admission, sodium 136, potas sium 2.8, bicarb 36, BUN 21, creatinine 1.8, GFR 29. Today, lab data: Sodium 138, potassium 3.7, bi carb 33, BUN 18, creatinine 2.1, GFR 25, calcium 8.7, albumin 2.3. WBC 19.2, hemoglobin 9.8. Urinal ysis was negative for infection. Renal ultrasound was not done. CT abdomen and pelvis was done with out contrast. No hydronephrosis. No calculus. Current Medications: The patient on, it includes: 1. Ciprofloxacin. 2. Metronidazole. 3. Plavix. 4. . 5. Ranexa. 6. Trazodone. 7. Pantoprazole. 8. IV fluid. Assessment And Plan: 1. Acute kidney injury secondary to prerenal on chronic kidney disease. The prerenal component secon yudelka to GI loss, secondary to dehydration, superimposed with ARB and hydrochlorothiazide, looked to m e still on the dry side. Obstructive uropathy has been ruled out. I am going to go ahead and bolus the patient with 1 L of normal saline and continue on the hydration. I agree with holding hydrochlor othiazide and holding the losartan. I am going to go ahead and hold the Ranexa for the time being, a nd we will follow up the patient. We will send for the workup to rule out any rhabdomyolysis and we will follow up. 2. Hypertension, currently blood pressure on the lower side with acute kidney injury. Hold hydrochlo rothiazide and losartan and we will follow up. 3. Hypokalemia. We will supplement. 4. Hyponatremia, depletional. We will continue hydration. Discontinue hydrochlorothiazide. We will send for basic workup. 5. Myasthenia gravis, as by Primary. 6. Coronary artery disease, stable. Follow up with the Primary. 7. Gastroenteritis. Continue current antibiotic, dose appropriate. Thank you, Dr. Newell, for allowing us to participate in the care of your patient. Time spent examining the patient [id number], reviewing data, lab and radiology, placing order, disc ussing the case with the patient, discussing the case with the teamcenter solution architect including hospitalist and nursing staff more than 75 minutes. TERESA Voice ID: [id number] Report ID: [id number]
[2025-01-31 04:59] LABS: Absolute Lymphocytes (CBC) 0.7 K/uL (0.7-4.9); Absolute Neutrophil 14.3 K/uL (1.8-8.0); Basophils % 0.3 % (0-1.3); Eosinophils % 0.2 % (0-4.4); Hematocrit 27.4 % (36.0-45.0); Hemoglobin 9.1 g/dL (12.0-15.0); Lymphocytes % 4.3 % (15.3-44.8); MCH 29.1 pg (27.0-35.0); MCHC 33.3 g/dL (32.0-36.0); MCV 87.5 fL (80-100); MPV 8.8 fL (7.6-11.3); Monocytes % 6.4 % (3.3-12.3); Percent Reticulocyte Count 0.83 % (0.4-2.05); Platelets 231 thou/uL (152-406); RBC Red Blood Cell Count 3.13 M/uL (3.86-4.86); Red Cell Distribution Width 14.5 % (12.1-15.2)
[2025-01-31 05:01] LABS: Neutrophils % 88.8 % (41.7-73.7)
[2025-01-31] MEDS: ONDANSETRON 4 MG/2 ML VIAL IV PRN (09:16)
[2025-01-31 10:10] LABS: Albumin 2.3 g/dL (3.4-5.0); Albumin/Globulin Ratio 0.6 (1.1-1.8); Anion Gap 9.5 mEq/L (5.0-15.0); Bilirubin Total 0.6 mg/dL (0.2-1.0); Ferritin 784.2 ng/mL (8-252); Globulin 3.9 g/dL (2.3-3.5); Magnesium 1.8 mg/dL (1.6-2.4); Phosphorus 3.4 mg/dL (2.5-4.9); Potassium 3.5 mEq/L (3.5-5.1); Protein, Total 6.2 g/dL (6.4-8.2); Thyroid Stimulating Hormone 0.364 uIU/mL (0.358-3.740)
--- NOTE | 2025-01-31 10:27 | P.PN ---
Date of Service: 01/31/25 Subjective: Lower abdominal pain improving-currently mild in nature Still has nausea, frequent belching Discussed belching this has been going on for many years now She admits to drinking around 8 carbonated beverage/Diet Coke per day typically Discussed cutting back on carbonated beverage, trial of PPI Patient/family requested transfer to [facility] or [facility] declined transfer stating no need/lateral in nature [facility] transfer still pending although they have not had any beds recently ROS: 10 point ROS as noted above, otherwise negative Physical exam GEN: Alert, oriented, NAD HEENT: Normal conjunctiva, sclera anicteric CV: Regular rate and rhythm, no edema Pulm: Nonlabored respirations on room air ABD: Soft, mild-moderate LLQ/suprapubic tenderness, nondistended MSK: No joint tenderness Integumentary: No rashes Neuro: Normal speech, normal affect Vitals reviewed Assessment: Colitis versus diverticulitis Acute kidney injury Hypokalemia History of CAD with stents Myasthenia gravis Asthma Hypertension Plan: Colitis versus diverticulitis Continue antibiotics Cipro/Flagyl Blood cultures obtained in EDno growth in 24 hours Tolerating clear liquids, will trial full liquids for lunch Reevaluate throughout the day/serial abd exams Denies recent colonoscopies/has had issues with prep in the past Consider surgical consult if there is worsening clinically Discussed need for outpatient colonoscopy 6 to 8 weeks after treatment course White blood cell count, abdominal pain improving Acute kidney injury Creatinine trending up holding losartan, hydrochlorothiazide renal US ordered-no abnormal findings/obstructive findings Bolused IV fluids yesterday by nephrology Wait for recommendations from nephrology, additional labs pending Hypokalemia Replaced in the ER DC protocol given elevated CR History of CAD with stents Myasthenia gravis Asthma Hypertension Home medications continued as appropriate, holding some given CHRISTIANA and lower blood pressures DVT PPX: Subcu heparin Code status: Full Discharge Plan: Home Plan to discharge in: 72 Hours Time Spent Managing Pts Care (In Minutes): 35
--- NOTE | 2025-01-31 12:47 | P.CNS ---
Date of Consult: 01/31/25 Chief Complaint: Diverticulitis, acute kidney injury History of Present Illness: Patient with PMH of CAD s/p PCI also had an abnormal stress test and was scheduled for coronary angiogram with her clinical transformation specialist today but had to cancel due to being in the hospital for diverticulitis and CHRISTIANA, denies active chest pain, report occasional chest pain but work up is in progress with her clinical transformation specialist, no other cardiac symptoms. Allergies Penicillins Allergy (Verified 06/24/18 13:37) Hives/Rash tetanus and diphtheria toxoids Allergy (Verified 06/24/18 13:37) Anaphylaxis Home medications list reviewed: Yes Home Medications: Escitalopram Oxalate [Lexapro] 20 mg PO DAILY 06/24/18 Losartan Potassium 100 mg PO DAILY 06/24/18 Nitroglycerin [Nitrostat*] 0.4 mg SL PRN PRN 06/24/18 Trazodone HCl 150 mg PO BEDTIME 06/24/18 hydroCHLOROthiazide [Hydrochlorothiazide] 25 mg PO DAILY 06/24/18 Albuterol Sulfate Hfa 108 (90base) Mcg/Act 1 puff IH Q4HP PRN 01/29/25 Aspirin 81 mg PO DAILY 01/29/25 Clopidogrel Bisulfate [Plavix] 75 mg PO DAILY 01/29/25 Etodolac 400 mg PO BID 01/29/25 Fluticasone Propion/Salmeterol [Wixela 100-50 Inhub] 1 puff IH BID 01/29/25 Metoprolol Tartrate 25 mg PO BID 01/29/25 Prazosin HCl 2 mg PO BEDTIME 01/29/25 Ranolazine [Ranolazine ER] 1 mg PO BID 01/29/25 Rosuvastatin Calcium 40 mg PO DAILY 01/29/25 buPROPion HCL [Wellbutrin Xl] 300 mg PO DAILY 01/29/25 predniSONE [Prednisone*] 20 mg PO BID 01/29/25 pyRIDostigmine bromide [Pyridostigmine [place]] 60 mg PO Q4HR 01/29/25 - Past Medical/Surgical History Diabetic: Yes -: Coronary artery disease -: Myasthenia gravis -: PTSD -: Depression -: [place] -: Asthma -: Hypertension -: Appendectomy -: Coronaries stents -: Gastric glenda Psychosocial/ Personal History: , lives alone - Family History Father Medical History: Heart disease Mother Medical History: Heart disease, GI disease, Diabetes - Social History Alcohol use: No CD- Drugs: No Caffeine use: No Place of Residence: Home Review of Systems 10-point ROS is otherwise unremarkable Physical Examination Temp Pulse Resp BP Pulse Ox 98.5 F 60 12 138/64 97 01/31/25 08:00 01/31/25 09:13 01/31/25 08:00 01/31/25 09:13 01/31/25 08:00 General: Alert, In no apparent distress HEENT: Atraumatic, PERRLA, Mucous membr. moist/pink, EOMI, Sclerae nonicteric Neck: Supple, 2+ carotid pulse no bruit, No LAD, Without JVD or thyroid abnormality Respiratory: Clear to auscultation bilaterally, Normal air movement Cardiovascular: Regular rate/rhythm, Normal S1 S2 Gastrointestinal: Normal bowel sounds, No tenderness Musculoskeletal: No tenderness Integumentary: No rashes Neurological: Normal gait, Normal speech, Normal tone, Normal affect Lymphatics: No axilla or inguinal lymphadenopathy - Problems (1) CAD (coronary artery disease) Onset Date: 06/26/18 Current Visit: No Status: Chronic Plan: Patient is already established with her clinical transformation specialist and advised to keep follow up with them since she had all work up done there, explained that there is no indications that she will need a coronary angiogram at this admission, especially she is having active diverticulitis and CHRISTIANA. continue ASA 81 mg daily continue Plavix 75 mg daily continue metoprolol continue crestor. Cardiology will sign off, please call with any questions.
[2025-01-31] MEDS: ONDANSETRON 4 MG (ODT) TAB PO PRN (17:44)
[2025-01-31] MEDS: LOPERAMIDE HCL 2 MG CAPSULE PO STA (18:27)
[2025-02-01 06:29] LABS: Absolute Eosinophils 0.1 K/uL (0-0.5); Absolute Lymphocytes (CBC) 0.9 K/uL (0.7-4.9); Absolute Neutrophil 11.6 K/uL (1.8-8.0); Basophils % 0.2 % (0-1.3); Eosinophils % 0.5 % (0-4.4); Hematocrit 27.3 % (36.0-45.0); Hemoglobin 9.3 g/dL (12.0-15.0); Lymphocytes % 6.5 % (15.3-44.8); MCHC 33.9 g/dL (32.0-36.0); MCV 85.5 fL (80-100); MPV 8.2 fL (7.6-11.3); Monocytes % 7.2 % (3.3-12.3); Neutrophils % 85.6 % (41.7-73.7); Nucleated Red Blood Cells % 0.1 % (0-0); Platelets 298 thou/uL (152-406); RBC Red Blood Cell Count 3.19 M/uL (3.86-4.86); Red Cell Distribution Width 14.6 % (12.1-15.2)
[2025-02-01 06:39] LABS: Albumin 2.3 g/dL (3.4-5.0); Albumin/Globulin Ratio 0.6 (1.1-1.8); Anion Gap 10.3 mEq/L (5.0-15.0); Bilirubin Total 0.6 mg/dL (0.2-1.0); Globulin 3.7 g/dL (2.3-3.5); Magnesium 1.8 mg/dL (1.6-2.4); Phosphorus 3.7 mg/dL (2.5-4.9); Potassium 3.3 mEq/L (3.5-5.1)
[2025-02-01 10:21] LABS: Platelet Estimate ADEQ; White Blood Cell Scan OK (OK)
[2025-02-01 10:22] LABS: Blood Morphology Comment NOTED (NOT SEEN); Ovalocytes SLIGHT
--- NOTE | 2025-02-01 15:53 | P.PN ---
Date of Service: 02/01/25 Subjective: Awake and oriented x 3 Torie was able to communicate the date she was admitted and describe her abdominal pain WBC slowly trending down Family concerned that Torie is not getting enough sleep and is confused. Will continue to monitor. ROS: 10 point ROS as noted above, otherwise negative Physical exam GEN: AAO x3, NAD, afebrile HEENT: Normal conjunctiva, sclera anicteric CV: RRR, no edema Pulm: Clear BBS, on room air ABD: Soft, mild-moderate LLQ/suprapubic tenderness, nondistended MSK: No joint tenderness Integumentary: No rashes Neuro: Normal speech, normal affect Vitals reviewed Assessment: Colitis versus diverticulitis Acute kidney injury Hypokalemia History of CAD with stents Myasthenia gravis Asthma Hypertension Plan: Colitis versus diverticulitis Continue antibiotics, changed cipro to rocephin /Flagyl Blood cultures obtained in EDno growth in 24 hours Tolerating clear liquids, will trial full liquids for lunch Reevaluate throughout the day/serial abd exams Denies recent colonoscopies/has had issues with prep in the past Consider surgical consult if there is worsening clinically Discussed need for outpatient colonoscopy 6 to 8 weeks after treatment course White blood cell count, abdominal pain improving Acute kidney injury Creatinine 3.14, GFR 16 holding losartan, hydrochlorothiazide renal US ordered-no abnormal findings/obstructive findings Bolused IV fluids by nephrology Wait for recommendations from nephrology, additional labs pending Hypokalemia Replaced in the ER DC protocol given elevated CR History of CAD with stents Myasthenia gravis Asthma Hypertension Home medications continued as appropriate, holding some given CHRISTIANA and lower blood pressures DVT ppx heparin Full code LOS 2 days
--- NOTE | 2025-02-02 00:16 | PN ---
Date of Progress Note: 02/01/2025 Chief Complaint: Elevated BUN and creatinine. Subjective: The patient was admitted to the hospital because of generalized weakness. She has multi ple medical problems including history of myasthenia gravis, coronary artery disease without congesti ve heart failure, status post PTCA, bronchial asthma, hypertension. The patient came to the hospital because of abdominal pain, nausea, vomiting, and gastroenteritis with diarrhea of the 4 days' durati on prior to this admission. Upon arrival to the hospital, she was found to have elevated BUN and cre atinine level. GFR was 29, creatinine 1.8. Previously back in 2023, creatinine level was 1.2, GFR 4 8. The patient to rule out rhabdomyolysis. Patient may require dialysis, if h er renal function recovers . SRAVANTHI/NATALIIAL Voice ID: [id number] Report ID: [id number]
[2025-02-02 06:48] LABS: Albumin 2.5 g/dL (3.4-5.0); Albumin/Globulin Ratio 0.6 (1.1-1.8); Anion Gap 11.2 mEq/L (5.0-15.0); Bilirubin Total 0.6 mg/dL (0.2-1.0); Globulin 4.2 g/dL (2.3-3.5); Magnesium 1.9 mg/dL (1.6-2.4); Potassium 3.2 mEq/L (3.5-5.1); Protein, Total 6.7 g/dL (6.4-8.2)
[2025-02-02] MEDS: CEFTRIAXONE 1,000 MG in NA CHLORIDE 0.9% 50 ML IVPB SCH (07:48)
[2025-02-02 08:15] LABS: Absolute Basophils 0.1 K/uL (0-0.5); Absolute Eosinophils 0.1 K/uL (0-0.5); Absolute Monocytes 1.4 K/uL (0.1-1.3); Absolute Neutrophil 12.7 K/uL (1.8-8.0); Basophils % 0.5 % (0-1.3); Eosinophils % 0.7 % (0-4.4); Hematocrit 29.2 % (36.0-45.0); Hemoglobin 9.8 g/dL (12.0-15.0); Lymphocytes % 6.5 % (15.3-44.8); MCHC 33.5 g/dL (32.0-36.0); MCV 86.4 fL (80-100); MPV 8.1 fL (7.6-11.3); Monocytes % 9.2 % (3.3-12.3); Neutrophils % 83.1 % (41.7-73.7); Nucleated Red Blood Cells % 0.1 % (0-0); Platelets 321 thou/uL (152-406); RBC Red Blood Cell Count 3.38 M/uL (3.86-4.86); Red Cell Distribution Width 14.4 % (12.1-15.2)
[2025-02-02 08:20] LABS: Hepatitis B Core Ab, Total Nonreactive (Nonreactive); Hepatitis B Core IgM Nonreactive (Nonreactive); Hepatitis B Surface Ab - Quant < 3.10 mIU/mL (<8.0)
[2025-02-02] MEDS: HYDRALAZINE HCL 20 MG/ML VIAL IV ONE (12:00)
--- NOTE | 2025-02-02 21:21 | PN ---
Date of Progress Note: 02/02/2025 Chief Complaint: Elevated BUN and creatinine. Subjective: The patient was admitted to the hospital because of generalized weakness. She has multi ple medical problems, including history of myasthenia gravis; coronary artery disease with congestive heart failure, status post PTCA; bronchial asthma; hypertension. The patient was complaining of abd ominal pain, nausea, vomiting, and gastroenteritis with diarrhea of 4 days' duration prior to this ad mission. Upon arrival to the hospital, she was found to have elevated BUN and creatinine level. GFR was 29, creatinine 1.8. Previous workup showed creatinine of 1.2 and GFR of 48 back in 2023. The p atient had workup done to rule out rhabdomyolysis. Review of Systems: Denies chest pain, palpitation. Physical Examination: Lungs: Clear to auscultation bilaterally. Heart: S1, S2. Abdomen: Soft, benign. Extremities: Minimal edema. Impression And Plan: 1. Acute kidney injury. Renal function has declined. There is no evidence of nephritis, although al lergic interstitial nephritis may need to be ruled out. If renal function does not improve, the bernardo ent will require renal biopsy. The patient needs to be rule out for urinary tract infection and urin alysis was sent. 2. Acute kidney injury on chronic kidney disease, prerenal component secondary to gastrointestinal lo ss secondary to volume depletion, superimposed with angiotensin receptor william and hydrochlorothiaz ngoc. The patient completed IV fluids. Continue by mouth hydration. Monitor renal function closely. 3. Avoid losartan and hydrochlorothiazide. Re-evaluate for any evidence of hydronephrosis if the pat ient has difficulty voiding. 4. Workup was done to rule out rhabdomyolysis. will be evaluated. SRAVANTHI/NATALIIAL Voice ID: [id number] Report ID: [id number]
[2025-02-03 06:06] LABS: Absolute Basophils 0.1 K/uL (0-0.5); Absolute Eosinophils 0.1 K/uL (0-0.5); Absolute Lymphocytes (CBC) 0.9 K/uL (0.7-4.9); Absolute Monocytes 1.4 K/uL (0.1-1.3); Absolute Neutrophil 10.9 K/uL (1.8-8.0); Basophils % 0.6 % (0-1.3); Eosinophils % 0.7 % (0-4.4); Hematocrit 28.4 % (36.0-45.0); Hemoglobin 9.6 g/dL (12.0-15.0); MCH 28.8 pg (27.0-35.0); MCHC 33.9 g/dL (32.0-36.0); MCV 85.1 fL (80-100); MPV 7.7 fL (7.6-11.3); Monocytes % 10.4 % (3.3-12.3); Neutrophils % 81.3 % (41.7-73.7); Nucleated Red Blood Cells % 0.1 % (0-0); Platelets 305 thou/uL (152-406); RBC Red Blood Cell Count 3.34 M/uL (3.86-4.86); Red Cell Distribution Width 14.7 % (12.1-15.2)
[2025-02-03 06:22] LABS: Albumin 2.2 g/dL (3.4-5.0); Anion Gap 9.4 mEq/L (5.0-15.0); Phosphorus 3.8 mg/dL (2.5-4.9); Potassium 3.4 mEq/L (3.5-5.1)
[2025-02-03] MEDS: NA CHLORIDE 0.9% 1,000 ML IV SCH (07:00)
[2025-02-03] MEDS: D5W 1,000 ML IV SCH (08:31)
--- NOTE | 2025-02-03 10:34 | RAD REPORT ---
EXAMINATION: CT ABDOMEN AND PELVIS WITHOUT CONTRAST CLINICAL INDICATION: Diverticulitis TECHNIQUE: CT abdomen and pelvis was performed, without IV contrast, as per department protocol. Axia l, sagittal and coronal reconstructions were obtained. One or more of the following dose reduction techniques were used: Automated exposure control, adjustment of the mA and kV according to the patien t size, and iterative reconstruction. Unless otherwise specified, incidental findings do not require dedicated imaging follow-up. COMPARISON: 01/28/2025 FINDINGS: The lack of intravenous contrast limits the sensitivity of this exam for evaluation of solid visceral organs, vascular structures, and retroperitoneum. LOWER CHEST: Linear atelectasis is present in the right lung base. Trace right pleural fluid. Postsur gical changes about the stomach noted near the esophagogastric junction. LIVER:Normal in size and contour. No focal lesion. Grossly unremarkable gallbladder. SPLEEN: Normal size. No focal lesion. PANCREAS: No mass, ductal dilation, or fernando-pancreatic fluid. ADRENALS: Normal; no mass. KIDNEYS AND URETERS: Normal size and contour. No hydronephrosis. URINARY BLADDER: Normal contour. GASTROINTESTINAL TRACT: Since comparison study the sigmoid colon remains thickened with numerous dive rticula present. Inflammatory changes or minimal fat. APPENDIX: Appendix not visualized, but no inflammatory changes in region of appendix. LYMPH NODES: No lymphadenopathy. MUSCULOSKELETAL: No acute or suspicious osseous abnormality. ADDITIONAL FINDINGS: None. IMPRESSION: No real change has occurred in the appearance of the sigmoid colon with wall thickening and numerous diverticula present. Recommend follow-up colonoscopy for direct visualization if not recently performed.
--- NOTE | 2025-02-03 10:53 | P.PN ---
Date of Service: 02/03/25 Subjective: Sitting in the bedside chair reports feeling well, UOP 1000 ml recorded Creatinine continues to rise, nephrology consulted Midline ordered d/t poor IV access Repeat CT showing no change, will continue FLD Anxiety/PTSD apparent this afternoon. Restarted Xanax ROS: 10 point ROS as noted above, otherwise negative Physical exam GEN: Alert and oriented x3, NAD HEENT: Normal conjunctiva, sclera anicteric CV: NSR, no edema Pulm: Clear BBS, on 2.5 LNC ABD: Soft on palpation, nondistended MSK: No joint tenderness Integumentary: No rashes Neuro: Normal speech, normal affect, anxious Vitals reviewed Assessment: Colitis versus diverticulitis Acute kidney injury Hypokalemia History of CAD with stents Myasthenia gravis Asthma Hypertension Anxiety Plan: Colitis versus diverticulitis Stopped antibiotics d/t poor IV line, midline ordered Blood cultures obtained in EDno growth in 24 hours Tolerating FLD Reevaluate throughout the day/serial abd exams Denies recent colonoscopies/has had issues with prep in the past Consider surgical consult if there is worsening clinically Discussed need for outpatient colonoscopy 6 to 8 weeks after treatment course White blood cell count, abdominal pain improving Repeat CT abd/pelvis reports "No real change has occurred in the appearance of the sigmoid colon with wall thickening and numerous diverticula present. Recommend follow-up colonoscopy for direct visualization if not recently performed." Acute kidney injury Creatinine 4.22, GFR 11 holding losartan, hydrochlorothiazide renal US ordered-no abnormal findings/obstructive findings Bolused IV fluids by nephrology nephrology following, additional labs pending Hypokalemia Replaced in the ER DC protocol given elevated CR History of CAD with stents Myasthenia gravis Asthma Hypertension Anxiety Home medications continued as appropriate, holding some given CHRISTIANA and lower blood pressures DVT ppx SCD Full code LOS 2 days
--- NOTE | 2025-02-03 11:00 | P.PN ---
Date of Service: 02/02/25 Subjective: Feeling well, conversing well creatinine continues to rise Nephrology following Urine testing in progress ROS: 10 point ROS as noted above, otherwise negative Physical exam GEN: Alert and oriented x3, NAD, afebrile CV: RRR, S1 S2 present Pulm: Clear BBS, on room air ABD: Soft on palpation, nondistended MSK: No joint tenderness Integumentary: No rashes Neuro: Normal speech, normal affect Vitals reviewed Assessment: Colitis versus diverticulitis Acute kidney injury Hypokalemia History of CAD with stents Myasthenia gravis Asthma Hypertension Plan: Colitis versus diverticulitis Continue antibiotics, changed cipro to rocephin /Flagyl Blood cultures obtained in EDno growth in 24 hours Tolerating clear liquids, will trial full liquids for lunch Reevaluate throughout the day/serial abd exams Denies recent colonoscopies/has had issues with prep in the past Consider surgical consult if there is worsening clinically Discussed need for outpatient colonoscopy 6 to 8 weeks after treatment course White blood cell count, abdominal pain improving Acute kidney injury Creatinine 3.66, GFR 13 Monitor closely holding losartan, hydrochlorothiazide renal US ordered-no abnormal findings/obstructive findings nephrology following, additional labs pending Hypokalemia Replaced in the ER DC protocol given elevated CR History of CAD with stents Myasthenia gravis Asthma Hypertension Home medications continued as appropriate, holding some given CHRISTIANA and lower blood pressures DVT ppx heparin Full code LOS 2 days
[2025-02-03] MEDS: Mupirocin NASAL 2 APPL/1 GM TUBE NAS SCH (20:38)
[2025-02-03 23:20] LABS: Specific Gravity 1.008 (1.005-1.030); Sqamous Epithelial <5 /HPF (None Seen); Urine Bacteria <20 /HPF (<20); Urine Bilirubin NEGATIVE (Negative); Urine Blood 3+ (Negative); Urine Clarity Extremely Turbid (Clear); Urine Color Light-Yellow (Yellow); Urine Crystals Unidentified Few /HPF (None Seen); Urine Glucose NEGATIVE (Negative); Urine Ketones NEGATIVE (Negative); Urine Micro Reflex YN NO BILL MICROSCOPIC; Urine Mucus Slight /HPF (None Seen); Urine Nitrite NEGATIVE (Negative); Urine Protein 2+ (Negative); Urine RBC <5 /HPF (None Seen); Urine Urobilinogen Normal (Normal)
[2025-02-03 23:45] LABS: MA/CREAT RATIO 885.3 (< 30.0); UR MICROALBUMIN 30.1 mg/dL (< 1.9); Urine Protein/Creatinine Ratio 4.47 ratio (<0.15)
--- NOTE | 2025-02-04 00:36 | PN ---
Date of Progress Note: 02/03/2025 Chief Complaint: Acute kidney injury. History Of Present Illness: Nephrology consultation was requested for elevated BUN and creatinine. The patient was admitted to the hospital because of generalized weakness. She has multiple medical p roblems including history of myasthenia gravis; coronary artery disease; congestive heart failure, st atus post PTCA; bronchial asthma; hypertension. The patient was complaining of abdominal pain, nause a, vomiting, and gastroenteritis with diarrhea of 4 days' duration prior to this admission. Upon arr ival to the hospital, she was found to have elevated BUN and creatinine level. GFR was 29, creatinin e 1.8. Previous workup showed creatinine of 1.2 and GFR of 48 in 2023. Review of Systems: The patient today denies nausea, vomiting. Physical Examination: Respiratory: Normal respiratory effort. Extremities: Minimal edema. Impression And Plan: 1. Acute kidney injury. Renal function has declined. The patient has nonoliguric urine output. Con tinue by mouth hydration as tolerated. Acute kidney injury on chronic kidney disease, stage 3. Ther e is prerenal component secondary to gastrointestinal loss, secondary to volume depletion superimpose d with angiotensin receptor william and hydrochlorothiazide. The patient has completed IV fluids. P lakesha is to re-evaluate blood work and monitor CT scan for gastroenteritis. Avoid losartan and hydroch lorothiazide. Monitor blood pressure closely. Adjust blood pressure medication. 2. Re-evaluate UA and urine culture. 3. The patient was taken off Cipro. Plan is to re-evaluate renal panel and make further recommendati on according to lab result. If renal function does not improve, patient may require renal biopsy, al though prior renal biopsy, she needs to have a urine culture evaluated to rule out urinary tract infe ction and to rule out bacteremia, as well as she needs to stay off anti-platelet medication. I discu ssed with the patient today that since urine output is improving, patient does not need renal biopsy and this is canceled and will not be ordered as of now. The patient agreed with above plan. SRAVANTHI/MODL Voice ID: [id number] Report ID: [id number]
[2025-02-04] MEDS: LOPERAMIDE HCL 2 MG CAPSULE PO ONE ×2 (01:57→02:06)
[2025-02-04 04:50] LABS: Absolute Eosinophils 0.1 K/uL (0-0.5); Absolute Lymphocytes (CBC) 0.8 K/uL (0.7-4.9); Absolute Monocytes 1.1 K/uL (0.1-1.3); Absolute Neutrophil 10.6 K/uL (1.8-8.0); Basophils % 0.3 % (0-1.3); Eosinophils % 0.4 % (0-4.4); Hemoglobin 9.8 g/dL (12.0-15.0); Lymphocytes % 6.6 % (15.3-44.8); MCH 28.9 pg (27.0-35.0); MCV 85.1 fL (80-100); MPV 7.6 fL (7.6-11.3); Neutrophils % 83.7 % (41.7-73.7); Nucleated Red Blood Cells % 0.1 % (0-0); Platelets 340 thou/uL (152-406); Red Cell Distribution Width 14.9 % (12.1-15.2)
[2025-02-04 05:09] LABS: Albumin 2.4 g/dL (3.4-5.0); Anion Gap 8.5 mEq/L (5.0-15.0); Phosphorus 4.1 mg/dL (2.5-4.9)
[2025-02-04 05:12] LABS: Potassium 2.5 mEq/L (3.5-5.1)
[2025-02-04] MEDS: KCL 20 MEQ/100 mL IVPB 20 MEQ/100 ML BAG IV SCH (06:03)
[2025-02-04] MEDS: ALPRAZOLAM 0.5 MG TABLET PO SCH (08:03)
[2025-02-04] MEDS: POTASSIUM CL SA 10 MEQ TAB PO ONE ×2 (10:14→20:26)
[2025-02-04] MEDS: LOPERAMIDE HCL 2 MG CAPSULE PO PRN (10:14)
[2025-02-04] MEDS: NA CHLORIDE 0.9% 1,000 ML IV ONE (10:14)
[2025-02-04] MEDS: LACTOBACILLUS/ACIDOPHILUS TAB PO SCH (10:14)
[2025-02-04] MEDS: AMLODIPINE 10 MG TAB PO SCH (10:33)
--- NOTE | 2025-02-04 10:46 | PN ---
Date of Progress Note: 02/04/2025 Subjective: The patient was admitted to the hospital with gastroenteritis, colitis. The patient had acute kidney injury. Differential diagnosis was prerenal, superimposed with ARB and hydrochlorothia zide, questionable of AIN, secondary to quinolone was suspected. For that reason, quinolone was disc ontinued. The patient's kidney function continue to decline even after holding quinolone. The patie nt's workup show nephrotic range of proteinuria. The patient had history of myasthenia gravis. The patient still had good urine output. 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 The patient did not have any thrombocytopenia. Physical Examination: Vital Signs: Blood pressure 184/91, pulse of 62, afebrile. The patient had good urine output voidin g 5 times and as I mentioned diarrhea. Chest: Clear to auscultation. Heart: S1, S2. Regular. Systolic murmur. Abdomen: Soft, nontender. No guarding or rebound. Extremities: No edema. Neuro: Alert and oriented x3. Nonfocal. No tremor. Laboratory Data: WBC 12.7, hemoglobin 9.8. Sodium 140, potassium 2.5, bicarb 26, BUN 34, creatinine 4.3, GFR of 11, calcium 8.8, phosphorus 4.1, albumin 2.4, corrected calcium is 10. Current Medications: The patient is on include metronidazole 500 t.i.d., metoprolol 25 b.i.d., rosuv astatin, citalopram, trazodone, loperamide, IV fluid D5 75 mL/hour. Assessment And Plan: 1. Acute kidney injury, unknown etiology. Differential diagnosis is prerenal, secondary to GI loss, superimposed with ARB and hydrochlorothiazide. Currently, kidney function plateaued. No uremic symp toms. No hyperkalemia or acidosis. Obstructive uropathy has been ruled out. The patient has signif icant proteinuria with nephrotic range proteinuria without any history of diabetes. Has history of a utoimmune disease of myasthenia gravis. I had long discussion with the patient by bedside about the action plan giving no uremic symptoms. No hyperkalemia or acidosis. I do not see the need to push f or any renal replacement therapy for the time being. We will continue to monitor the patient and jeffrey ch her carefully. 2. The patient received aspirin on Monday, so we will schedule the patient for kidney biopsy either Monday or next Monday if kidney function continue to decline. 3. Nephrotic range of proteinuria. Workup so far negative. Serum protein electrophoresis still pend ing and serology still pending. We will follow up. Plan for kidney biopsy either Monday or Monday n ext week. The patient verbalized understanding and agreed. 4. Hypokalemia secondary to GI loss. We will supplement aggressively. The patient received 60 mEq y , still going down, we will continue supplement. I am going to go ahead and check for magnes ium level for the patient and I am going to check for her TSH and we will follow up the patient. 5. Anemia with the presence of acute kidney injury to rule out light chain disease. Anemia workup burns s been sent. We will follow up. Given the active colitis, I am going to be hesitant to add any IV i buddy for the time being. We will monitor. 6. Colitis with gastroenteritis. Continue current antibiotic. Agree with holding quinolone. We yue shukla follow up with primary. RJ/RACHAEL Voice ID: [id number] Report ID: [id number]
[2025-02-04 11:14] LABS: Complement C3 140 mg/dL (83-193)
[2025-02-04] MEDS: LIDOCAINE 4% PATCH TOP SCH (12:42)
--- NOTE | 2025-02-04 13:31 | RAD REPORT ---
EXAM: 7 views of the cervical spine HISTORY: Neck pain pain in the back of the neck, mobility problems COMPARISON: None FINDINGS: AP, lateral, oblique, flexion/extension, and open mouth odontoid views of the cervical spin e obtained. There is disc thinning seen mid and lower cervical levels with small endplate osteophytes noted particularly prominent at C4-5, C5-6. Prevertebral soft tissues are unremarkable. F lexion and extension shows no significant alignment change. The odontoid is normal in lateral masses are symmetric. Mild carotid atherosclerosis. IMPRESSION: Mild to moderate multilevel cervical degenerative change without dynamic instability seen.
[2025-02-04 14:26] LABS: Abnormal Protein Band 1 REPORT; Albumin, (SPE) 2.6 g/dL (3.8-4.8); Alpha-1-Globulins 0.6 g/dL (0.2-0.3); Beta 1 Globulin 0.3 g/dL (0.4-0.6); Gamma Globulins 0.6 g/dL (0.8-1.7); INTERPRETATION REPORT; Total Protein 5.6 g/dL (6.1-8.1)
[2025-02-04] MEDS: METRONIDAZOLE 500mg IVPB 500 MG/100 ML BAG IV SCH (15:49)
[2025-02-05 00:06] VITALS: O2SAT 97
[2025-02-05 04:27] LABS: Absolute Basophils 0.1 K/uL (0-0.5); Absolute Eosinophils 0.1 K/uL (0-0.5); Absolute Lymphocytes (CBC) 0.9 K/uL (0.7-4.9); Absolute Monocytes 0.8 K/uL (0.1-1.3); Absolute Neutrophil 10.9 K/uL (1.8-8.0); Basophils % 0.7 % (0-1.3); Eosinophils % 0.8 % (0-4.4); Hematocrit 31.4 % (36.0-45.0); Hemoglobin 10.7 g/dL (12.0-15.0); MCH 28.6 pg (27.0-35.0); MCV 84.3 fL (80-100); MPV 7.1 fL (7.6-11.3); Monocytes % 6.4 % (3.3-12.3); Neutrophils % 85.1 % (41.7-73.7); Platelets 293 thou/uL (152-406); RBC Red Blood Cell Count 3.73 M/uL (3.86-4.86); Red Cell Distribution Width 15.1 % (12.1-15.2)
[2025-02-05 04:46] LABS: Albumin 2.3 g/dL (3.4-5.0); Anion Gap 9.4 mEq/L (5.0-15.0); Magnesium 1.8 mg/dL (1.6-2.4); Phosphorus 3.6 mg/dL (2.5-4.9); Potassium 3.4 mEq/L (3.5-5.1)
[2025-02-05] MEDS: MAGNESIUM SULFATE 1 gm IVPB 1 GM/100 ML BAG IV ONE (06:44)
[2025-02-05 06:50] VITALS: BMI 35.9
[2025-02-05 06:56] LABS: Blood Morphology Comment NOTED (NOT SEEN); Burr Cells 1+; Platelet Estimate ADEQ; White Blood Cell Scan OK (OK)
--- NOTE | 2025-02-05 07:16 | P.PN ---
Date of Service: 02/04/25 Subjective: C/O neck pain and diarrhea, stool studies ordered starting lactinex, lidocaine patch, neck xray with no acute findings ROS: 10 point ROS as noted above, otherwise negative Physical exam GEN: AAOx3, NAD CV: NSR, S1 S2 present Pulm: Clear BBS, nonlabored breathing, on room air ABD: Soft on palpation, nondistended MSK: No joint tenderness Integumentary: No rashes Neuro: Normal speech, normal affect Vitals reviewed Assessment: Colitis versus diverticulitis Acute kidney injury Hypokalemia History of CAD with stents Myasthenia gravis Asthma Hypertension Plan: Colitis versus diverticulitis Diarrhea Continue antibiotics, changed cipro to rocephin /Flagyl Blood cultures obtained in EDno growth in 24 hours Tolerating clear liquids, will trial full liquids for lunch Reevaluate throughout the day/serial abd exams Denies recent colonoscopies/has had issues with prep in the past Consider surgical consult if there is worsening clinically Discussed need for outpatient colonoscopy 6 to 8 weeks after treatment course White blood cell count, abdominal pain improving Stool studies ordered repeat CT abd/pelvis reports "No real change has occurred in the appearance of the sigmoid colon with wall thickening and numerous diverticula present. Recommend follow-up colonoscopy for direct visualization if not recently performed." Lactinex BID Neck pain -Cervial spine xray reports "Mild to moderate multilevel cervical degenerative change without dynamic instability seen." -lidocaine patch Acute kidney injury Creatinine 4.33, GFR 11, UOP 800 Monitor closely holding losartan, hydrochlorothiazide renal US ordered-no abnormal findings/obstructive findings nephrology following, additional labs pending Hypokalemia Replaced in the ER DC protocol given elevated CR History of CAD with stents Myasthenia gravis Asthma Hypertension Home medications continued as appropriate, holding some given CHRISTIANA and lower blood pressures DVT ppx heparin Full code LOS 2 days
[2025-02-05 07:45] VITALS: BP 163/79; TEMP 98.1
[2025-02-05] MEDS: POTASSIUM CL SA 10 MEQ TAB PO ONE (07:55)
[2025-02-05] MEDS: TRAMADOL HCL 50 MG TAB PO PRN (07:56)
[2025-02-05 08:37] LABS: C.diff Antigen/Toxin Ag neg : Tox neg (NEG : NEG); CDIFF INTERNAL NEG CONTROL White Background (WHITE BKGD); STOOL CONSISTENCY Liquid/Semi-Solid
[2025-02-05] MEDS ORDERED: HEPARIN 5000 UNIT/ML 1 ML VIAL SQ SCH (09:12)
[2025-02-05] MEDS ORDERED: NA CHLORIDE 0.9% 500 ML IV ONE (10:13)
[2025-02-05] MEDS ORDERED: FUROSEMIDE 40 MG/4 ML VIAL IV ONE (11:18)
--- NOTE | 2025-02-05 11:52 | PN ---
Date of Progress Note: 02/05/2025 Subjective: The patient still continued to have diarrhea. The patient's kidney function today plate aued. Physical Examination: Vital Signs: Blood pressure 163/79, pulse of 66, afebrile. Chest: Clear to auscultation. Heart: S1, S2. Regular. Abdomen: Soft, nontender. Extremities: Plus edema. Neurologic: Alert. No focality. Laboratory Data: Hemoglobin 10.7, WBC 12.8. Sodium 144, potassium 3.4, bicarb 25, BUN 29, creatinin e 4.3, GFR of 11. Calcium 8.6, phosphorus 3.6, magnesium 1.8. Current Medications: The patient is on include loperamide, KCl, IV fluid. Assessment And Plan: 1. Acute kidney injury. It was possible secondary to prerenal, losartan and hydrochlorothiazide, did not recover, looked to me slightly on the wet side. I am going to give the patient single dose of L asix and we will follow up. I had a long discussion with the patient in the presence of the daughter that if kidney function did not improve, the patient will need biopsy on Monday to rule out AIN. Cu rrently still her serology all negative, which is reassuring. 2. Anemia of chronic kidney disease, status post IV iron. Continue CORI. 3. Hypertension with the presence of acute kidney injury. Keep holding hydrochlorothiazide and ARB. We will monitor. 4. Hyponatremia. We will continue on the diuresis. 5. Nephrotic range proteinuria. So far serology was negative. Serum protein electrophoresis negativ e. We will proceed with a biopsy on Monday. 6. Colitis, gastroenteritis. As by Primary. RJ/RACHAEL Voice ID: [id number] Report ID: [id number]
[2025-02-05 12:09] LABS: Anti-Double Strand DNA Antibod <1 IU/mL (<=4)
--- NOTE | 2025-02-05 12:26 | P.DS ---
Admission Date: 01/28/25 Discharge Date: 02/05/25 Disposition: AMA-LEFT AGAINST MEDICAL ADVIC Reason for Admission: Diverticulitis, acute kidney injury Brief History of Present Illness: Diagnosis Colitis versus diverticulitis Acute kidney injury Hypokalemia History of CAD with stents Myasthenia gravis Asthma Hypertension HPI 01/28/2025 69-year-old female with history of myasthenia gravis, CAD with previous stents, asthma, hypertension presents to the emergency department with chief complaint of abdominal pain, nausea vomiting and diarrhea. She reports that has been having some abdominal comfort for the last couple weeks but the last 3 days been especially bad associated with 2-3 episodes of diarrhea daily and persistent nausea with occasional vomiting. She denies any dark starry stools or blood in her stool. She was evaluated in the emergency department and her labs were significant for a white blood cell count of 22.6 potassium 2.8 bicarb 36 chloride 95 creatinine 1.89 GFR 29 T. bili 1.4 UA not suggestive of urinary tract infection. Without contrast was performed which revealed inflammatory changes along the sigmoid colon could be secondary to either a short segment of colitis or nonperforated diverticulitis. Patient denies previous colonoscopies due to difficulties with prep. Patient will be admitted for diverticulitis, acute kidney injury, hypokalemia Hospital Course: Torie was admitted and treated for the following diagnoses Colitis versus diverticulitis Diarrhea stopped cipro/Flagyl once kidney function started to decline Blood cultures obtained in EDno growth in 24 hours Tolerated full liquids Reevaluated throughout the day/serial abd exams Denies recent colonoscopies/has had issues with prep in the past Consider surgical consult if there is worsening clinically Discussed need for outpatient colonoscopy 6 to 8 weeks after treatment course White blood cell count, abdominal pain improving Stool studies , Cdiff negative, no WBC repeat CT abd/pelvis reports "No real change has occurred in the appearance of the sigmoid colon with wall thickening and numerous diverticula present. Recommended follow-up colonoscopy for direct visualization if not recently performed." Lactinex BID tolerated Neck pain Cervial spine xray reports "Mild to moderate multilevel cervical degenerative change without dynamic instability seen." lidocaine patch which had helped Acute kidney injury Creatinine 4.33, GFR 11, UOP 800 Monitored closely held losartan and hydrochlorothiazide renal US ordered-no abnormal findings/obstructive findings nephrology followed and planned for renal biopsy Full evaluation performed, Hypokalemia monitored closely daily History of CAD with stents Myasthenia gravis Asthma Hypertension Home medications continued held losartan and hydrochlorothiazide given [place]RIST[place] and lower blood pressures Torie has decided to leave against medical advice and treatment. Her creatinine is 4.33, planned for renal biopsy for r/o AIN. Currently, Torie and her daughter are not willing to stay for continued treatment. They perfer to be in a hospital near the family. Family understands the danger and limitations that will likely occur from leaving the hospital without treatment, specifically , stroke, and becoming unstable hemodynamically. Physical exam GEN: Alert and orientedx3, uncomfortable CV: NSR, S1 S2 present Pulm: Clear BBS, symmetrical chest wall movement, on room air ABD: Soft on palpation, nondistended, active bowel sounds MSK: neck tenderness Integumentary: No rashes Neuro: Normal speech, normal affect Vital Signs/Physical Exam: Temp Pulse Resp BP Pulse Ox 98.1 F 66 15 163/79 H 100 02/05/25 07:44 02/05/25 07:44 02/05/25 07:44 02/05/25 07:44 02/05/25 07:44 Laboratory Data at Discharge: WBC 12.80 thou/uL (4.3-10.9) H 02/05/25 04:00 Hgb 10.7 g/dL (12.0-15.0) L D 02/05/25 04:00 Hct 31.4 % (36.0-45.0) L 02/05/25 04:00 Plt Count 293 thou/uL (152-406) 02/05/25 04:00 PT 13.2 SECONDS (10-13.0) H 01/28/25 19:45 INR 1.17 01/28/25 19:45 APTT 30.1 SECONDS (27.2-37.4) 01/28/25 19:45 Sodium 144 mEq/L (136-145) 02/05/25 04:00 Potassium Cancelled 02/05/25 16:00 BUN 29 mg/dL (7-18) H 02/05/25 04:00 Creatinine 4.33 mg/dL (0.55-1.02) H 02/05/25 04:00 Glucose 102 mg/dL (74-106) 02/05/25 04:00 Phosphorus 3.6 mg/dL (2.5-4.9) 02/05/25 04:00 Magnesium 1.8 mg/dL (1.6-2.4) 02/05/25 04:00 Total Bilirubin 0.6 mg/dL (0.2-1.0) 02/02/25 06:04 AST 151 U/L (15-37) H 02/02/25 06:04 ALT 52 U/L (13-56) 02/02/25 06:04 Alkaline Phosphatase 120 U/L (45-117) H D 02/02/25 06:04 Lipase 17 U/L (13-75) 01/28/25 13:54 Home Medications: Escitalopram Oxalate [Lexapro] 20 mg PO DAILY 06/24/18 Losartan Potassium 100 mg PO DAILY 06/24/18 Nitroglycerin [Nitrostat*] 0.4 mg SL PRN PRN 06/24/18 Trazodone HCl 150 mg PO BEDTIME 06/24/18 hydroCHLOROthiazide [Hydrochlorothiazide] 25 mg PO DAILY 06/24/18 Albuterol Sulfate Hfa 108 (90base) Mcg/Act 1 puff IH Q4HP PRN 01/29/25 Aspirin 81 mg PO DAILY 01/29/25 Clopidogrel Bisulfate [Plavix] 75 mg PO DAILY 01/29/25 Etodolac 400 mg PO BID 01/29/25 Fluticasone Propion/Salmeterol [Wixela 100-50 Inhub] 1 puff IH BID 01/29/25 Metoprolol Tartrate 25 mg PO BID 01/29/25 Prazosin HCl 2 mg PO BEDTIME 01/29/25 Ranolazine [Ranolazine ER] 1 mg PO BID 01/29/25 Rosuvastatin Calcium 40 mg PO DAILY 01/29/25 buPROPion HCL [Wellbutrin Xl] 300 mg PO DAILY 01/29/25 predniSONE [Prednisone*] 20 mg PO BID 01/29/25 pyRIDostigmine bromide [Pyridostigmine [place]] 60 mg PO Q4HR 01/29/25 Followup: Phi Garcia, SHAHRAM [Primary Care Provider] -
[2025-02-05 17:20] LABS: C-ANCA Anti-Proteinase 3 <1.0 AI (<1.0)
[2025-02-06 22:37] LABS: Anti-Nuclear Antibody Screen Positive (Negative)
[2025-02-06 23:03] LABS: Anti-Nuclear Antibody Pattern REPORT; Anti-Nuclear Antibody Titer 1:40 (Negative)
== END 2025-02-05 10:52 | disposition left against medical advice (07) | DRG 683 ==
LOC: ER 13:04 → ERHOLD 17:15 → 2ND 18:18
PROVIDERS: ADMIT Hospitalist; ATTEND Internal Medicine
PROC: 02HV33Z Insertion of Infusion Device into Superior Vena Cava, Percutaneous Approach (ICD-10-PCS; principal; 2025-02-03)
DX: N17.9 Acute kidney failure, unspecified (principal); E87.1 Hypo-osmolality and hyponatremia; K57.32 Diverticulitis of large intestine without perforation or abscess without bleeding; E87.6 Hypokalemia; K52.9 Noninfective gastroenteritis and colitis, unspecified; E86.0 Dehydration; I12.9 Hypertensive chronic kidney disease with stage 1 through stage 4 chronic kidney disease, or unspecified chronic kidney disease; N18.9 Chronic kidney disease, unspecified; D63.1 Anemia in chronic kidney disease; E86.9 Volume depletion, unspecified; F41.9 Anxiety disorder, unspecified; F43.10 Post-traumatic stress disorder, unspecified; J45.909 Unspecified asthma, uncomplicated; G70.00 Myasthenia gravis without (acute) exacerbation; I25.10 Atherosclerotic heart disease of native coronary artery without angina pectoris; I25.2 Old myocardial infarction; Z60.2 Problems related to living alone; Z95.5 Presence of coronary angioplasty implant and graft; Z88.0 Allergy status to penicillin; Z79.82 Long term (current) use of aspirin; Z79.52 Long term (current) use of systemic steroids; Z90.49 Acquired absence of other specified parts of digestive tract; Z53.29 Procedure and treatment not carried out because of patient's decision for other reasons; Z79.899 Other long term (current) drug therapy
CPT/HCPCS: 36415; 71045; 72052; 74176; 76770; 80053; 80069; 81001; 82043; 82550; 82570; 82607; 82728; 83520; 83540; 83605; 83690; 83735; 83970; 84100; 84132; 84156; 84165; 84439; 84443; 84466; 85025; 85044; 85610; 85730; 86021; 86038; 86160; 86225; 86704; 86705; 86706; 86803; 87040; 87045; 87046; 87324; 89055; 96361; 96365; 96375; 97110; 97116; 97161; 97530; 99285; A4216; J0360; J0696; J0744; J1644; J2003; J2270; J2405; J2470; J3475; J3480; J7030; J7040; Q0162